=== PATIENT | female | born 1980 ===

== ENCOUNTER → 2020-09-22 12:43 | Outpatient (BNVA) | payer OTHER, SELFPAY | PROVIDERS: PCP Internal Medicine; Referring Provider Internal Medicine; Visit Provider Physician Assistant | DX: K62.5 Hemorrhage of anus and rectum (principal); R10.33 Periumbilical pain; R19.5 Other fecal abnormalities | CPT/HCPCS: 99212 ==

== ENCOUNTER 2020-11-06 10:26 | Day surgery (SDC) | payer OTHER, SELFPAY ==
[2020-10-31 15:41] VITALS: BMI 23.8
--- NOTE | 2020-11-05 13:23 | HO.ANESPROP2 ---
Documented by User: Betzy Dickey 11/05/20 13:24 HPI - Anesthesia Eval Consult details Narrative: 40yo F for Colonoscopy PMFSH Past Medical History Medical History History of depression Hx of gastroenteritis Menopausal disorder Rectal bleeding Family History Family History Maternal Aunt Colon cancer Father No problems noted. 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 Allergies Allergy/AdvReac Type Severity Reaction Status Date / Time strawberry [STRAWBERRY] Allergy Unknown RASH Verified 11/06/20 10:45 Home Medications Medication Instructions Recorded Confirmed Type multivitamin 1 tab PO DAILY 09/22/20 10/31/20 History omeprazole 1 cap PO DAILY 10/31/20 10/31/20 History Exam Exam Date and Time: November 05, 2020 1323 Height,Weight and Vital Signs: Height 5 ft 2 in Weight 58.967 kg Assessment and Plan Assessment Anesthesia Assessment: Chart Reviewed Documented by User: Ezio Cartwright MD 11/06/20 12:25 PMFSH Past Medical History Medical History History of depression Hx of gastroenteritis Menopausal disorder Rectal bleeding Family History Family History Maternal Aunt Colon cancer Father No problems noted. 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 Allergies Allergy/AdvReac Type Severity Reaction Status Date / Time strawberry [STRAWBERRY] Allergy Unknown RASH Verified 11/06/20 10:45 Home Medications Medication Instructions Recorded Confirmed Type multivitamin 1 tab PO DAILY 09/22/20 10/31/20 History omeprazole 1 cap PO DAILY 10/31/20 10/31/20 History Exam Airway Mallampati Class: II TM Dist: >3cm Neck ROM: Full Loose/Missing/Broken Teeth: No Heart: rrr, ttp along sternum and left chest wall Lungs: nl Other: ao Assessment and Plan Assessment Anesthesia Assessment: Anesthesia Plan Discussed and Chart Reviewed Final Anesthetic Review NPO: Yes ASA Class: II Final Preanesthetic Review: No Changes in Pt Med Stat, Meds/Allgs Chart Reviewed, Consent Obtained/Reviewed and Anes Risks/Benef Reviewed Patient Risk: Low Procedure Risk: Low Anesthetic Plan Anesthetic Plan: MAC: Disposition: Standard PACU
[2020-11-06] VITALS (11 sets, daily range): BP systolic 98–123; BP diastolic 42–76; PULSE 75–94; RESP 14–20; TEMP 36.4–37.3; O2SAT 97–99
--- NOTE | 2020-11-06 | XR_ITS ---
EXAMINATION: XR ABDOMEN KUB CLINICAL INDICATION: Lower abdominal pain after colonoscopy COMPARISON: None TECHNIQUE: AP view of the abdomen. FINDINGS: There is air seen throughout the small and large bowel. There are no dilated loops of bowel to suggest obstruction. There is no evidence of free air. There are surgical clips in the right upper quadrant suggestive of previous cholecystectomy. There is a curvilinear metal density projecting over the left mid abdomen. This may represent something on the patient's skin or clothing. Clinical correlation is recommended to exclude possible foreign body. Bony structures are unremarkable.. XR/XR KUB IMPRESSION: No evidence of obstruction or free air. Curvilinear metal density projecting over the left upper quadrant/stomach. This may represent something on the patient's skin or clothing. Clinical correlation to exclude foreign body recommended.
--- NOTE | 2020-11-06 10:40 | PC.NURSE ---
patient states early menopaUSE STARTING WHEN SHE WAS 36. NO PERIODS.
--- NOTE | 2020-11-06 11:00 | PC.NURSE ---
MD COPELAND AWARE OF PATIENTS ONSET OF CP A FEW DAYS AGO. INCREASED PAIN WITH PALPATION OF MD COPELAND.
--- NOTE | 2020-11-06 11:12 | PC.NURSE ---
WILFRID FLEET ENEMA LAYING ON HER LEFT SIDE.
--- NOTE | 2020-11-06 11:13 | PC.NURSE ---
NO NEW ORDERS FROM ANESTHESIA
--- NOTE | 2020-11-06 11:28 | MHC.SHP ---
Pre-Procedural Eval Section B Chief Complaint: rectal bleeding Relevant Family History (Specify if Yes): No Relevant Social History: None Present Medications: see Short Stay Collaborative assessment Medical History: Significant History (History of depression Hx of gastroenteritis Rectal bleeding) History of Previous Operations: Relevant previous surgery/procedure and date(s) (cholecystectomy) Allergies: Allergies Allergy/AdvReac Type Severity Reaction Status Date / Time strawberry [STRAWBERRY] Allergy Unknown RASH Verified 11/06/20 10:45 Review of Systems Sugical H&P ROS: Negative: Constitution, Cardiovascular, Respiratory, Neurological, Psychiatric, Hem-Onc, Allergic/Immunologic, Gastrointestinal, Genitourinary, Musculoskeletal, Integumentary, Endocrine and Eyes/Ears/Nose/Throat Exam Surgical H&P Exam: Normal: HEENT, Normal: Heart, Normal: Lungs, Normal: Extremities, Normal: Abdomen, Normal: Skin and Normal: Neurological Plan Diagnosis/Plan: Unchanged I have reviewed the history and physical and performed a pertinent physical examination on my patient. No changes have occurred unless specified.
[2020-11-06] MEDS: Sodium Phosphate,Mono-Dibasic 133 ML ENEMA 266 ML PR (11:30)
[2020-11-06] MEDS: Lactated Ringers 1,000 ML 100 ML IVCONT (11:45)
--- NOTE | 2020-11-06 12:30 | P.BOP_ITS ---
Brief Operative Note Date of Service: 11/06/20 Pre-op diagnosis: rectal bleeding Post-op diagnosis: same Procedure: Operative Information Procedure Description: Colonoscopy COLONOSCOPY Instrument: Olympus variable stiffness pediatric scope 190L Colonoscopy Monitoring: Vital signs and clinical assessment, continuous EKG monitoring, Pulse oximetry, Carbon Dioxide monitoring and blood pressure monitoring were done throughout the procedure. Colon withdrawal time was 12 minutes. Procedure: The patient was placed in the left lateral decubitis position and pre-procedure medications were administered. After a digital rectal examination of the ano-rectum, the video colonoscope was inserted into the rectum and advanced through the colon to the cecum/TI. The colonoscope was slowly withdrawn in a retrograde panoramic fashion and the colon mucosa was carefully examined including a retroflexed view of the rectum. Findings and interventions are described below. Procedure Difficulty:mildly difficult Findings: Terminal Ileum-normal Cecum:normal Ascending Colon: normal Transverse Colon -normal Descending Colon:normal Sigmoid Colon: normal Rectum: Retroflexion with small to moderate sized internal hemorrhoids, grade I, there was erythema and granularity to the distal rectum consistent with mild proctitis, bx taken Anorectum - normal Colon preparation: [place] Bowel Preparation Scale Right colon; 0 Transverse colon: 1 Left colon; 2 (0 = Unprepared colon segment with mucosa not seen due to solid stool that cannot be cleared. 1 = Portion of mucosa of the colon segment seen, but other areas of the colon segment not well seen due to staining, residual stool and/or opaque liquid. 2 = Minor amount of residual staining, small fragments of stool and/or opaque liquid, but mucosa of colon segment seen well. 3 = Entire mucosa of colon segment seen well with no residual staining, small fragments of stool or opaque liquid) Impression and Post Procedure Diagnosis: internal hemorrhoids proctitis Plan: High fiber diet leaflet Avoid straining at stool, epsom salts and sitz bath, trial of steroid suppository and see if helps sx Repeat Colonoscopy in 2-3 years or earlier if clinically indicated Above findings were reviewed with the patient and relevant handouts were provided if indicated. Surgeon: Forrest Ruiz MD Anesthesia: MAC Estimated blood loss (mL): 0 Condition: stable Disposition: PACU
[2020-11-06] MEDS: Ibuprofen 400 MG TABLET PO (13:39)
[2020-11-06] MEDS: Dicyclomine HCl 10 MG CAPSULE PO (13:58)
[2020-11-06] MEDS: Simethicone 80 MG TAB.CHEW PO (14:52)
--- NOTE | 2020-12-04 11:17 | P.OP_ITS ---
Operative Note Operative Note Date of Service: 11/06/20 Narrative: ADDENDUM She was c/o deep lower abdo pain more into the pelvis, abdomen totally soft, no guarding or firmness, KUB with small amounts of gas and stool, no perf. She was given bentyl and ibuprofen, simethicone but sx persisted so sent to Ed, report given, may need UA and pelvic imaging, but no real clinical evidence of perforation--she did say she had exact same pain year ago which resolved itself Addendum Documented By:Forrest Ruiz MD11/06/20 1450 Addendum Signed By:<Electronically signed by Forrest Ruiz MD>11/06/20 2094 Brief Operative Note Date of Service: 11/06/20 Pre-op diagnosis: rectal bleeding Post-op diagnosis: same Procedure: Operative Information Procedure Description: Colonoscopy COLONOSCOPY Instrument: Olympus variable stiffness pediatric scope 190L Colonoscopy Monitoring: Vital signs and clinical assessment, continuous EKG monitoring, Pulse oximetry, Carbon Dioxide monitoring and blood pressure monitoring were done throughout the procedure. Colon withdrawal time was 12 minutes. Procedure: The patient was placed in the left lateral decubitis position and pre-procedure medications were administered. After a digital rectal examination of the ano-rectum, the video colonoscope was inserted into the rectum and advanced through the colon to the cecum/TI. The colonoscope was slowly withdrawn in a retrograde panoramic fashion and the colon mucosa was carefully examined including a retroflexed view of the rectum. Findings and interventions are described below. Procedure Difficulty:mildly difficult Findings: Terminal Ileum-normal Cecum:normal Ascending Colon: normal Transverse Colon -normal Descending Colon:normal Sigmoid Colon: normal Rectum: Retroflexion with small to moderate sized internal hemorrhoids, grade I, there was erythema and granularity to the distal rectum consistent with mild proctitis, bx taken Anorectum - normal Colon preparation: Everson Bowel Preparation Scale Right colon; 0 Transverse colon: 1 Left colon; 2 (0 = Unprepared colon segment with mucosa not seen due to solid stool that cannot be cleared. 1 = Portion of mucosa of the colon segment seen, but other areas of the colon segment not well seen due to staining, residual stool and/or opaque liquid. 2 = Minor amount of residual staining, small fragments of stool and/or opaque liquid, but mucosa of colon segment seen well. 3 = Entire mucosa of colon segment seen well with no residual staining, small fragments of stool or opaque liquid) Impression and Post Procedure Diagnosis: internal hemorrhoids proctitis Plan: High fiber diet leaflet Avoid straining at stool, epsom salts and sitz bath, trial of steroid suppository and see if helps sx Repeat Colonoscopy in 2-3 years or earlier if clinically indicated
== END 2020-11-06 23:59 | disposition home or self-care (01) ==
PROVIDERS: PCP Internal Medicine; Visit Provider Internal Medicine Gastroenterology
PROC: 0DJD8ZZ Inspection of Lower Intestinal Tract, Via Natural or Artificial Opening Endoscopic (ICD-10-PCS; CPT 45378; principal; 2020-11-06 11:50)
DX: K62.5 Hemorrhage of anus and rectum (principal); R10.30 Lower abdominal pain, unspecified; K62.89 Other specified diseases of anus and rectum; K64.0 First degree hemorrhoids
CPT/HCPCS: 45380; 74018; 88305

== ENCOUNTER 2020-11-06 15:29 | Emergency (ER) | payer OTHER, SELFPAY ==
[2020-11-06 15:30] VITALS: BP 114/58; PULSE 81; RESP 16; TEMP 37.1; O2SAT 99; BMI 23.6
--- NOTE | 2020-11-06 15:54 | US_ITS ---
EXAMINATION: PELVIC ULTRASOUND CLINICAL INFORMATION: Pelvic pain/abdominal pain COMPARISON: None TECHNIQUE: Both transabdominal and endovaginal scanning was performed. Color-flow spectral Doppler was also utilized. FINDINGS: An anteverted uterus is present measuring 3.0 x 4.4 x 6.5 cm for a volume of 45 mL. The endometrium appears unremarkable at 0.3 cm thick. No uterine masses are seen. The right ovary measures 1.8 x 0.9 x 1.4 cm for a volume of 1.2 mL. Left ovary measures 2.1 x 0.7 x 0.8 cm for a volume of 0.6 mL. Normal arterial and venous flow is noted in both ovaries. No free fluid is present in the cul-de-sac. US/US pelvic ovarian doppler IMPRESSION: Negative exam
--- NOTE | 2020-11-06 15:54 | US_ITS ---
EXAMINATION: PELVIC ULTRASOUND CLINICAL INFORMATION: Pelvic pain/abdominal pain COMPARISON: None TECHNIQUE: Both transabdominal and endovaginal scanning was performed. Color-flow spectral Doppler was also utilized. FINDINGS: An anteverted uterus is present measuring 3.0 x 4.4 x 6.5 cm for a volume of 45 mL. The endometrium appears unremarkable at 0.3 cm thick. No uterine masses are seen. The right ovary measures 1.8 x 0.9 x 1.4 cm for a volume of 1.2 mL. Left ovary measures 2.1 x 0.7 x 0.8 cm for a volume of 0.6 mL. Normal arterial and venous flow is noted in both ovaries. No free fluid is present in the cul-de-sac. US/US pelvic complete IMPRESSION: Negative exam
--- NOTE | 2020-11-06 15:55 | CT_ITS ---
EXAMINATION: CT ABDOMEN AND PELVIS WITH CONTRAST CLINICAL INFORMATION: Lower abdominal pain status post colonoscopy. COMPARISON: None TECHNIQUE: Multidetector volumetric images were obtained from the superior aspect of the liver through the pubic symphysis following administration 85 mL of Omnipaque 350 intravenous contrast. Sagittal and coronal reformatted images were obtained on the technologist's workstation. Oral Contrast: No. This CT examination was performed using dose optimization techniques as appropriate, variously including the following: *Automated exposure control. *Adjustment of mA and/or kV according to patient size (this includes techniques or standardized protocols for targeted exams where dose is matched to indication/reason for exam; i.e. extremities or head). *Use of iterative reconstruction technique. DLP: 403 mGy-cm FINDINGS: LUNG BASES: The visualized lung bases are unremarkable. LIVER, GALLBLADDER, AND BILIARY TREE: There is mild prominence of intrahepatic biliary ducts status post cholecystectomy. No focal liver mass is seen. PANCREAS: Unremarkable. SPLEEN: Unremarkable. ADRENAL GLANDS: Unremarkable. KIDNEYS AND URETERS: The kidneys are normal in size, shape, and attenuation. No hydronephrosis, hydroureter, or calculi seen. No perinephric stranding. BLADDER: Unremarkable. GASTROINTESTINAL TRACT: The small and large bowel are unremarkable. A large amount of fluid is present in the rectum. The appendix is unremarkable. No free intraperitoneal air is seen to suggest bowel rupture. ABDOMINAL WALL: No significant hernia is appreciated. LYMPH NODES: Normal. VASCULAR: Unremarkable. PELVIC VISCERA: An anteverted uterus is present. An abnormal adnexal mass is not seen. No free intraperitoneal fluid is present. OSSEOUS STRUCTURES: Unremarkable. CT/CT abdomen pelvis w con IMPRESSION: A cause for the patient's post colonoscopy lower abdominal pain has not been found.
[2020-11-06 16:24] VITALS: RESP 16
[2020-11-06] MEDS: ondansetron HCL 4 MG/2 ML VIAL IVPUSH (16:24)
[2020-11-06] MEDS: Morphine Sulfate 4 MG/ML CARTRIDGE IVPUSH (16:24)
[2020-11-06] MEDS: 0.9 % Sodium Chloride 1,000 ML 999 ML IV (16:24)
--- NOTE | 2020-11-06 16:33 | US_ITS ---
EXAMINATION: PELVIC ULTRASOUND CLINICAL INFORMATION: Pelvic pain/abdominal pain COMPARISON: None TECHNIQUE: Both transabdominal and endovaginal scanning was performed. Color-flow spectral Doppler was also utilized. FINDINGS: An anteverted uterus is present measuring 3.0 x 4.4 x 6.5 cm for a volume of 45 mL. The endometrium appears unremarkable at 0.3 cm thick. No uterine masses are seen. The right ovary measures 1.8 x 0.9 x 1.4 cm for a volume of 1.2 mL. Left ovary measures 2.1 x 0.7 x 0.8 cm for a volume of 0.6 mL. Normal arterial and venous flow is noted in both ovaries. No free fluid is present in the cul-de-sac. US/US transvaginal IMPRESSION: Negative exam
[2020-11-06 16:37] LABS: Basophils Percent Auto 0.4 % (0-2); Eosinophils Absolute Auto 0.1 X10*3/uL (0.0-0.4); Eosinophils Percent Auto 0.8 % (0-4); Hematocrit 32.5 % (37-47); Hemoglobin 10.8 g/dl (12.0-16.0); Imm Gran Abs Auto 0.02 X10*3/uL (0.00-0.03); Imm Gran Pct Auto 0.2 % (0.0-0.4); Lymphocytes Absolute Auto 2.6 X10*3/uL (1.2-4.9); Lymphocytes Percent Auto 25.2 % (20-40); MANUAL DIFF FLAG NO; Mean Corpuscular HGB Conc 33.2 g/dl (31.0-35.0); Mean Corpuscular Hemoglobin 30.1 pg (27.0-33.0); Mean Corpuscular Volume 90.5 fL (80-98); Mean Platelet Volume 9.7 fL (9.4-12.3); Monocytes Absolute Auto 0.4 X10*3/uL (0.1-1.2); Monocytes Percent Auto 3.8 % (2-11); Neutrophils Absolute Auto 7.1 X10*3/uL (2.0-8.3); Neutrophils Percent Auto 69.6 % (45-73); Platelet Count 254 X10*3/uL (160-400); Red Blood Count 3.59 X10*6/uL (4.20-5.50); Red Cell Distribution Width 11.5 % (11.0-16.0); White Blood Count 10.2 X10*3/uL (4.8-10.8)
--- NOTE | 2020-11-06 16:44 | ECG_ITS ---
Test Reason : ABDOMINAL PAIN Blood Pressure : / mmHG Vent. Rate : 082 BPM Atrial Rate : 082 BPM P-R Int : 146 ms QRS Dur : 074 ms QT Int : 390 ms P-R-T Axes : 060 058 040 degrees QTc Int : 455 ms Normal sinus rhythm Low voltage QRS Borderline ECG When compared to the previous EKG of No significant changes seen Referred By: [place] Dave Electronically Signed By:Kristian Mathews
--- NOTE | 2020-11-06 16:50 | PC.NURSE ---
Pt off at US
[2020-11-06 16:51] LABS: INTERNATIONAL NORM RATIO 1.1 (0.9-1.1); Prothrombin Time 13.4 SEC (10.8-13.0)
[2020-11-06 16:54] LABS: Partial Thromboplastin Time 29.8 SEC (24.1-38.0)
[2020-11-06 16:56] LABS: Alanine Aminotransferase 13 U/L (0-31); Albumin Level 4.1 g/dL (3.5-5.0); Alkaline Phosphatase 81 U/L (39-117); Anion Gap 11 (12-20); Aspartate Amino Transferase 16 U/L (5-31); Bilirubin Total 1.2 mg/dL (0.0-1.0); Blood Urea Nitrogen 10 mg/dL (9-16); Calcium 8.8 mg/dL (8.4-10.2); Carbon Dioxide 26 mmol/L (22-29); Chloride 107 mmol/L (96-108); Creatinine Clr Calc Pharmacy 87.8; Estimated Glomerular Filt Rate > 60; Glucose Random 81 mg/dL (60-115); Potassium 3.9 mmol/l (3.3-5.1); Sodium 140 mmol/L (135-145); Total Protein 6.6 g/dL (6.5-8.0)
[2020-11-06 17:07] LABS: Troponin-I High Sensitivity < 3.5 ng/L (<3.5-17.0)
--- NOTE | 2020-11-06 17:16 | ED_ITS ---
HPI - Abdominal Pain General Chief Complaint: Abdominal Pain Stated Complaint: Abdominal pain Time Seen by Provider: 11/06/20 15:54 Source: other (Short-stay SIRS) Limitations: no limitations History of Present Illness HPI narrative: This is a pleasant 40-year-old female with past medical history that is significant for early menopause no longer has her menses, cholecystectomy, rectal bleeding which she has been having for several months she in fact had a colonoscopy for this reason today and after colonoscopy he had lower abdominal pain for which she was given Bentyl, ibuprofen and simethicone and subsequently had a KUB that did not show any acute findings given the pain she was transferred to the emergency room for further evaluation. I did discuss the case with in person c Dr. Ruiz GI attending for hand off report. Again at this routine colonoscopy for assessment of abdominal pain/rectal bleeding which has been ongoing issue for several months overall uneventful procedure showed internal hemorrhoids and proctitis. MD elicited complaint: abdominal pain Quality: aching Radiation: none Migration to: no migration Exacerbating factors: nothing Associated symptoms: denies other symptoms Related Data Patient : No Home Medications Medication Instructions Recorded Confirmed multivitamin 1 tab PO DAILY 09/22/20 10/31/20 omeprazole 1 cap PO DAILY 10/31/20 10/31/20 Previous Rx's Medication Instructions Recorded miralax See Rx Instructions PO ONCE #238 g 09/22/20 hydrocortisone acetate [Anusol-HC] 25 mg TX BEDTIME #12 ea 11/06/20 Allergies Allergy/AdvReac Type Severity Reaction Status Date / Time strawberry [STRAWBERRY] Allergy Unknown RASH Verified 11/06/20 10:45 Review of Systems Review of Systems Constitutional: No Weight loss, No Fever, No Chills, No Night Sweats, No Fatigue, No Malaise ENT/Mouth: No Hearing loss, No Ear Pain, No Nasal Congestion, No Sinus Pain, No Hoarseness, No sore throat, No Rhinorrhea, No Swallowing Difficulty Eyes: No Eye Pain, No Swelling, No Redness, No Foreign Body, No Discharge, No Vision Changes Cardiovascular: No Chest Pain, No SOB, No Dyspnea on Exertion, No Orthopnea, No Edema, No Palpitations Respiratory: No Cough, No Sputum, No Wheezing, No Smoke Exposure, No Dyspnea Gastrointestinal:As noted in HPI, No Hematochezia, No Melena Genitourinary: no irregular bleeding, No Dysuria, No Urinary Frequency, No Hematuria, No Urinary Incontinence, No Urgency, No Flank Pain, No Urinary Flow Changes, No Hesitancy Musculoskeletal: No joint pain, No Myalgias, No Joint Swelling Skin: No Skin Lesions, No rash Neuro: No Weakness, No Numbness, No Paresthesias, No Loss of Consciousness, No Dizziness, No Headache Psych: No Social Issues Heme/Lymph: No Bruising, No Bleeding,No Lymphadenopathy Endocrine: No Polyuria, No Polydipsia, No Temperature Intolerance Physical Exam Vital Signs: Vital Signs: Last Vital Signs Temp 98.7 F 11/06/20 15:30 Pulse 85 11/06/20 17:48 Resp 16 11/06/20 17:48 BP 110/68 11/06/20 17:48 Pulse Ox 100 11/06/20 17:48 Body Mass Index 23.6 Reviewed Const: General: cooperative and healthy appearing; No acute distress or intoxicated appearing Nutritional Appearance: average body habitus Orientation/consciousness: patient oriented x3 HENMT: Head: Yes normal to inspection Ears: hearing grossly normal bilaterally Eyes: General: appearance normal, both eyes and all related structures Visual Molina: normal visual molina by confrontation Neck: Neck: Yes normal visual inspection and No tender Thyroid: Thyroid normal Chest: Chest palpation & inspection: normal inspection of the chest Resp: Effort & Inspection: normal respiratory effort Auscultation: clear to auscultation bilaterally Cardio: Jugular venous distension: no JVD Rhythm: regular rhythm Heart sounds: S1 normal heart sound present and S2 normal heart sound present GI: Inspection: Yes normal to inspection Palpation (GI): Soft to palpation and Tenderness to palpation present (GI) suprapubicly (mild ) Percussion: Yes normal to percussion Auscultation: normal bowel sounds : General: Yes no CVA tenderness Back/Spine/Pelvis: Back: no CVA tenderness Skin: General skin exam: no rashes or lesions noted Neuro: General: patient oriented x3 Extrem: General: Yes normal to inspection Course Course Course Narrative: She has been resting comfortably in no acute distress. Able to get out of bed to provide UA with stable gait no abdominal guarding with ambulation. Labs as far stable. I did have a further discussion with her in regards to the chronicity of her pain she does tell me that she has had this pain prior to the procedure and has been going on for a while over a year at least where she will get intermittent suprapubic pains that her shooting like sometimes in the mornings will have to stay still in the position and will resolve. She denies any vaginal bleeding or discharge. States she is not sexually active no concern for STI. This time her abdominal exam is remains stable. Pelvic ultrasound with ovarian Doppler unremarkable. CT is pending. Reevaluation(s) Reevaluation #1: CT of the abdomen pelvis without acute findings. Labs overall stable. Able to drink ginny reanna and crackers. Will be discharged home with outpatient follow-up. She does have follow-up for colonoscopy with Dr. Sara PERKINS and will follow up with her primary care doctor given the chronicity of the pain and the region I did advise her to follow-up gynecology as well. MDM - Abdominal Pain MDM Narrative Medical decision making narrative: Check labs, CT abdomen pelvis given postprocedure rule out perforation though clinically does not appear so, pelvic ultrasound ovarian cyst versus torsion less likely. Will treat with gradual fluids, antiemetics and analgesia p.r.n.. Will remain NPO. Differential Diagnosis Differential diagnosis: Likely abdominal pain, bowel perforation, calculus of kidney, ovarian cyst and renal colic; Unlikely aortic dissection, acute appendicitis, constipation, diverticulitis, endometriosis, gastroenteritis, gastritis, mesenteric ischemia, peptic ulcer disease and small bowel obstruction Medical Records Attestation: I reviewed the patient's medical records. Lab Data Attestation: I reviewed the patient's lab results. Result diagrams: 11/06/20 16:29 11/06/20 16:30 Labs: Lab Results 11/06/20 11/06/20 11/06/20 Range/Units 16:29 16:30 16:30 WBC 10.2 (4.8-10.8) X10*3/uL RBC 3.59 L (4.20-5.50) X10*6/uL Hgb 10.8 L (12.0-16.0) g/dl Hct 32.5 L (37-47) % MCV 90.5 (80-98) fL MCH 30.1 (27.0-33.0) pg MCHC 33.2 (31.0-35.0) g/dl RDW 11.5 (11.0-16.0) % Plt Count 254 (160-400) X10*3/uL MPV 9.7 (9.4-12.3) fL Immature Gran % (Auto) 0.2 (0.0-0.4) % Neut % (Auto) 69.6 (45-73) % Lymph % (Auto) 25.2 (20-40) % [place] % (Auto) 3.8 (2-11) % Eos % (Auto) 0.8 (0-4) % Baso % (Auto) 0.4 (0-2) % Lymph # (Auto) 2.6 (1.2-4.9) X10*3/uL [place] # (Auto) 0.4 (0.1-1.2) X10*3/uL Eos # (Auto) 0.1 (0.0-0.4) X10*3/uL Baso # (Auto) 0.0 (0.0-0.2) X10*3/uL Abs Immat Gran (auto) 0.02 (0.00-0.03) X10*3/uL Absolute Neuts (auto) 7.1 (2.0-8.3) X10*3/uL Absolute Nucleated RBC 0.000 (0.0-0.012) X10*3/uL Nucleated RBC % (auto) 0.0 (0.0-0.2) /100WBC PT 13.4 H (10.8-13.0) SEC INR 1.1 (0.9-1.1) APTT 29.8 (24.1-38.0) SEC Sodium 140 (135-145) mmol/L Potassium 3.9 (3.3-5.1) mmol/l Chloride 107 (96-108) mmol/L Carbon Dioxide 26 (22-29) mmol/L Anion Gap 11 L (12-20) BUN 10 (9-16) mg/dL Creatinine 0.66 (0.5-1.4) mg/dL Estim Creat Clear Calc 87.8 Estimated GFR > 60 Random Glucose 81 (60-115) mg/dL Calcium 8.8 (8.4-10.2) mg/dL Total Bilirubin 1.2 H (0.0-1.0) mg/dL AST 16 (5-31) U/L ALT 13 (0-31) U/L Alkaline Phosphatase 81 (39-117) U/L Troponin I High Sens (<3.5-17.0) ng/L Total Protein 6.6 (6.5-8.0) g/dL Albumin 4.1 (3.5-5.0) g/dL Urine Color Urine Appearance Urine pH (5.0-8.0) Ur Specific [place] (1.005-1.025) Urine Protein (NEG-TRACE) MG/DL Urine Glucose (UA) (NEG) MG/DL Urine Ketones (NEG) MG/DL Urine Blood (NEG) Urine Nitrite (NEG) Ur Leukocyte Esterase (NEG) Urine RBC (0) /HPF Urine WBC (0-4) /HPF Ur Squamous Epith Cells /LPF Urine Bacteria /LPF Urine Test (NEGATIVE) 11/06/20 11/06/20 Range/Units 16:30 17:47 WBC (4.8-10.8) X10*3/uL RBC (4.20-5.50) X10*6/uL Hgb (12.0-16.0) g/dl Hct (37-47) % MCV (80-98) fL MCH (27.0-33.0) pg MCHC (31.0-35.0) g/dl RDW (11.0-16.0) % Plt Count (160-400) X10*3/uL MPV (9.4-12.3) fL Immature Gran % (Auto) (0.0-0.4) % Neut % (Auto) (45-73) % Lymph % (Auto) (20-40) % [place] % (Auto) (2-11) % Eos % (Auto) (0-4) % Baso % (Auto) (0-2) % Lymph # (Auto) (1.2-4.9) X10*3/uL [place] # (Auto) (0.1-1.2) X10*3/uL Eos # (Auto) (0.0-0.4) X10*3/uL Baso # (Auto) (0.0-0.2) X10*3/uL Abs Immat Gran (auto) (0.00-0.03) X10*3/uL Absolute Neuts (auto) (2.0-8.3) X10*3/uL Absolute Nucleated RBC (0.0-0.012) X10*3/uL Nucleated RBC % (auto) (0.0-0.2) /100WBC PT (10.8-13.0) SEC INR (0.9-1.1) APTT (24.1-38.0) SEC Sodium (135-145) mmol/L Potassium (3.3-5.1) mmol/l Chloride (96-108) mmol/L Carbon Dioxide (22-29) mmol/L Anion Gap (12-20) BUN (9-16) mg/dL Creatinine (0.5-1.4) mg/dL Estim Creat Clear Calc Estimated GFR Random Glucose (60-115) mg/dL Calcium (8.4-10.2) mg/dL Total Bilirubin (0.0-1.0) mg/dL AST (5-31) U/L ALT (0-31) U/L Alkaline Phosphatase (39-117) U/L Troponin I High Sens < 3.5 (<3.5-17.0) ng/L Total Protein (6.5-8.0) g/dL Albumin (3.5-5.0) g/dL Urine Color STRAW Urine Appearance CLEAR Urine pH 6.5 (5.0-8.0) Ur Specific [place] 1.010 (1.005-1.025) Urine Protein NEG (NEG-TRACE) MG/DL Urine Glucose (UA) NEG (NEG) MG/DL Urine Ketones 5 (NEG) MG/DL Urine Blood TRACE (NEG) Urine Nitrite NEG (NEG) Ur Leukocyte Esterase NEG (NEG) Urine RBC 1-4 (0) /HPF Urine WBC 0 (0-4) /HPF Ur Squamous Epith Cells 1+ /LPF Urine Bacteria NONE /LPF Urine Test NEGATIVE (NEGATIVE) Imaging Data Pelvic ovarian ultrasound: Radiologist's impression: [address] [address] Ultrasound Report Signed Patient: Alisson Clayton#: [id number] : 1980Acct:[id number] Age/Sex: 40 / FADM Date: 11/06/20 Loc: HO.ED Attending Dr: Ordering Physician: [place] Dave [facility] Date of Service: 11/06/20 Procedure(s): US pelvic complete Accession Number(s): [id number] cc: [place] Dave [facility]~ EXAMINATION: PELVIC ULTRASOUND CLINICAL INFORMATION: Pelvic pain/abdominal pain COMPARISON: None TECHNIQUE: Both transabdominal and endovaginal scanning was performed. Color-flow spectral Doppler was also utilized. FINDINGS: An anteverted uterus is present measuring 3.0 x 4.4 x 6.5 cm for a volume of 45 mL. The endometrium appears unremarkable at 0.3 cm thick. No uterine masses are seen. The right ovary measures 1.8 x 0.9 x 1.4 cm for a volume of 1.2 mL. Left ovary measures 2.1 x 0.7 x 0.8 cm for a volume of 0.6 mL. Normal arterial and venous flow is noted in both ovaries. No free fluid is present in the cul-de-sac. US/US pelvic complete IMPRESSION: Negative exam Dictated By:MOON GARCIA MD Signed By:<Electronically signed by MOON GARCIA MD in OV>11/06/20 1729 DD/ 1554 TD/TT: Manager Plan: SS Discharge Plan Discharge Clinical Impression: Abdominal pain Qualifiers: Abdominal location: lower abdomen, unspecified Qualified Code(s): R10.30 - Lower abdominal pain, unspecified Patient Disposition: Home, Self-Care Instructions: Abdominal Pain (ED) Additional Instructions: Drink plenty fluids High-fiber diet Avoid straining Follow-up with GI as planned Return if any concerns or worsening symptoms Thank you Prescriptions: No Action omeprazole 20 mg capsule,delayed release(DR/EC) 1 cap PO DAILY RF: 0 hydrocortisone acetate [Anusol-HC] 25 mg suppository 25 mg TX BEDTIME Qty: 12 RF: 0 multivitamin Tablet 1 tab PO DAILY RF: 0 miralax See Rx Instructions PO ONCE Qty: 238 RF: 0 Referrals: Cira Rouse MD [Primary Care Provider] - 1 week Interventions: ED Discharge Assessment Last Done: 11/06/20 20:07 Discharge Date/Time: 11/06/20 20:08 [facility] Past Medical History Medical History History of depression Hx of gastroenteritis Menopausal disorder Rectal bleeding Surgical History History of cholecystectomy Family History Family History Maternal Aunt Colon cancer Father No problems noted. 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
[2020-11-06] MEDS: iohexoL 350 MG/ML 100 ML INFUS..BTL IV (17:39)
[2020-11-06 17:48] VITALS: BP 110/68; PULSE 85; RESP 16; O2SAT 100
[2020-11-06 18:02] LABS: Glucose Urine UA NEG (NEG); Leukocyte Esterase Urine NEG (NEG); Nitrite Urine NEG (NEG); PH 6.5 (5.0-8.0); Urine Blood TRACE (NEG); Urine Ketones 5 MG/DL (NEG); Urine Protein NEG (NEG-TRACE)
[2020-11-06 18:04] LABS: Appearance Urine CLEAR; Color Urine STRAW
[2020-11-06 18:05] LABS: UPreg QC Valid YES; Urine Pregnancy NEGATIVE (NEGATIVE)
[2020-11-06 18:15] LABS: Squamous Epithelial Cell Urine 1+ /LPF; WBC Urine 0 /HPF (0-4)
== END 2020-11-06 20:08 | disposition home or self-care (01) ==
PROVIDERS: Nurse Practitioner Primary Care; Emergency Provider Emergency Medicine; PCP Internal Medicine
DX: R10.30 Lower abdominal pain, unspecified (principal); R10.2 Pelvic and perineal pain; Z87.891 Personal history of nicotine dependence; Z79.899 Other long term (current) drug therapy
CPT/HCPCS: 36415; 74177; 76830; 76856; 80053; 81001; 81025; 84484; 85025; 85610; 85730; 93005; 93975; 96361; 96374; 96375; 99284; J2270; J2405; Q9967

== ENCOUNTER → 2020-11-19 11:39 | Outpatient (BNVA) | payer OTHER, SELFPAY | PROVIDERS: PCP Internal Medicine; Referring Provider Internal Medicine; Visit Provider Physician Assistant | DX: Z76.89 Persons encountering health services in other specified circumstances (principal) ==

== ENCOUNTER 2021-01-24 17:33 | Emergency (ER) | payer OTHER, SELFPAY ==
--- NOTE | ~2021-01-24 | XR_ITS ---
EXAMINATION: XR CHEST CLINICAL INFORMATION: Cough, question COVID COMPARISON: None TECHNIQUE: Frontal view of the chest was obtained. FINDINGS: Lungs are clear. No focal consolidation or mass. Normal pulmonary vascularity. No pleural effusion or pneumothorax. Normal heart size. No acute osseous abnormality. XR/XR chest 1V IMPRESSION: No acute pulmonary disease.
--- NOTE | 2021-01-24 17:43 | ED_ITS ---
HPI - General Adult General Chief complaint: General Medical Stated complaint: Chills bodyaches vomiting Time Seen by Provider: 01/24/21 17:43 Source: patient Mode of arrival: ambulatory Limitations: no limitations History of Present Illness HPI narrative: Patient been vomiting since yesterday avoided multiple times no significant abdominal pain complaining of some slight low back pain slight discomfort when urinating no fever no chills feel tired no recent exposure to COVID-19 occasional dry cough+ Onset (ago): day(s) Related Data Home Medications Medication Instructions Recorded Confirmed multivitamin 1 tab PO DAILY 09/22/20 10/31/20 omeprazole 1 cap PO DAILY 10/31/20 10/31/20 Previous Rx's Medication Instructions Recorded hydrocortisone acetate [Anusol-HC] [address] BEDTIME #12 ea 11/06/20 hydrocortisone acetate [address] BEDTIME PRN #12 ea 11/20/20 rectal suppository hydrocortisone 2.5 % topical cream [address] DAILY PRN #30 g 11/26/20 with perineal applicator ondansetron 4 mg PO Q6-8H PRN #15 tab 01/24/21 Allergies Allergy/AdvReac Type Severity Reaction Status Date / Time strawberry [STRAWBERRY] Allergy Unknown RASH Verified 11/06/20 10:45 Review of Systems Review of Systems: Constitutional : No Weight loss, No Fever, No Chills ENT/Mouth : No sore throat, No Rhinorrhea Eyes: No Eye Pain, No Swelling Cardiovascular : No Chest Pain, no palpitations Respiratory : + Cough, No Sputum, no shortness of breath Gastrointestinal : ++ Nausea, ++ Vomiting, No Diarrhea, No abdominal Pain, no black stools Genitourinary : No Dysuria, No Urinary Frequency Musculoskeletal : No joint pain, No Myalgias, No Joint Swelling Skin : No Skin Lesions, No rash Neuro : No Weakness, No Numbness, No Dizziness, No Headache Psych : No Anxiety/Panic, No Depression Heme/Lymph: No Bruising, No Lymphadenopathy Endocrine : No Polyuria, No Polydipsia All other systems reviewed and are negative [facility] Past Medical History Medical History Hemorrhoids History of depression Hx of gastroenteritis Menopausal disorder Rectal bleeding Surgical History History of cholecystectomy Family History Family History Maternal Aunt Colon cancer Father No problems noted. 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 Oriented X3. Looks sick Eyes: Pupils equal, round and reactive to light. ENT: Pharynx normal. Neck: Normal inspection. Neck supple. CVS: Normal heart rate and rhythm. Pulses normal. Respiratory: No respiratory distress. Breath sounds normal. Abdomen: Soft and nontender. Bowel sounds are present, no mass palpable, no CVA tenderness Skin: Skin warm and dry. Normal skin color. Normal skin turgor. Extremities: No lower extremity edema. Neuro: Oriented X 3. No motor deficit. No sensory deficit. Medical Decision Making MDM Narrative Medical decision making narrative: Patient has acute gastritis with vomiting without any significant abdominal pain workup is negative for any acute pathology chest x-ray and UA also negative COVID-19 also negative patient feeling much better after IV fluids able to take p.o. fluids Lab Data Lab results reviewed: Yes I reviewed the patient's lab results. Result diagrams: 01/24/21 19:25 01/24/21 19:25 Labs: Lab Results 01/24/21 01/24/21 01/24/21 Range/Units 19:25 19:25 19:25 WBC 9.8 (4.8-10.8) X10*3/uL RBC 4.06 L (4.20-5.50) X10*6/uL Hgb 12.1 (12.0-16.0) g/dl Hct 36.6 L (37-47) % MCV 90.1 (80-98) fL MCH 29.8 (27.0-33.0) pg MCHC 33.1 (31.0-35.0) g/dl RDW 11.8 (11.0-16.0) % Plt Count 278 (160-400) X10*3/uL MPV 9.6 (9.4-12.3) fL Immature Gran % (Auto) 0.3 (0.0-0.4) % Neut % (Auto) 86.4 H (45-73) % Lymph % (Auto) 11.2 L (20-40) % [place] % (Auto) 1.8 L (2-11) % Eos % (Auto) 0.0 (0-4) % Baso % (Auto) 0.3 (0-2) % Lymph # (Auto) 1.1 L (1.2-4.9) X10*3/uL [place] # (Auto) 0.2 (0.1-1.2) X10*3/uL Eos # (Auto) 0.0 (0.0-0.4) X10*3/uL Baso # (Auto) 0.0 (0.0-0.2) X10*3/uL Abs Immat Gran (auto) 0.03 (0.00-0.03) X10*3/uL Absolute Neuts (auto) 8.5 H (2.0-8.3) X10*3/uL Absolute Nucleated RBC 0.000 (0.0-0.012) X10*3/uL Nucleated RBC % (auto) 0.0 (0.0-0.2) /100WBC Sodium 139 (135-145) mmol/L Potassium 4.0 (3.3-5.1) mmol/L Chloride 104 (96-108) mmol/L Carbon Dioxide 25 (22-29) mmol/L Anion Gap 14 (12-20) BUN 12 (9-16) mg/dL Creatinine 0.68 (0.5-1.4) mg/dL Estim Creat Clear Calc 96.1 Estimated GFR > 60 Random Glucose 89 (60-115) mg/dL Calcium 9.3 (8.4-10.2) mg/dL Total Bilirubin 1.1 H (0.0-1.0) mg/dL Direct Bilirubin 0.4 (0.0-0.5) mg/dL AST 14 (5-31) U/L ALT 18 (0-31) U/L Alkaline Phosphatase 90 (39-117) U/L Total Protein 7.5 (6.5-8.0) g/dL Albumin 4.5 (3.5-5.0) g/dL Lipase (8-78) U/L Urine Color Urine Appearance Urine pH (5.0-8.0) Ur Specific [place] (1.005-1.025) Urine Protein (NEG-TRACE) MG/DL Urine Glucose (UA) (NEG) MG/DL Urine Ketones (NEG) MG/DL Urine Blood (NEG) Urine Nitrite (NEG) Ur Leukocyte Esterase (NEG) COVID-19 (KORINA) Negative (Negative) COVID-19 Clin Com See Note 01/24/21 01/24/21 Range/Units 19:25 21:38 WBC (4.8-10.8) X10*3/uL RBC (4.20-5.50) X10*6/uL Hgb (12.0-16.0) g/dl Hct (37-47) % MCV (80-98) fL MCH (27.0-33.0) pg MCHC (31.0-35.0) g/dl RDW (11.0-16.0) % Plt Count (160-400) X10*3/uL MPV (9.4-12.3) fL Immature Gran % (Auto) (0.0-0.4) % Neut % (Auto) (45-73) % Lymph % (Auto) (20-40) % [place] % (Auto) (2-11) % Eos % (Auto) (0-4) % Baso % (Auto) (0-2) % Lymph # (Auto) (1.2-4.9) X10*3/uL [place] # (Auto) (0.1-1.2) X10*3/uL Eos # (Auto) (0.0-0.4) X10*3/uL Baso # (Auto) (0.0-0.2) X10*3/uL Abs Immat Gran (auto) (0.00-0.03) X10*3/uL Absolute Neuts (auto) (2.0-8.3) X10*3/uL Absolute Nucleated RBC (0.0-0.012) X10*3/uL Nucleated RBC % (auto) (0.0-0.2) /100WBC Sodium (135-145) mmol/L Potassium (3.3-5.1) mmol/L Chloride (96-108) mmol/L Carbon Dioxide (22-29) mmol/L Anion Gap (12-20) BUN (9-16) mg/dL Creatinine (0.5-1.4) mg/dL Estim Creat Clear Calc Estimated GFR Random Glucose (60-115) mg/dL Calcium (8.4-10.2) mg/dL Total Bilirubin (0.0-1.0) mg/dL Direct Bilirubin (0.0-0.5) mg/dL AST (5-31) U/L ALT (0-31) U/L Alkaline Phosphatase (39-117) U/L Total Protein (6.5-8.0) g/dL Albumin (3.5-5.0) g/dL Lipase 22 (8-78) U/L Urine Color YELLOW Urine Appearance CLEAR Urine pH 7.0 (5.0-8.0) Ur Specific [place] 1.020 (1.005-1.025) Urine Protein NEG (NEG-TRACE) MG/DL Urine Glucose (UA) NEG (NEG) MG/DL Urine Ketones 15 (NEG) MG/DL Urine Blood NEG (NEG) Urine Nitrite NEG (NEG) Ur Leukocyte Esterase NEG (NEG) COVID-19 (KORINA) (Negative) COVID-19 Clin Com Discharge Plan Discharge Clinical Impression: Acute gastroenteritis Patient Disposition: Home, Self-Care Instructions: Acute Nausea and Vomiting (ED) Additional Instructions: Drink plenty of fluids take medication for nausea as advised Report to the ER/PCP if not better Prescriptions: New ondansetron 4 mg tablet,disintegrating 4 mg PO Q6-8H PRN (Reason: Nausea And Vomiting) Qty: 15 RF: 0 No Action hydrocortisone [Anusol-HC] 2.5 % cream with perineal applicator [address] DAILY PRN (Reason: hemorrhoids) Qty: 30 RF: 3 omeprazole 20 mg capsule,delayed release(DR/EC) 1 cap PO DAILY RF: 0 hydrocortisone acetate [Anusol-HC] 25 mg suppository [address] BEDTIME Qty: 12 RF: 0 multivitamin Tablet 1 tab PO DAILY RF: 0 hydrocortisone acetate [Anusol-HC] 25 mg suppository [address] BEDTIME PRN (Reason: hemorrhoids) Qty: 12 RF: 2 Interventions: ED Discharge Assessment Last Done: 01/24/21 22:02 Discharge Date/Time: 01/24/21 22:45
[2021-01-24 18:16] VITALS: BP 119/70; PULSE 92; RESP 16; TEMP 36.7; O2SAT 98; BMI 26.6
[2021-01-24 19:31] LABS: MANUAL DIFF FLAG NO
[2021-01-24 19:33] LABS: Basophils Percent Auto 0.3 % (0-2); Hematocrit 36.6 % (37-47); Hemoglobin 12.1 g/dl (12.0-16.0); Imm Gran Abs Auto 0.03 X10*3/uL (0.00-0.03); Imm Gran Pct Auto 0.3 % (0.0-0.4); Lymphocytes Absolute Auto 1.1 X10*3/uL (1.2-4.9); Lymphocytes Percent Auto 11.2 % (20-40); Mean Corpuscular HGB Conc 33.1 g/dl (31.0-35.0); Mean Corpuscular Hemoglobin 29.8 pg (27.0-33.0); Mean Corpuscular Volume 90.1 fL (80-98); Mean Platelet Volume 9.6 fL (9.4-12.3); Monocytes Absolute Auto 0.2 X10*3/uL (0.1-1.2); Monocytes Percent Auto 1.8 % (2-11); Neutrophils Absolute Auto 8.5 X10*3/uL (2.0-8.3); Neutrophils Percent Auto 86.4 % (45-73); Platelet Count 278 X10*3/uL (160-400); Red Blood Count 4.06 X10*6/uL (4.20-5.50); Red Cell Distribution Width 11.8 % (11.0-16.0); White Blood Count 9.8 X10*3/uL (4.8-10.8)
[2021-01-24] MEDS: ondansetron HCL 4 MG/2 ML VIAL IVPUSH (19:37)
[2021-01-24] MEDS: 0.9 % Sodium Chloride 1,000 ML 999 ML IVCONT (19:37)
[2021-01-24 20:00] VITALS: BP 117/68; PULSE 103; RESP 17; O2SAT 100
[2021-01-24 20:14] LABS: Alanine Aminotransferase 18 U/L (0-31); Albumin Level 4.5 g/dL (3.5-5.0); Alkaline Phosphatase 90 U/L (39-117); Anion Gap 14 (12-20); Aspartate Amino Transferase 14 U/L (5-31); Bilirubin Direct 0.4 mg/dL (0.0-0.5); Bilirubin Total 1.1 mg/dL (0.0-1.0); Blood Urea Nitrogen 12 mg/dL (9-16); Calcium 9.3 mg/dL (8.4-10.2); Carbon Dioxide 25 mmol/L (22-29); Chloride 104 mmol/L (96-108); Creatinine Clr Calc Pharmacy 96.1; Estimated Glomerular Filt Rate > 60; Glucose Random 89 mg/dL (60-115); Lipase 22 U/L (8-78); Sodium 139 mmol/L (135-145); Total Protein 7.5 g/dL (6.5-8.0)
[2021-01-24 20:38] LABS: COVID-19 Test Negative (Negative); IDNOW Serial# 9DD0AD1C
[2021-01-24 21:46] LABS: Glucose Urine UA NEG (NEG); Leukocyte Esterase Urine NEG (NEG); Nitrite Urine NEG (NEG); Urine Blood NEG (NEG); Urine Ketones 15 MG/DL (NEG); Urine Protein NEG (NEG-TRACE)
[2021-01-24 21:47] LABS: Appearance Urine CLEAR; Color Urine YELLOW
== END 2021-01-24 22:45 | disposition home or self-care (01) ==
PROVIDERS: Emergency Provider Internal Medicine; PCP Internal Medicine
DX: K52.9 Noninfective gastroenteritis and colitis, unspecified (principal); Z20.822 Contact with and (suspected) exposure to COVID-19
CPT/HCPCS: 36415; 71045; 80048; 80076; 81003; 83690; 85025; 87635; 96361; 96374; 99284; J2405

== ENCOUNTER 2021-07-29 02:42 | Emergency (ER) | payer SELFPAY ==
--- NOTE | ~2021-07-29 | US_ITS ---
EXAMINATION: Pelvic ultrasound CLINICAL INDICATION: Lower abdominal pain COMPARISON: Ultrasound pelvis 11/06/[address] abdomen pelvis 11/06/2020 TECHNIQUE: Transabdominal and endovaginal scanning was performed. FINDINGS: An anteverted uterus is present measuring 6.0 x 3.3 x 4.2 cm. Normal-appearing endometrium present measuring 0.3 cm. No gestational sac is seen. No fluid is present in the endometrial canal. The right ovary measures 3.0 x 1.1 x 1.4 cm and has a echogenic focus within it but otherwise appears normal. The left ovary measures 1.7 x 1.2 x 0.9 cm and appears unremarkable. There is trace fluid present in the cul-de-sac. Color flow Doppler imaging demonstrates both ovaries with normal arterial and venous flow. US/US OB pelvic and transvaginal IMPRESSION: No is seen. Recommend correlation with hCG and repeat ultrasound. Punctate echogenic focus present in the right ovary.
[2021-07-29 02:44] VITALS: BP 117/67; PULSE 81; RESP 20; TEMP 37; O2SAT 98; BMI 22.4
--- NOTE | 2021-07-29 02:56 | ED_ITS ---
HPI - Nausea/Vomiting/Diarrhea General Chief complaint: Nausea/Vomiting/Diarrhea Stated complaint: vomiting, fever Time Seen by Provider: 07/29/21 02:45 Source: patient Mode of arrival: ambulatory Limitations: no limitations History of Present Illness MD elicited complaint: nausea, vomiting and abdominal pain Onset (ago): day(s) (2) Description of vomiting: food contents and watery Associated nausea: Yes Associated abdominal pain: Yes Location of pain: diffuse Radiation: diffuse Pain consistency: constant Severity: moderate Quality: cramping Exacerbating factors: none Context: foreign travel (came back from [place] 7 days ago) Associated symptoms: loss of appetite, malaise and nausea/vomiting Related Data Home Medications Medication Instructions Recorded Confirmed multivitamin 1 tab PO DAILY 09/22/20 10/31/20 omeprazole 20 mg capsule,delayed 1 cap PO DAILY 10/31/20 10/31/20 release Previous Rx's Medication Instructions Recorded hydrocortisone acetate 25 mg 25 mg MD BEDTIME #12 ea 11/06/20 rectal suppository (Anusol-HC) hydrocortisone acetate 25 mg 25 mg MD BEDTIME PRN #12 ea 11/20/20 rectal suppository (Anusol-HC) hydrocortisone 2.5 % topical cream 1 appl MD DAILY PRN #30 g 11/26/20 with perineal applicator (Anusol-HC) ondansetron 4 mg disintegrating 4 mg PO Q6-8H PRN #15 tab 01/24/21 tablet metoclopramide HCl 10 mg tablet 10 mg PO Q6H PRN #20 tab 07/29/21 (Reglan) promethazine 25 mg rectal 25 mg MD Q6H PRN #12 ea 07/29/21 suppository Allergies Allergy/AdvReac Type Severity Reaction Status Date / Time strawberry [STRAWBERRY] Allergy Unknown RASH Verified 07/29/21 02:44 Review of Systems Review of Systems: Constitutional : No Weight loss, pos Fever, pos Chills ENT/Mouth : No sore throat, No Rhinorrhea Eyes: No Swelling, No Redness Cardiovascular : No Chest Pain, No SOB, NoEdema Respiratory : No Cough, No Sputum, No Wheezing Gastrointestinal : Positive Nausea, Positive Vomiting, no Diarrhea, positive abdominal Pain, No Hematochezia, No Melena, no constipation Genitourinary : No Dysuria, No Urinary Frequency, No Hematuria, No Urgency Musculoskeletal : No joint pain, No Myalgias, No Joint Swelling Skin : No Skin Lesions, No rash Neuro : No Weakness, No Numbness, No Dizziness, No Headache Psych : No Anxiety/Panic, No Depression Heme/Lymph: No Bruising, No Lymphadenopathy Endocrine : No Polyuria, No Polydipsia All other systems reviewed and are negative. Gastrointestinal: Gastrointestinal: Reports nausea PMFSH Past Medical History Attestation statement: The following information was validated with the patient. Medical History Hemorrhoids History of depression Hx of gastroenteritis Menopausal disorder Rectal bleeding Surgical History History of cholecystectomy Family History Family History Maternal Aunt Colon cancer Father No problems noted. 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 Oriented X3. No acute distress. Anxious Eyes: Pupils equal, round and reactive to light. ENT: Pharynx normal. Neck: Normal inspection. Neck supple. CVS: Normal heart rate and rhythm. Pulses normal. Respiratory: No respiratory distress. Breath sounds normal. Abdomen: Soft and mild diffuse ttp no rebound or guarding Skin: Skin warm and dry. Normal skin color. Normal skin turgor. Extremities: No lower extremity edema. No calf ttp Neuro: Oriented X 3. No motor deficit. No sensory deficit. Course Course Course Narrative: + UPT will add on quant and US - the patient is shocked states she thought she was in menopause US negative will refer to PCP to recheck levels of hcg in 3 days UA is contamined nausea has improved patient feels much better MDM - Nausea/Vomiting/Diarrhea MDM Narrative Medical decision making narrative: 40 yo female here with 2 days of diffuse abdominal pain n/v - no diarrhea did travel from [place] recently. She is vaccinated. At this time will need labs, IVF, IV pepcid/toradol/zofran. No localized ttp dispo per results and findings. Will reassss after labs possible CT scan to r/o appendicitis. Lab Data Result diagrams: 07/29/21 03:02 07/29/21 03:02 Labs: Lab Results 07/29/21 07/29/21 07/29/21 Range/Units 03:02 03:02 03:02 WBC 8.2 (4.8-10.8) X10*3/uL RBC 4.22 (4.20-5.50) X10*6/uL Hgb 12.6 (12.0-16.0) g/dl Hct 37.9 (37-47) % MCV 89.8 (80-98) fL MCH 29.9 (27.0-33.0) pg MCHC 33.2 (31.0-35.0) g/dl RDW 12.1 (11.0-16.0) % Plt Count 288 (160-400) X10*3/uL MPV 9.7 (9.4-12.3) fL Immature Gran % (Auto) 0.2 (0.0-0.4) % Neut % (Auto) 54.3 (45-73) % Lymph % (Auto) 37.3 (20-40) % [place] % (Auto) 5.5 (2-11) % Eos % (Auto) 2.2 (0-4) % Baso % (Auto) 0.5 (0-2) % Lymph # (Auto) 3.1 (1.2-4.9) X10*3/uL [place] # (Auto) 0.5 (0.1-1.2) X10*3/uL Eos # (Auto) 0.2 (0.0-0.4) X10*3/uL Baso # (Auto) 0.0 (0.0-0.2) X10*3/uL Abs Immat Gran (auto) 0.02 (0.00-0.03) X10*3/uL Absolute Neuts (auto) 4.5 (2.0-8.3) X10*3/uL Absolute Nucleated RBC 0.000 (0.0-0.012) X10*3/uL Nucleated RBC % (auto) 0.0 (0.0-0.2) /100WBC Sodium 137 (135-145) mmol/L Potassium 3.9 (3.3-5.1) mmol/L Chloride 104 (96-108) mmol/L Carbon Dioxide 23 (22-29) mmol/L Anion Gap 14 (12-20) BUN 11 (9-16) mg/dL Creatinine 0.75 (0.5-1.4) mg/dL Estim Creat Clear Calc 77.3 Estimated GFR > 60 Random Glucose 109 (60-115) mg/dL Calcium 9.8 (8.4-10.2) mg/dL Magnesium 2.1 (1.6-2.6) mg/dL Total Bilirubin 1.0 (0.0-1.0) mg/dL Direct Bilirubin 0.4 (0.0-0.5) mg/dL AST 15 (5-31) U/L ALT 13 (0-31) U/L Alkaline Phosphatase 74 (39-117) U/L Total Protein 7.3 (6.5-8.0) g/dL Albumin 4.5 (3.5-5.0) g/dL Lipase 26 (8-78) U/L Beta HCG, Quant 3 mIU/mL Urine Color Urine Appearance Urine pH (5.0-8.0) Ur Specific [place] (1.005-1.025) Urine Protein (NEG-TRACE) MG/DL Urine Glucose (UA) (NEG) MG/DL Urine Ketones (NEG) MG/DL Urine Blood (NEG) Urine Nitrite (NEG) Ur Leukocyte Esterase (NEG) Urine RBC (0) /HPF Urine WBC (0-4) /HPF Ur Squamous Epith Cells /LPF Calcium Oxalate Crystal /LPF Urine Bacteria /LPF Urine Mucus /LPF Urine Test (NEGATIVE) COVID-19 ([facility]) Negative (Negative) COVID-19 Clin Com See Note 07/29/21 07/29/21 Range/Units 04:01 04:01 WBC (4.8-10.8) X10*3/uL RBC (4.20-5.50) X10*6/uL Hgb (12.0-16.0) g/dl Hct (37-47) % MCV (80-98) fL MCH (27.0-33.0) pg MCHC (31.0-35.0) g/dl RDW (11.0-16.0) % Plt Count (160-400) X10*3/uL MPV (9.4-12.3) fL Immature Gran % (Auto) (0.0-0.4) % Neut % (Auto) (45-73) % Lymph % (Auto) (20-40) % [place] % (Auto) (2-11) % Eos % (Auto) (0-4) % Baso % (Auto) (0-2) % Lymph # (Auto) (1.2-4.9) X10*3/uL [place] # (Auto) (0.1-1.2) X10*3/uL Eos # (Auto) (0.0-0.4) X10*3/uL Baso # (Auto) (0.0-0.2) X10*3/uL Abs Immat Gran (auto) (0.00-0.03) X10*3/uL Absolute Neuts (auto) (2.0-8.3) X10*3/uL Absolute Nucleated RBC (0.0-0.012) X10*3/uL Nucleated RBC % (auto) (0.0-0.2) /100WBC Sodium (135-145) mmol/L Potassium (3.3-5.1) mmol/L Chloride (96-108) mmol/L Carbon Dioxide (22-29) mmol/L Anion Gap (12-20) BUN (9-16) mg/dL Creatinine (0.5-1.4) mg/dL Estim Creat Clear Calc Estimated GFR Random Glucose (60-115) mg/dL Calcium (8.4-10.2) mg/dL Magnesium (1.6-2.6) mg/dL Total Bilirubin (0.0-1.0) mg/dL Direct Bilirubin (0.0-0.5) mg/dL AST (5-31) U/L ALT (0-31) U/L Alkaline Phosphatase (39-117) U/L Total Protein (6.5-8.0) g/dL Albumin (3.5-5.0) g/dL Lipase (8-78) U/L Beta HCG, Quant mIU/mL Urine Color DARK YELLOW Urine Appearance CLEAR Urine pH 5.5 (5.0-8.0) Ur Specific [place] >= 1.030 H (1.005-1.025) Urine Protein TRACE (NEG-TRACE) MG/DL Urine Glucose (UA) NEG (NEG) MG/DL Urine Ketones 15 (NEG) MG/DL Urine Blood TRACE (NEG) Urine Nitrite NEG (NEG) Ur Leukocyte Esterase TRACE H (NEG) Urine RBC 1-4 (0) /HPF Urine WBC 5-9 H (0-4) /HPF Ur Squamous Epith Cells 1+ /LPF Calcium Oxalate Crystal 1+ /LPF Urine Bacteria 2+ /LPF Urine Mucus 2+ /LPF Urine Test POSITIVE H (NEGATIVE) COVID-19 ([facility]) (Negative) COVID-19 Clin Com Discharge Plan Discharge Clinical Impression: Vomiting, Abdominal pain, Elevated serum hCG Patient Disposition: Home, Self-Care Instructions: Acute Nausea and Vomiting (ED), Abdominal Pain (ED) Additional Instructions: return to ED for any worsening symptoms or concerns your ultrasound is negative it is unusual that your test and serum test were positive your doctor needs to repeat a blood hcg test in 2 days - the result today was 3 YOU CAN COME BACK TO THE ED WELL. use a suppository only if the oral is not working to treat your nausea IMPRESSION: No is seen. Recommend correlation with hCG and repeat ultrasound. Punctate echogenic focus present in the right ovary. Prescriptions: New promethazine 25 mg suppository 25 mg MD Q6H PRN (Reason: nausea and vomiting) Qty: 12 RF: 0 metoclopramide HCl [Reglan] 10 mg tablet 10 mg PO Q6H PRN (Reason: nausea and vomiting) Qty: 20 RF: 0 No Action hydrocortisone [Anusol-HC] 2.5 % cream with perineal applicator 1 appl MD DAILY PRN (Reason: hemorrhoids) Qty: 30 RF: 3 omeprazole 20 mg capsule,delayed release(DR/EC) 1 cap PO DAILY RF: 0 hydrocortisone acetate [Anusol-HC] 25 mg suppository 25 mg MD BEDTIME Qty: 12 RF: 0 ondansetron 4 mg tablet,disintegrating 4 mg PO Q6-8H PRN (Reason: Nausea And Vomiting) Qty: 15 RF: 0 multivitamin Tablet 1 tab PO DAILY RF: 0 hydrocortisone acetate [Anusol-HC] 25 mg suppository 25 mg MD BEDTIME PRN (Reason: hemorrhoids) Qty: 12 RF: 2 Referrals: Physician,Unknown [Primary Care Provider] - 3 days Stand Alone Forms: Work/School Release
[2021-07-29 03:06] LABS: MANUAL DIFF FLAG NO
[2021-07-29] MEDS: Ketorolac Tromethamine 15 MG/ML VIAL IVPUSH (03:06)
[2021-07-29] MEDS: 0.9 % Sodium Chloride 1,000 ML 999 ML IVCONT (03:06)
[2021-07-29] MEDS: Famotidine/PF 20 MG/2 ML VIAL IVPUSH (03:06)
[2021-07-29] MEDS: ondansetron HCL 4 MG/2 ML VIAL IVPUSH (03:06)
[2021-07-29 03:11] LABS: Basophils Percent Auto 0.5 % (0-2); Eosinophils Absolute Auto 0.2 X10*3/uL (0.0-0.4); Eosinophils Percent Auto 2.2 % (0-4); Hematocrit 37.9 % (37-47); Hemoglobin 12.6 g/dl (12.0-16.0); Imm Gran Abs Auto 0.02 X10*3/uL (0.00-0.03); Imm Gran Pct Auto 0.2 % (0.0-0.4); Lymphocytes Absolute Auto 3.1 X10*3/uL (1.2-4.9); Lymphocytes Percent Auto 37.3 % (20-40); Mean Corpuscular HGB Conc 33.2 g/dl (31.0-35.0); Mean Corpuscular Hemoglobin 29.9 pg (27.0-33.0); Mean Corpuscular Volume 89.8 fL (80-98); Mean Platelet Volume 9.7 fL (9.4-12.3); Monocytes Absolute Auto 0.5 X10*3/uL (0.1-1.2); Monocytes Percent Auto 5.5 % (2-11); Neutrophils Absolute Auto 4.5 X10*3/uL (2.0-8.3); Neutrophils Percent Auto 54.3 % (45-73); Platelet Count 288 X10*3/uL (160-400); Red Blood Count 4.22 X10*6/uL (4.20-5.50); Red Cell Distribution Width 12.1 % (11.0-16.0); White Blood Count 8.2 X10*3/uL (4.8-10.8)
[2021-07-29 03:38] LABS: Alanine Aminotransferase 13 U/L (0-31); Albumin Level 4.5 g/dL (3.5-5.0); Alkaline Phosphatase 74 U/L (39-117); Anion Gap 14 (12-20); Aspartate Amino Transferase 15 U/L (5-31); Bilirubin Direct 0.4 mg/dL (0.0-0.5); Blood Urea Nitrogen 11 mg/dL (9-16); Calcium 9.8 mg/dL (8.4-10.2); Carbon Dioxide 23 mmol/L (22-29); Chloride 104 mmol/L (96-108); Creatinine Clr Calc Pharmacy 77.3; Estimated Glomerular Filt Rate > 60; Glucose Random 109 mg/dL (60-115); Lipase 26 U/L (8-78); Magnesium 2.1 mg/dL (1.6-2.6); Potassium 3.9 mmol/L (3.3-5.1); Sodium 137 mmol/L (135-145); Total Protein 7.3 g/dL (6.5-8.0)
[2021-07-29 03:39] LABS: COVID-19 Test Negative (Negative); IDNOW Serial# 55D5AD1C
[2021-07-29 04:09] LABS: Glucose Urine UA NEG (NEG); Leukocyte Esterase Urine TRACE (NEG); Nitrite Urine NEG (NEG); PH 5.5 (5.0-8.0); Specific Gravity - Urine >= 1.030 (1.005-1.025); UACC Culture Trigger YES; Urine Blood TRACE (NEG); Urine Ketones 15 MG/DL (NEG); Urine Protein TRACE MG/DL (NEG-TRACE)
[2021-07-29 04:11] LABS: Appearance Urine CLEAR; Color Urine DARK YELLOW
[2021-07-29 04:14] LABS: UPreg QC Valid YES; Urine Pregnancy POSITIVE (NEGATIVE)
[2021-07-29 04:20] LABS: Bacteria Urine 2+ /LPF; Calcium Oxalate Crystals Urine 1+ /LPF; Mucus Urine 2+ /LPF; Squamous Epithelial Cell Urine 1+ /LPF
[2021-07-29] MEDS: diphenhydrAMINE HCL 50 MG/ML VIAL 25 MG IVPUSH (04:28)
[2021-07-29] MEDS: Metoclopramide HCl 10 MG/2 ML VIAL IVPUSH (04:29)
[2021-07-29 05:02] LABS: HCG Quantitative 3 mIU/mL
[2021-07-29 07:11] VITALS: BP 101/55; PULSE 67; RESP 16; TEMP 36.7; O2SAT 100
== END 2021-07-29 07:22 | disposition home or self-care (01) ==
PROVIDERS: Emergency Provider Emergency Medicine
DX: R11.2 Nausea with vomiting, unspecified (principal); R10.9 Unspecified abdominal pain; Z20.822 Contact with and (suspected) exposure to COVID-19; Z79.899 Other long term (current) drug therapy
CPT/HCPCS: 36415; 76801; 76817; 80048; 80076; 81001; 81025; 83690; 83735; 84702; 85025; 87086; 87635; 96361; 96374; 96375; 99285; J1200; J1885; J2405; J2765

== ENCOUNTER 2021-07-31 16:07 | Emergency (ER) | payer SELFPAY ==
[2021-07-31 16:26] VITALS: BP 117/77; PULSE 76; RESP 16; TEMP 36.8; O2SAT 98; BMI 22.3
[2021-07-31 18:31] LABS: HCG Quantitative 4 mIU/mL
--- NOTE | 2021-07-31 20:07 | ED_ITS ---
HPI - Recheck/Abnormal Lab/Rx General Chief Complaint: Recheck/Abnormal Lab/Rx Stated Complaint: blood test Time Seen by Provider: 07/31/21 20:07 Source: patient Mode of arrival: ambulatory Limitations: no limitations History of Present Illness HPI narrative: 40-year-old female with positive HCG without being presents for repeat hCG value. Symptoms since prior visit: no new symptoms Context: planned re-check Associated symptoms: none Related Data Home Medications Medication Instructions Recorded Confirmed multivitamin 1 tab PO DAILY 09/22/20 10/31/20 omeprazole 20 mg capsule,delayed 1 cap PO DAILY 10/31/20 10/31/20 release Previous Rx's Medication Instructions Recorded hydrocortisone acetate 25 mg 25 mg IA BEDTIME #12 ea 11/06/20 rectal suppository (Anusol-HC) hydrocortisone acetate 25 mg 25 mg IA BEDTIME PRN #12 ea 11/20/20 rectal suppository (Anusol-HC) hydrocortisone 2.5 % topical cream 1 appl IA DAILY PRN #30 g 11/26/20 with perineal applicator (Anusol-HC) ondansetron 4 mg disintegrating 4 mg PO Q6-8H PRN #15 tab 01/24/21 tablet metoclopramide HCl 10 mg tablet 10 mg PO Q6H PRN #20 tab 07/29/21 (Reglan) promethazine 25 mg rectal 25 mg IA Q6H PRN #12 ea 07/29/21 suppository Allergies Allergy/AdvReac Type Severity Reaction Status Date / Time strawberry [STRAWBERRY] Allergy Unknown RASH Verified 07/29/21 02:44 Review of Systems Review of Systems: Constitutional: No Fever, No Chills ENT/Mouth: No Ear Pain, No Hoarseness, No sore throat Eyes: No Eye Pain, No Swelling, No Redness, No Foreign Body Cardiovascular: No Chest Pain, No SOB Respiratory: No Cough, No Dyspnea Gastrointestinal: No Nausea, No Vomiting, No Diarrhea, No abdominal Pain Genitourinary: No Dysuria, No Hematuria Musculoskeletal: No joint pain, No Myalgias, No Joint Swelling Skin: No Skin lacerations, No rash Neuro: No Weakness, No Numbness, No Paresthesias, No Loss of Consciousness, No Dizziness, No Headache Psych: No Anxiety/Panic, No Depression Heme/Lymph: no easy bruising, no Lymphadenopathy Endocrine: No Polyuria, No Polydipsia Yes all other systems are reviewed and are negative [facility] Past Medical History Attestation statement: The following information was validated with the patient. Source: old records reviewed Medical History Hemorrhoids History of depression Hx of gastroenteritis Menopausal disorder Rectal bleeding Surgical History History of cholecystectomy Family History Family History Maternal Aunt Colon cancer Father No problems noted. 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 Oriented X3. No acute distress. Eyes: Pupils equal, round and reactive to light. ENT: Pharynx normal. Neck: Normal inspection. Neck supple. CVS: Normal heart rate and rhythm. Pulses normal. Respiratory: No respiratory distress. Breath sounds normal. Abdomen: Soft and nontender. Skin: Skin warm and dry. Normal skin color. Normal skin turgor. Extremities: No lower extremity edema. Neuro: No motor deficit. No sensory deficit. Course Course Course Narrative: 40-year-old female presents for repeat hCG testing. Repeat hCG level 4, patient with advised to follow up with Gynecology, as she does not have [address]. Patient verbalized understanding of and agrees to plan of care. MDM - Recheck/Abnormal Lab/Rx MDM Narrative Medical decision making narrative: Elevated hCG level Medical Records Attestation: I reviewed the patient's medical records. Lab Data Attestation: I reviewed the patient's lab results. Labs: Lab Results 07/31/21 Range/Units 17:41 Beta HCG, Quant 4 mIU/mL Discharge Plan Discharge Clinical Impression: Elevated serum human chorionic gonadotropin (hCG) level in female, not Patient Disposition: Home, Self-Care Additional Instructions: You were evaluated for a repeat hCG level. Your level is 4, which is 1 point higher than 3 days ago. You must follow-up with gynecology for further care. Please call Dr Hale for an evaluation. Thank you for choosing this emergency department for evaluation. Please follow-up with primary care physician as needed. Return to the emergency department for any new, concerning, or worsening symptoms. Prescriptions: No Action hydrocortisone [Anusol-HC] 2.5 % cream with perineal applicator 1 appl IA DAILY PRN (Reason: hemorrhoids) Qty: 30 RF: 3 promethazine 25 mg suppository 25 mg IA Q6H PRN (Reason: nausea and vomiting) Qty: 12 RF: 0 metoclopramide HCl [Reglan] 10 mg tablet 10 mg PO Q6H PRN (Reason: nausea and vomiting) Qty: 20 RF: 0 omeprazole 20 mg capsule,delayed release(DR/EC) 1 cap PO DAILY RF: 0 hydrocortisone acetate [Anusol-HC] 25 mg suppository 25 mg IA BEDTIME Qty: 12 RF: 0 ondansetron 4 mg tablet,disintegrating 4 mg PO Q6-8H PRN (Reason: Nausea And Vomiting) Qty: 15 RF: 0 multivitamin Tablet 1 tab PO DAILY RF: 0 hydrocortisone acetate [Anusol-HC] 25 mg suppository 25 mg IA BEDTIME PRN (Reason: hemorrhoids) Qty: 12 RF: 2 Referrals: Robert Hale MD [Physician] - 2 days (Elevated hCG level, not ) Interventions: ED Discharge Assessment Last Done: 07/31/21 20:23 Discharge Date/Time: 07/31/21 20:24
== END 2021-07-31 20:24 | disposition home or self-care (01) ==
PROVIDERS: Physician Assistant; Emergency Provider Emergency Medicine Emergency Medical Services; PCP Internal Medicine
DX: R79.89 Other specified abnormal findings of blood chemistry (principal); Z79.899 Other long term (current) drug therapy
CPT/HCPCS: 36415; 84702; 99283

== ENCOUNTER 2021-08-02 14:11 | Emergency (ER) | payer SELFPAY ==
[2021-08-02 14:16] VITALS: BP 152/70; PULSE 100; RESP 17; TEMP 36.8; O2SAT 100; BMI 22.3
--- NOTE | 2021-08-02 15:50 | PC.NURSE ---
Pt recently seen here last week, found to have the positive urine test. However, U/S r/o . Per pt, she has started menopause.
--- NOTE | 2021-08-02 16:33 | ECG_ITS ---
Test Reason : DIZZINESS Blood Pressure : / mmHG Vent. Rate : 067 BPM Atrial Rate : 067 BPM P-R Int : 142 ms QRS Dur : 070 ms QT Int : 392 ms P-R-T Axes : 019 059 040 degrees QTc Int : 414 ms Poor data quality, interpretation may be adversely affected Normal sinus rhythm Normal ECG When compared with ECG of 06-NOV-2020 17:53, No significant change was found Referred By: Clair Wiley Electronically Signed By:ARIEL CARDONA
--- NOTE | 2021-08-02 16:40 | ED_ITS ---
HPI - Dizziness General Chief Complaint: Dizziness Stated Complaint: dizziness, nausea Time Seen by Provider: 08/02/21 16:07 Source: patient Mode of arrival: ambulatory History of Present Illness HPI Narrative: 40-year-old female with a past medical history of hemorrhoids, depression, s/p cholecystectomy, positive test in our ED on 07/29/21, presenting to the ED complaining of lightheadedness, generalized fatigue since last night & persistent nausea/pelvic cramping since prior evaluation. Reports associated chest tightness with increased anxiety. Denies fever, chills, cough, SOB, headache, diarrhea, vaginal bleeding, vaginal discharge, dysuria/hematuria MD elicited complaint: lightheadedness Related Data Home Medications Medication Instructions Recorded Confirmed multivitamin 1 tab PO DAILY 09/22/20 10/31/20 omeprazole 20 mg capsule,delayed 1 cap PO DAILY 10/31/20 10/31/20 release Previous Rx's Medication Instructions Recorded hydrocortisone acetate 25 mg 25 mg AR BEDTIME #12 ea 11/06/20 rectal suppository (Anusol-HC) hydrocortisone acetate 25 mg 25 mg AR BEDTIME PRN #12 ea 11/20/20 rectal suppository (Anusol-HC) hydrocortisone 2.5 % topical cream 1 appl AR DAILY PRN #30 g 11/26/20 with perineal applicator (Anusol-HC) ondansetron 4 mg disintegrating 4 mg PO Q6-8H PRN #15 tab 01/24/21 tablet metoclopramide HCl 10 mg tablet 10 mg PO Q6H PRN #20 tab 07/29/21 (Reglan) promethazine 25 mg rectal 25 mg AR Q6H PRN #12 ea 07/29/21 suppository Allergies Allergy/AdvReac Type Severity Reaction Status Date / Time strawberry [STRAWBERRY] Allergy Unknown RASH Verified 08/02/21 14:16 Review of Systems Review of Systems: Constitutional: No Fever, No Chills, No Fatigue, No Malaise ENT/Mouth: No Ear Pain, No Nasal Congestion, No sore throat, No Rhinorrhea, No Swallowing Difficulty Eyes: No Eye Pain, No Swelling, No Vision Changes Cardiovascular: No Chest Pain, No SOB, No Dyspnea on Exertion, No Orthopnea, No Edema, No Palpitations Respiratory: No Cough, No Dyspnea Gastrointestinal: + Nausea, No Vomiting, No Diarrhea, No Constipation, + Abdominal pain, No Hematochezia, No Melena Genitourinary: No irregular bleeding, No Dysuria, No Urinary Frequency, No Hematuria, No Urinary Incontinence, No Urgency, No Flank Pain Musculoskeletal: No joint pain, No Myalgias, No Joint Swelling Skin: No Skin Lesions, No rash Neuro: No Weakness, No Numbness, No Loss of Consciousness, + lightheaded, No Headache Yes all other systems are reviewed and are negative Neurologic: Denies Abnormal speech present [facility] Past Medical History Attestation statement: The following information was validated with the patient. Medical History Hemorrhoids History of depression Hx of gastroenteritis Menopausal disorder Rectal bleeding Surgical History History of cholecystectomy Family History Family History Maternal Aunt Colon cancer Father No problems noted. 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 Physical Exam Vital Signs: Vital Signs: Last Vital Signs Temp 98.8 F 08/02/21 19:19 Pulse 77 08/02/21 19:37 Resp 18 08/02/21 19:19 BP 123/72 08/02/21 19:37 Pulse Ox 99 08/02/21 19:19 Body Mass Index 22.3 Const: General: cooperative, healthy appearing and no acute distress Orientation/consciousness: patient oriented x3 Limitations: no limitations HENMT: Head: Yes normal to inspection Ears: hearing grossly normal bilaterally General nose exam: Normal external nose present Face and sinus: Yes normal facial exam Eyes: General: appearance normal, both eyes and all related structures EOM: EOMs intact bilaterally Neck: Neck: Yes normal visual inspection and Yes no meningeal signs Resp: Effort & Inspection: normal respiratory effort Auscultation: clear to auscultation bilaterally, no rales, no rhonchi and no wheezes Cardio: Rate: regular rate Heart sounds: S1 normal heart sound present and S2 normal heart sound present GI: Inspection: Yes normal to inspection Palpation (GI): Soft to palpation, nontender, no guarding and not rigid Skin: Rashes: no rashes Wounds: no wounds Neuro: General: patient oriented x3, tone normal, moves all extremities, no meningeal signs, no focal motor deficits and CN's II-XI intact bilaterally Cranial nerves: Yes CN's II-XII intact bilaterally Cognition (Neuro): normal cognition Speech: No Abnormal speech present Gait exam (Neuro): Normal gait present Motor exam (neuro): 5/5 motor strength present throughout and Pronator motor function not present Coordination: [id number] test normal Romberg Test: Negative Extrem: General: Yes normal to inspection Course Course Course Narrative: -1817--no leukocytosis. H&H stable. Labs otherwise unremarkable. HCG today 3 which is not consistent with -1957--orthostatic vital signs negative -UA negative MDM - Dizziness MDM Narrative Medical decision making narrative: 40-year-old female with a past medical history of hemorrhoids, depression, s/p cholecystectomy, positive test in our ED on 07/29/21, presenting to the ED complaining of lightheadedness, generalized fatigue since last night & persistent nausea/pelvic cramping since prior evaluation. On exam VSS, NAD, nontoxic appearing, no focal neuro deficits, abdomen soft/nontender. Concern for dehydration, rule out anemia. Lower concern for ectopic/viable . Low concern for CVA/CVT. Low concern for appendicitis/diverticulitis without tenderness on exam From 07/29 which were unremarkable other than hCG 3, repeat on 07/31 was 4, this is not consistent with a viable . UA on 07/29 contaminated/infected, Cx grew lactobacillus species 10,000-50,000 >> will repeat UA today. Pelvic ultrasound on 07/29 did not see Plan: EKG, labs, UA, orthostatics, IVF, symptomatic treatment, reassess Medical Records Attestation: I reviewed the patient's medical records. Lab Data Attestation: I reviewed the patient's lab results. Result diagrams: 08/02/21 17:14 08/02/21 17:14 Labs: Lab Results 08/02/21 08/02/21 08/02/21 Range/Units 17:14 17:14 17:14 WBC 7.1 (4.8-10.8) X10*3/uL RBC 4.03 L (4.20-5.50) X10*6/uL Hgb 12.0 (12.0-16.0) g/dl Hct 36.0 L (37-47) % MCV 89.3 (80-98) fL MCH 29.8 (27.0-33.0) pg MCHC 33.3 (31.0-35.0) g/dl RDW 12.1 (11.0-16.0) % Plt Count 278 (160-400) X10*3/uL MPV 9.7 (9.4-12.3) fL Immature Gran % (Auto) 0.1 (0.0-0.4) % Neut % (Auto) 48.5 (45-73) % Lymph % (Auto) 41.3 H (20-40) % [place] % (Auto) 6.8 (2-11) % Eos % (Auto) 2.6 (0-4) % Baso % (Auto) 0.7 (0-2) % Lymph # (Auto) 2.9 (1.2-4.9) X10*3/uL [place] # (Auto) 0.5 (0.1-1.2) X10*3/uL Eos # (Auto) 0.2 (0.0-0.4) X10*3/uL Baso # (Auto) 0.1 (0.0-0.2) X10*3/uL Abs Immat Gran (auto) 0.01 (0.00-0.03) X10*3/uL Absolute Neuts (auto) 3.4 (2.0-8.3) X10*3/uL Absolute Nucleated RBC 0.000 (0.0-0.012) X10*3/uL Nucleated RBC % (auto) 0.0 (0.0-0.2) /100WBC Sodium 140 (135-145) mmol/L Potassium 4.0 (3.3-5.1) mmol/L Chloride 107 (96-108) mmol/L Carbon Dioxide 25 (22-29) mmol/L Anion Gap 12 (12-20) BUN 11 (9-16) mg/dL Creatinine 0.70 (0.5-1.4) mg/dL Estim Creat Clear Calc 82.8 Estimated GFR > 60 Random Glucose 92 (60-115) mg/dL Calcium 10.3 H (8.4-10.2) mg/dL Magnesium 2.0 (1.6-2.6) mg/dL Total Bilirubin 0.8 (0.0-1.0) mg/dL Direct Bilirubin 0.3 (0.0-0.5) mg/dL AST 12 (5-31) U/L ALT 16 (0-31) U/L Alkaline Phosphatase 71 (39-117) U/L Troponin I High Sens < 3.5 (<3.5-17.0) ng/L Total Protein 7.3 (6.5-8.0) g/dL Albumin 4.5 (3.5-5.0) g/dL Lipase 26 (8-78) U/L Beta HCG, Quant 3 mIU/mL Urine Color Urine Appearance Urine pH (5.0-8.0) Ur Specific [place] (1.005-1.025) Urine Protein (NEG-TRACE) MG/DL Urine Glucose (UA) (NEG) MG/DL Urine Ketones (NEG) MG/DL Urine Blood (NEG) Urine Nitrite (NEG) Ur Leukocyte Esterase (NEG) Urine RBC (0) /HPF Urine WBC (0-4) /HPF Ur Squamous Epith Cells /LPF Urine Bacteria /LPF 08/02/21 Range/Units 19:33 WBC (4.8-10.8) X10*3/uL RBC (4.20-5.50) X10*6/uL Hgb (12.0-16.0) g/dl Hct (37-47) % MCV (80-98) fL MCH (27.0-33.0) pg MCHC (31.0-35.0) g/dl RDW (11.0-16.0) % Plt Count (160-400) X10*3/uL MPV (9.4-12.3) fL Immature Gran % (Auto) (0.0-0.4) % Neut % (Auto) (45-73) % Lymph % (Auto) (20-40) % [place] % (Auto) (2-11) % Eos % (Auto) (0-4) % Baso % (Auto) (0-2) % Lymph # (Auto) (1.2-4.9) X10*3/uL [place] # (Auto) (0.1-1.2) X10*3/uL Eos # (Auto) (0.0-0.4) X10*3/uL Baso # (Auto) (0.0-0.2) X10*3/uL Abs Immat Gran (auto) (0.00-0.03) X10*3/uL Absolute Neuts (auto) (2.0-8.3) X10*3/uL Absolute Nucleated RBC (0.0-0.012) X10*3/uL Nucleated RBC % (auto) (0.0-0.2) /100WBC Sodium (135-145) mmol/L Potassium (3.3-5.1) mmol/L Chloride (96-108) mmol/L Carbon Dioxide (22-29) mmol/L Anion Gap (12-20) BUN (9-16) mg/dL Creatinine (0.5-1.4) mg/dL Estim Creat Clear Calc Estimated GFR Random Glucose (60-115) mg/dL Calcium (8.4-10.2) mg/dL Magnesium (1.6-2.6) mg/dL Total Bilirubin (0.0-1.0) mg/dL Direct Bilirubin (0.0-0.5) mg/dL AST (5-31) U/L ALT (0-31) U/L Alkaline Phosphatase (39-117) U/L Troponin I High Sens (<3.5-17.0) ng/L Total Protein (6.5-8.0) g/dL Albumin (3.5-5.0) g/dL Lipase (8-78) U/L Beta HCG, Quant mIU/mL Urine Color STRAW Urine Appearance CLEAR Urine pH 6.5 (5.0-8.0) Ur Specific [place] 1.015 (1.005-1.025) Urine Protein NEG (NEG-TRACE) MG/DL Urine Glucose (UA) NEG (NEG) MG/DL Urine Ketones NEG (NEG) MG/DL Urine Blood NEG (NEG) Urine Nitrite NEG (NEG) Ur Leukocyte Esterase 1+ H (NEG) Urine RBC 0 (0) /HPF Urine WBC 1-4 (0-4) /HPF Ur Squamous Epith Cells 1+ /LPF Urine Bacteria TRACE /LPF Discharge Plan Discharge Clinical Impression: Lightheadedness Patient Disposition: Home, Self-Care Instructions: Lightheadedness (ED) Additional Instructions: Your blood work is reassuring today in the ED You are hCG is again 3, this is not consistent with viable , however this should be monitored until the level becomes undetectable, you need to follow-up with OBGYN in 2-3 days for repeat labs/evaluation If her symptoms persist or worsen, constant worsening abdominal pain, developed vaginal bleeding/discharge, please return to the ED immediately Prescriptions: No Action hydrocortisone [Anusol-HC] 2.5 % cream with perineal applicator 1 appl AR DAILY PRN (Reason: hemorrhoids) Qty: 30 RF: 3 promethazine 25 mg suppository 25 mg AR Q6H PRN (Reason: nausea and vomiting) Qty: 12 RF: 0 metoclopramide HCl [Reglan] 10 mg tablet 10 mg PO Q6H PRN (Reason: nausea and vomiting) Qty: 20 RF: 0 omeprazole 20 mg capsule,delayed release(DR/EC) 1 cap PO DAILY RF: 0 hydrocortisone acetate [Anusol-HC] 25 mg suppository 25 mg AR BEDTIME Qty: 12 RF: 0 ondansetron 4 mg tablet,disintegrating 4 mg PO Q6-8H PRN (Reason: Nausea And Vomiting) Qty: 15 RF: 0 multivitamin Tablet 1 tab PO DAILY RF: 0 hydrocortisone acetate [Anusol-HC] 25 mg suppository 25 mg AR BEDTIME PRN (Reason: hemorrhoids) Qty: 12 RF: 2 Referrals: Robert Hale MD [Physician] - 2 days
[2021-08-02] MEDS: Meclizine HCl 25 MG TABLET PO (17:12)
[2021-08-02] MEDS: Metoclopramide HCl 10 MG/2 ML VIAL IVPUSH (17:12)
[2021-08-02] MEDS: diphenhydrAMINE HCL 50 MG/ML VIAL 25 MG IVPUSH (17:12)
[2021-08-02 17:17] LABS: MANUAL DIFF FLAG NO
[2021-08-02] MEDS: 0.9 % Sodium Chloride 1,000 ML 999 ML IVCONT (17:19)
[2021-08-02 17:23] LABS: Basophils Absolute Auto 0.1 X10*3/uL (0.0-0.2); Basophils Percent Auto 0.7 % (0-2); Eosinophils Absolute Auto 0.2 X10*3/uL (0.0-0.4); Eosinophils Percent Auto 2.6 % (0-4); Imm Gran Abs Auto 0.01 X10*3/uL (0.00-0.03); Imm Gran Pct Auto 0.1 % (0.0-0.4); Lymphocytes Absolute Auto 2.9 X10*3/uL (1.2-4.9); Lymphocytes Percent Auto 41.3 % (20-40); Mean Corpuscular HGB Conc 33.3 g/dl (31.0-35.0); Mean Corpuscular Hemoglobin 29.8 pg (27.0-33.0); Mean Corpuscular Volume 89.3 fL (80-98); Mean Platelet Volume 9.7 fL (9.4-12.3); Monocytes Absolute Auto 0.5 X10*3/uL (0.1-1.2); Monocytes Percent Auto 6.8 % (2-11); Neutrophils Absolute Auto 3.4 X10*3/uL (2.0-8.3); Neutrophils Percent Auto 48.5 % (45-73); Platelet Count 278 X10*3/uL (160-400); Red Blood Count 4.03 X10*6/uL (4.20-5.50); Red Cell Distribution Width 12.1 % (11.0-16.0); White Blood Count 7.1 X10*3/uL (4.8-10.8)
[2021-08-02 17:38] LABS: Troponin-I High Sensitivity < 3.5 ng/L (<3.5-17.0)
[2021-08-02 17:39] LABS: Alanine Aminotransferase 16 U/L (0-31); Albumin Level 4.5 g/dL (3.5-5.0); Alkaline Phosphatase 71 U/L (39-117); Anion Gap 12 (12-20); Aspartate Amino Transferase 12 U/L (5-31); Bilirubin Direct 0.3 mg/dL (0.0-0.5); Bilirubin Total 0.8 mg/dL (0.0-1.0); Blood Urea Nitrogen 11 mg/dL (9-16); Calcium 10.3 mg/dL (8.4-10.2); Chloride 107 mmol/L (96-108); Creatinine Clr Calc Pharmacy 82.8; Estimated Glomerular Filt Rate > 60; Glucose Random 92 mg/dL (60-115); Lipase 26 U/L (8-78); Sodium 140 mmol/L (135-145); Total Protein 7.3 g/dL (6.5-8.0)
[2021-08-02 17:40] LABS: Carbon Dioxide 25 mmol/L (22-29)
[2021-08-02 17:49] LABS: HCG Quantitative 3 mIU/mL
[2021-08-02 19:19] VITALS: BP 111/71; PULSE 81; RESP 18; TEMP 37.1; O2SAT 99
[2021-08-02 19:33] VITALS: BP 110/70; PULSE 81
[2021-08-02 19:36] VITALS: BP 113/63; PULSE 70
[2021-08-02 19:37] VITALS: BP 123/72; PULSE 77
[2021-08-02 19:48] LABS: Appearance Urine CLEAR; Color Urine STRAW; Glucose Urine UA NEG (NEG); Leukocyte Esterase Urine 1+ (NEG); Nitrite Urine NEG (NEG); PH 6.5 (5.0-8.0); Specific Gravity - Urine 1.015 (1.005-1.025); UACC Culture Trigger YES; Urine Blood NEG (NEG); Urine Ketones NEG (NEG); Urine Protein NEG (NEG-TRACE)
[2021-08-02 19:58] LABS: Bacteria Urine TRACE /LPF; RBC Urine 0 /HPF (0); Squamous Epithelial Cell Urine 1+ /LPF
== END 2021-08-02 21:00 | disposition home or self-care (01) ==
PROVIDERS: Physician Assistant; Emergency Provider Emergency Medicine; PCP Internal Medicine
DX: R42 Dizziness and giddiness (principal); F33.1 Major depressive disorder, recurrent, moderate; Z79.899 Other long term (current) drug therapy
CPT/HCPCS: 36415; 80048; 80076; 81001; 83690; 83735; 84484; 84702; 85025; 87086; 93005; 96365; 96374; 99284; J1200; J2765

== ENCOUNTER 2022-02-21 19:58 | Emergency (ER) | payer BC, SELFPAY ==
--- NOTE | ~2022-02-21 | CT_ITS ---
CT/CT lumbar spine wo con IMPRESSION: Unremarkable examination. EXAMINATION: CT LUMBAR SPINE WITHOUT CONTRAST CLINICAL INFORMATION: Pain and point tenderness, L4-L5. COMPARISON: None TECHNIQUE: CT imaging of the lumbar spine performed without intravenous contrast. Coronal and sagittal reformats are reviewed. This CT examination was performed using dose optimization techniques as appropriate, variously including the following: *Automated exposure control *Adjustment of mA and/or kV according to patient size (this includes techniques or standardized protocols for targeted exams where dose is matched to indication/reason for exam; i.e. extremities or head) *Use of iterative reconstruction technique DLP; 369 mGy-cm FINDINGS: No acute fracture or traumatic malalignment. Vertebral body heights maintained. Disc space heights preserved. No significant degenerative changes. No obvious foraminal narrowing or central canal stenosis. Paraspinal soft tissues unremarkable. Imaged viscera demonstrates previous cholecystectomy, but is otherwise unremarkable.
[2022-02-21 20:49] VITALS: BP 107/62; PULSE 79; RESP 14; TEMP 36.9; O2SAT 98; BMI 23.6
[2022-02-21 21:25] LABS: MANUAL DIFF FLAG NO
[2022-02-21 21:31] LABS: Basophils Absolute Auto 0.1 X10*3/uL (0.0-0.2); Basophils Percent Auto 0.8 % (0-2); Eosinophils Absolute Auto 0.3 X10*3/uL (0.0-0.4); Hematocrit 37.4 % (37.0-47.0); Imm Gran Abs Auto 0.02 X10*3/uL (0.00-0.03); Imm Gran Pct Auto 0.3 % (0.0-0.4); Lymphocytes Absolute Auto 3.2 X10*3/uL (1.2-4.9); Lymphocytes Percent Auto 40.1 % (20-40); Mean Corpuscular HGB Conc 32.1 g/dl (31.0-35.0); Mean Corpuscular Hemoglobin 29.5 pg (27.0-33.0); Mean Corpuscular Volume 91.9 fL (80.0-98.0); Mean Platelet Volume 9.7 fL (9.4-12.3); Monocytes Absolute Auto 0.5 X10*3/uL (0.1-1.2); Monocytes Percent Auto 5.6 % (2-11); Neutrophils Absolute Auto 3.9 x10*3/uL (2.0-8.3); Neutrophils Percent Auto 49.2 % (45-73); Platelet Count 293 X10*3/uL (160-400); Red Blood Count 4.07 X10*6/uL (4.20-5.50); Red Cell Distribution Width 12.2 % (11.0-16.0)
[2022-02-21 21:40] LABS: Anion Gap 10 (12-20); Blood Urea Nitrogen 16 mg/dL (9-16); Carbon Dioxide 30 mmol/L (22-29); Chloride 105 mmol/L (96-108); Creatinine Clr Calc Pharmacy 72.6; Estimated Glomerular Filt Rate > 60; Glucose Random 82 mg/dL (60-115); Potassium 4.5 mmol/L (3.3-5.1); Sodium 140 mmol/L (135-145)
[2022-02-21 22:07] LABS: Appearance Urine CLEAR; Color Urine YELLOW; Glucose Urine UA NEG (NEG); Leukocyte Esterase Urine 1+ (NEG); Nitrite Urine NEG (NEG); PH 6.5 (5.0-8.0); UACC Culture Trigger YES; Urine Blood NEG (NEG); Urine Ketones NEG (NEG); Urine Protein NEG (NEG-TRACE)
[2022-02-21 22:22] LABS: Urine Pregnancy NEGATIVE (NEGATIVE)
[2022-02-21 22:23] LABS: UPreg QC Valid YES
[2022-02-21 22:53] LABS: Bacteria Urine 1+ /LPF; Squamous Epithelial Cell Urine TRACE /LPF
[2022-02-22] MEDS: Acetaminophen 325 MG TABLET 975 MG PO (00:34)
[2022-02-22] MEDS: Ketorolac Tromethamine 15 MG/ML VIAL IM (00:34)
[2022-02-22 00:45] LABS: Alanine Aminotransferase 14 U/L (0-31); Albumin Level 4.6 g/dL (3.5-5.0); Alkaline Phosphatase 78 U/L (39-117); Aspartate Amino Transferase 14 U/L (5-31); Bilirubin Direct 0.2 mg/dL (0.0-0.5); Bilirubin Total 0.6 mg/dL (0.0-1.0); Lipase 48 U/L (8-78); Total Protein 7.7 g/dL (6.5-8.0)
--- NOTE | 2022-02-22 01:03 | ED.FEMALEGU ---
HPI - Female Genitourinary General Chief complaint: Urogenital-Female Stated complaint: lower back pain Time Seen by Provider: 02/22/22 00:24 Source: patient Mode of arrival: ambulatory History of Present Illness HPI Narrative: 41-year-old female without significant past medical history presents with reported mid vertebral tenderness that has worsened over the past week and has not been associated with fever, chills, nausea, vomiting and she denies any history of IV drug use or recent procedures. Patient also reports full body pain and denies that any of the back pain radiates into either lower extremity, there is no numbness in the groin area, and patient denies any bowel or bladder incontinence. On review of the triage note patient reports blood on bowel movement with known hemorrhoids. Patient denies any vehicular accidents, falls, physical assault,. Related Data Home Medications Medication Instructions Recorded Confirmed multivitamin 1 tab PO DAILY 09/22/20 10/31/20 omeprazole 20 mg capsule,delayed 1 cap PO DAILY 10/31/20 10/31/20 release Previous Rx's Medication Instructions Recorded hydrocortisone acetate 25 mg 25 mg VA BEDTIME #12 ea 11/06/20 rectal suppository (Anusol-HC) hydrocortisone acetate 25 mg 25 mg VA BEDTIME PRN #12 ea 11/20/20 rectal suppository (Anusol-HC) hydrocortisone 2.5 % topical cream 1 appl VA DAILY PRN #30 g 11/26/20 with perineal applicator (Anusol-HC) ondansetron 4 mg disintegrating 4 mg PO Q6-8H PRN #15 tab 01/24/21 tablet metoclopramide HCl 10 mg tablet 10 mg PO Q6H PRN #20 tab 07/29/21 (Reglan) promethazine 25 mg rectal 25 mg VA Q6H PRN #12 ea 07/29/21 suppository cyclobenzaprine 5 mg tablet 5 mg PO BEDTIME PRN #4 tab 02/22/22 ketorolac 10 mg tablet 10 mg PO Q6H PRN 5 Days #20 tab 02/22/22 Allergies Allergy/AdvReac Type Severity Reaction Status Date / Time strawberry [STRAWBERRY] Allergy Unknown RASH Verified 08/02/21 14:16 Review of Systems Review of Systems: Pertinent positives and negatives as stated in HPI 10 point review of systems is otherwise negative. PMFSH Past Medical History Source: nursing notes reviewed Medical History Hemorrhoids History of depression Hx of gastroenteritis Menopausal disorder Rectal bleeding Surgical History History of cholecystectomy Family History Family History Maternal Aunt Colon cancer Father No problems noted. 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 GENERAL: Well developed, well nourished, in no acute distress. HEAD: Normocephalic/atraumatic, EYES: PERRLA, EOMI intact without pain, no nystagmus/pallor/icterus noted EARS: Ext canals without abnormality, TMs non-bulging and non-erythematous NOSE: Nares patent bilateral OROPHARYNX: no oral lesions noted, posterior pharynx clear and non-erythematous without noted tonsillar enlargement/erythema/exudates NECK: Supple, no adenopathy LUNGS: Normal breath sounds. No adventitious sounds or accessory muscle use. SpO2<98> CARDIOVASCULAR: Regular rate and rhythm without noted murmurs, no JVD or lower extremity edema. ABDOMEN: Soft, non-tender, non-distended with bowel sounds, no CVA tenderness. BACK: Mid vertebral tenderness without step-off at approximate L3/L4 without erythema/induration MUSCULOSKELETAL: No tenderness, deformities, or effusions noted on gross inspection. EXTREMITIES: No cyanosis, clubbing or edema. SKIN: Inspection of the skin reveals no rashes NEUROLOGIC: Alert and oriented x 4. Strength and sensation to light touch were grossly intact x 4. Course Course Course Narrative: 41-year-old female with history and presentation of mid L vertebral tenderness, atraumatic in nature no history to suggest infection will evaluate for inflammatory markers but on review of all investigations there are no acute findings to better explain patient's presentation. No clinical suspicion for cauda equina and low clinical suspicion for spinal abscess, but given patient is menopausal at the age of 41 there is a less likely possibility of compression fracture. Patient given combination analgesics to include lidocaine patch and will pursue inflammatory markers-ESR/CRP. Review of all investigations negative for acute findings and on re-evaluation after patient received combination analgesics as well as lidocaine patch and muscle relaxant she reports that she has had improvement of her symptoms. She is otherwise stable for discharge home. MDM - Female Genitourinary Lab Data Result diagrams: 02/21/22 21:16 02/21/22 21:16 Labs: Lab Results 02/21/22 02/21/22 02/21/22 Range/Units 21:16 21:16 21:16 WBC 8.0 (4.8-10.8) X10*3/uL RBC 4.07 L (4.20-5.50) X10*6/uL Hgb 12.0 (12.0-16.0) g/dl Hct 37.4 (37.0-47.0) % MCV 91.9 (80.0-98.0) fL MCH 29.5 (27.0-33.0) pg MCHC 32.1 (31.0-35.0) g/dl RDW 12.2 (11.0-16.0) % Plt Count 293 (160-400) X10*3/uL MPV 9.7 (9.4-12.3) fL Immature Gran % (Auto) 0.3 (0.0-0.4) % Neut % (Auto) 49.2 (45-73) % Lymph % (Auto) 40.1 H (20-40) % [place] % (Auto) 5.6 (2-11) % Eos % (Auto) 4.0 (0-4) % Baso % (Auto) 0.8 (0-2) % Lymph # (Auto) 3.2 (1.2-4.9) X10*3/uL [place] # (Auto) 0.5 (0.1-1.2) X10*3/uL Eos # (Auto) 0.3 (0.0-0.4) X10*3/uL Baso # (Auto) 0.1 (0.0-0.2) X10*3/uL Abs Immat Gran (auto) 0.02 (0.00-0.03) X10*3/uL Absolute Neuts (auto) 3.9 (2.0-8.3) x10*3/uL Absolute Nucleated RBC 0.000 (0.0-0.012) X10*3/uL Nucleated RBC % (auto) 0.0 (0.0-0.2) /100WBC ESR (0-20) MM/HR Sodium 140 (135-145) mmol/L Potassium 4.5 (3.3-5.1) mmol/L Chloride 105 (96-108) mmol/L Carbon Dioxide 30 H (22-29) mmol/L Anion Gap 10 L (12-20) BUN 16 (9-16) mg/dL Creatinine 0.79 (0.5-1.4) mg/dL Estim Creat Clear Calc 72.6 Estimated GFR > 60 Random Glucose 82 (60-115) mg/dL Calcium 10.0 (8.4-10.2) mg/dL Total Bilirubin 0.6 (0.0-1.0) mg/dL Direct Bilirubin 0.2 (0.0-0.5) mg/dL AST 14 (5-31) U/L ALT 14 (0-31) U/L Alkaline Phosphatase 78 (39-117) U/L C-Reactive Protein 0.03 (< or = 0.50) mg/dL Total Protein 7.7 (6.5-8.0) g/dL Albumin 4.6 (3.5-5.0) g/dL Lipase 48 (8-78) U/L Urine Color YELLOW Urine Appearance CLEAR Urine pH 6.5 (5.0-8.0) Ur Specific [place] 1.010 (1.005-1.025) Urine Protein NEG (NEG-TRACE) MG/DL Urine Glucose (UA) NEG (NEG) MG/DL Urine Ketones NEG (NEG) MG/DL Urine Blood NEG (NEG) Urine Nitrite NEG (NEG) Ur Leukocyte Esterase 1+ H (NEG) Urine RBC 1-4 (0) /HPF Urine WBC 1-4 (0-4) /HPF Ur Squamous Epith Cells TRACE /LPF Urine Bacteria 1+ /LPF Urine Test (NEGATIVE) 02/21/22 02/21/22 Range/Units 21:16 21:16 WBC (4.8-10.8) X10*3/uL RBC (4.20-5.50) X10*6/uL Hgb (12.0-16.0) g/dl Hct (37.0-47.0) % MCV (80.0-98.0) fL MCH (27.0-33.0) pg MCHC (31.0-35.0) g/dl RDW (11.0-16.0) % Plt Count (160-400) X10*3/uL MPV (9.4-12.3) fL Immature Gran % (Auto) (0.0-0.4) % Neut % (Auto) (45-73) % Lymph % (Auto) (20-40) % [place] % (Auto) (2-11) % Eos % (Auto) (0-4) % Baso % (Auto) (0-2) % Lymph # (Auto) (1.2-4.9) X10*3/uL [place] # (Auto) (0.1-1.2) X10*3/uL Eos # (Auto) (0.0-0.4) X10*3/uL Baso # (Auto) (0.0-0.2) X10*3/uL Abs Immat Gran (auto) (0.00-0.03) X10*3/uL Absolute Neuts (auto) (2.0-8.3) x10*3/uL Absolute Nucleated RBC (0.0-0.012) X10*3/uL Nucleated RBC % (auto) (0.0-0.2) /100WBC ESR 13 (0-20) MM/HR Sodium (135-145) mmol/L Potassium (3.3-5.1) mmol/L Chloride (96-108) mmol/L Carbon Dioxide (22-29) mmol/L Anion Gap (12-20) BUN (9-16) mg/dL Creatinine (0.5-1.4) mg/dL Estim Creat Clear Calc Estimated GFR Random Glucose (60-115) mg/dL Calcium (8.4-10.2) mg/dL Total Bilirubin (0.0-1.0) mg/dL Direct Bilirubin (0.0-0.5) mg/dL AST (5-31) U/L ALT (0-31) U/L Alkaline Phosphatase (39-117) U/L C-Reactive Protein (< or = 0.50) mg/dL Total Protein (6.5-8.0) g/dL Albumin (3.5-5.0) g/dL Lipase (8-78) U/L Urine Color Urine Appearance Urine pH (5.0-8.0) Ur Specific [place] (1.005-1.025) Urine Protein (NEG-TRACE) MG/DL Urine Glucose (UA) (NEG) MG/DL Urine Ketones (NEG) MG/DL Urine Blood (NEG) Urine Nitrite (NEG) Ur Leukocyte Esterase (NEG) Urine RBC (0) /HPF Urine WBC (0-4) /HPF Ur Squamous Epith Cells /LPF Urine Bacteria /LPF Urine Test NEGATIVE (NEGATIVE) Discharge Plan Discharge Clinical Impression: Acute exacerbation of chronic low back pain, Rectal bleeding, Hemorrhoids Patient Disposition: Home, Self-Care Instructions: Hemorrhoids (ED), Rectal Bleeding (ED), Back Pain (ED), Lower Back Exercises (ED) Additional Instructions: 1. Tylenol 1000 mg, orally, every 6 hours as needed for pain control. Do not exceed 4000 mg within 24 hours. 2. Lidocaine patch, apply to area of maximal tenderness as directed on the outside packaging. 3. Apply ice to unexposed skin, 10-15 minutes, 2 to 3 times a day. 4. Follow-up with Gastroenterology for your hemorrhoids and rectal bleeding that you are experiencing. 5. Follow-up with your primary care provider for re-evaluation and further outpatient management. Return to the ER for worsening symptoms. Prescriptions: New ketorolac 10 mg tablet 10 mg PO Q6H PRN (Reason: pain) 5 Days Qty: 20 0RF Rx Instructions: Patient received Toradol in the emergency room. cyclobenzaprine 5 mg tablet 5 mg PO BEDTIME PRN (Reason: muscle spasm) Qty: 4 0RF No Action hydrocortisone [Anusol-HC] 2.5 % cream with perineal applicator 1 appl VA DAILY PRN (Reason: hemorrhoids) Qty: 30 3RF promethazine 25 mg suppository 25 mg VA Q6H PRN (Reason: nausea and vomiting) Qty: 12 0RF metoclopramide HCl [Reglan] 10 mg tablet 10 mg PO Q6H PRN (Reason: nausea and vomiting) Qty: 20 0RF omeprazole 20 mg capsule,delayed release(DR/EC) 1 cap PO DAILY 0RF hydrocortisone acetate [Anusol-HC] 25 mg suppository 25 mg VA BEDTIME Qty: 12 0RF ondansetron 4 mg tablet,disintegrating 4 mg PO Q6-8H PRN (Reason: Nausea And Vomiting) Qty: 15 0RF multivitamin Tablet 1 tab PO DAILY 0RF hydrocortisone acetate [Anusol-HC] 25 mg suppository 25 mg VA BEDTIME PRN (Reason: hemorrhoids) Qty: 12 2RF Referrals: Cira Rouse MD [Primary Care Provider] - 2 days
[2022-02-22 01:30] LABS: C Reactive Protein 0.03 mg/dL (< or = 0.50)
[2022-02-22] MEDS: Lidocaine 4 % Patch ADH..PATCH 1 PATCH TRANSDERMA (01:35)
[2022-02-22 01:56] LABS: Erythrocyte Sedimentation Rate 13 MM/HR (0-20)
[2022-02-22] MEDS: Cyclobenzaprine HCl 5 MG TABLET PO (03:44)
== END 2022-02-22 03:51 | disposition home or self-care (01) ==
PROVIDERS: Emergency Provider Student in an Organized Health Care Education/Training Program; PCP Internal Medicine
DX: G89.29 Other chronic pain (principal); M54.50 Low back pain, unspecified; K62.5 Hemorrhage of anus and rectum; K64.9 Unspecified hemorrhoids
CPT/HCPCS: 36415; 72131; 80048; 80076; 81001; 81003; 81025; 83690; 85025; 85652; 86140; 87086; 96372; 99284; J1885

== ENCOUNTER 2022-06-08 08:01 | Outpatient (REF) | payer BC, SELFPAY ==
[2022-06-08 08:15] LABS: MANUAL DIFF FLAG NO
[2022-06-08 08:18] LABS: Basophils Absolute Auto 0.1 X10*3/uL (0.0-0.2); Basophils Percent Auto 0.8 % (0-2); Eosinophils Absolute Auto 0.3 X10*3/uL (0.0-0.4); Eosinophils Percent Auto 4.9 % (0-4); Hematocrit 34.2 % (37.0-47.0); Hemoglobin 10.8 g/dl (12.0-16.0); Imm Gran Abs Auto 0.01 X10*3/uL (0.00-0.03); Imm Gran Pct Auto 0.2 % (0.0-0.4); Lymphocytes Absolute Auto 2.6 X10*3/uL (1.2-4.9); Lymphocytes Percent Auto 41.8 % (20-40); Mean Corpuscular HGB Conc 31.6 g/dl (31.0-35.0); Mean Corpuscular Hemoglobin 28.8 pg (27.0-33.0); Mean Corpuscular Volume 91.2 fL (80.0-98.0); Mean Platelet Volume 8.9 fL (9.4-12.3); Monocytes Absolute Auto 0.6 X10*3/uL (0.1-1.2); Monocytes Percent Auto 9.5 % (2-11); Neutrophils Absolute Auto 2.7 x10*3/uL (2.0-8.3); Neutrophils Percent Auto 42.8 % (45-73); Platelet Count 243 X10*3/uL (160-400); Red Blood Count 3.75 X10*6/uL (4.20-5.50); Red Cell Distribution Width 12.1 % (11.0-16.0); White Blood Count 6.3 X10*3/uL (4.8-10.8)
[2022-06-08 08:45] LABS: Alanine Aminotransferase 37 U/L (0-31); Albumin Level 4.2 g/dL (3.5-5.0); Alkaline Phosphatase 72 U/L (39-117); Anion Gap 9 (12-20); Aspartate Amino Transferase 29 U/L (5-31); Bilirubin Total 0.3 mg/dL (0.0-1.0); Blood Urea Nitrogen 14 mg/dL (9-16); Calcium 8.9 mg/dL (8.4-10.2); Carbon Dioxide 27 mmol/L (22-29); Chloride 107 mmol/L (96-108); Cholesterol 164 mg/dL; Estimated Glomerular Filt Rate > 60; Glucose Random 85 mg/dL (60-115); HDL Cholesterol 57 mg/dL; LDL Cholesterol Calculated 96 mg/dl; Potassium 4.2 mmol/L (3.3-5.1); Sodium 139 mmol/L (135-145); Total Protein 6.9 g/dL (6.5-8.0); Triglycerides 56 mg/dL
[2022-06-08 09:06] LABS: Thyroid Stimulating Hormone 1.48 uIU/mL (0.32-4.0)
[2022-06-08 11:23] LABS: CT PCR NOT DETECTED (Not Detect.); NG PCR NOT DETECTED (Not Detect.)
[2022-06-10 12:18] LABS: Follicle Stimulating Hormone 131.3 mIU/mL
== END 2022-06-08 08:02 | disposition home or self-care (01) ==
LOC: HO.LAB 08:01
PROVIDERS: PCP Internal Medicine; Visit Provider Internal Medicine
DX: Z00.01 Encounter for general adult medical examination with abnormal findings (principal); F32.9 Major depressive disorder, single episode, unspecified; K64.8 Other hemorrhoids; N95.1 Menopausal and female climacteric states; Z12.4 Encounter for screening for malignant neoplasm of cervix
CPT/HCPCS: 80053; 80061; 83001; 84443; 85025; 87491; 87591

== ENCOUNTER 2022-07-16 15:00 | Outpatient (RCR) | payer BC, SELFPAY | END 2022-08-02 11:01 | disposition home or self-care (01) | LOC: HO.PTCHIC 15:00 | PROVIDERS: PCP Internal Medicine; Visit Provider Internal Medicine | DX: M54.9 Dorsalgia, unspecified (principal); M25.561 Pain in right knee; M25.562 Pain in left knee | CPT/HCPCS: 97110; 97162 ==

== ENCOUNTER 2023-03-01 06:40 | Outpatient (REF) | payer BC, SELFPAY ==
[2023-03-01 06:52] LABS: MANUAL DIFF FLAG NO
[2023-03-01 07:37] LABS: Basophils Absolute Auto 0.1 X10*3/uL (0.0-0.2); Basophils Percent Auto 0.9 % (0-2); Eosinophils Absolute Auto 0.2 X10*3/uL (0.0-0.4); Eosinophils Percent Auto 2.1 % (0-4); Hematocrit 36.7 % (37.0-47.0); Hemoglobin 11.8 g/dl (12.0-16.0); Imm Gran Abs Auto 0.02 X10*3/uL (0.00-0.03); Imm Gran Pct Auto 0.2 % (0.0-0.4); Lymphocytes Absolute Auto 4.7 X10*3/uL (1.2-4.9); Mean Corpuscular HGB Conc 32.2 g/dl (31.0-35.0); Mean Corpuscular Hemoglobin 29.8 pg (27.0-33.0); Mean Corpuscular Volume 92.7 fL (80.0-98.0); Mean Platelet Volume 10.2 fL (9.4-12.3); Monocytes Absolute Auto 0.6 X10*3/uL (0.1-1.2); Monocytes Percent Auto 5.7 % (2-11); Neutrophils Absolute Auto 4.8 x10*3/uL (2.0-8.3); Neutrophils Percent Auto 46.1 % (45-73); Platelet Count 303 X10*3/uL (160-400); Red Blood Count 3.96 X10*6/uL (4.20-5.50); Red Cell Distribution Width 11.9 % (11.0-16.0); White Blood Count 10.5 X10*3/uL (4.8-10.8)
[2023-03-01 08:12] LABS: Alanine Aminotransferase 16 U/L (0-31); Albumin Level 4.3 g/dL (3.5-5.0); Alkaline Phosphatase 91 U/L (39-117); Anion Gap 12 (12-20); Aspartate Amino Transferase 17 U/L (5-31); Bilirubin Total 0.6 mg/dL (0.0-1.0); Blood Urea Nitrogen 26 mg/dL (9-16); Calcium 9.5 mg/dL (8.4-10.2); Carbon Dioxide 27 mmol/L (22-29); Chloride 106 mmol/L (96-108); Estimated Glomerular Filt Rate > 60; Glucose Random 84 mg/dL (60-115); Sodium 141 mmol/L (135-145)
[2023-03-01 08:36] LABS: Ferritin 35 ng/mL (10-250); Vitamin B12 475 pg/mL (200-900)
== END 2023-03-01 06:41 | disposition home or self-care (01) ==
LOC: HO.LAB 06:40
PROVIDERS: PCP Internal Medicine; Visit Provider Internal Medicine
DX: D50.8 Other iron deficiency anemias (principal); G43.109 Migraine with aura, not intractable, without status migrainosus; G44.209 Tension-type headache, unspecified, not intractable
CPT/HCPCS: 36415; 80053; 82607; 82728; 85025

== ENCOUNTER 2024-11-13 23:06 | Emergency (ER) | payer BC, SELFPAY ==
--- NOTE | ~2024-11-13 | CT_ITS ---
EXAMINATION: CT ABDOMEN AND PELVIS WITH CONTRAST CLINICAL INFORMATION: Abdominal pain and GI bleeding. COMPARISON: November 06, 2020 TECHNIQUE: Multidetector volumetric images were obtained from the superior aspect of the liver through the pubic symphysis following administration 85 mL of Omnipaque 350 intravenous contrast. Sagittal and coronal reformatted images were obtained on the technologist's workstation. Oral contrast: No This CT examination was performed using dose optimization techniques as appropriate, variously including the following: *Automated exposure control *Adjustment of mA and/or kV according to patient size (this includes techniques or standardized protocols for targeted exams where dose is matched to indication/reason for exam; i.e. extremities or head) *Use of iterative reconstruction technique DLP: 438 mGy-cm FINDINGS: LUNG BASES: The visualized lung bases are unremarkable. LIVER, GALLBLADDER, AND BILIARY TREE: The liver is normal in size, shape, and attenuation. No focal hepatic lesion or biliary ductal dilatation is present. There has been a prior cholecystectomy. PANCREAS: Unremarkable. SPLEEN: Unremarkable. ADRENAL GLANDS: Unremarkable. KIDNEYS AND URETERS: The kidneys are normal in size, shape, and attenuation. No hydronephrosis, hydroureter, or calculi seen. No perinephric stranding. BLADDER: Unremarkable. GASTROINTESTINAL TRACT: There is retained stool. There is rectosigmoid thickening. Appendix is not visualized. ABDOMINAL WALL: There is a small umbilical hernia containing fat. LYMPH NODES: Normal. VASCULAR: Unremarkable. PELVIC VISCERA: Unremarkable. OSSEOUS STRUCTURES: Unremarkable. CT/CT abdomen pelvis w IV con IMPRESSION: 1. Rectosigmoid wall thickening consistent with proctocolitis. 2. Retained stool. 3. Small umbilical hernia containing fat. Fleischner guidelines were followed. Electronically signed by: Forest Keita MD 11/14/2024 02:37 AM EST
[2024-11-13 23:18] VITALS: BP 117/70; PULSE 78; RESP 14; TEMP 37.2; O2SAT 98; BMI 25.6
[2024-11-13 23:53] LABS: Basophils Absolute Auto 0.1 X10*3/uL (0.0-0.2); Basophils Percent Auto 0.8 % (0-2); Eosinophils Absolute Auto 0.3 X10*3/uL (0.0-0.4); Eosinophils Percent Auto 4.3 % (0-4); Hematocrit 32.5 % (37.0-47.0); Hemoglobin 10.8 g/dl (12.0-16.0); Imm Gran Abs Auto 0.01 X10*3/uL (0.00-0.03); Imm Gran Pct Auto 0.1 % (0.0-0.4); Lymphocytes Absolute Auto 2.8 X10*3/uL (1.2-4.9); Lymphocytes Percent Auto 38.3 % (20-40); MANUAL DIFF FLAG NO; Mean Corpuscular HGB Conc 33.2 g/dl (31.0-35.0); Mean Corpuscular Hemoglobin 29.8 pg (27.0-33.0); Mean Corpuscular Volume 89.5 fL (80.0-98.0); Monocytes Absolute Auto 0.6 X10*3/uL (0.1-1.2); Monocytes Percent Auto 7.9 % (2-11); Neutrophils Absolute Auto 3.5 x10*3/uL (2.0-8.3); Neutrophils Percent Auto 48.6 % (45-73); Platelet Count 295 X10*3/uL (160-400); Red Blood Count 3.63 X10*6/uL (4.20-5.50); Red Cell Distribution Width 12.3 % (11.0-16.0); White Blood Count 7.2 X10*3/uL (4.8-10.8)
[2024-11-14 00:10] LABS: Alanine Aminotransferase 19 U/L (0-31); Albumin Level 4.2 g/dL (3.5-5.0); Alkaline Phosphatase 69 U/L (39-117); Anion Gap 14 (12-20); Aspartate Amino Transferase 20 U/L (5-31); Bilirubin Total 0.3 mg/dL (0.0-1.0); Blood Urea Nitrogen 13 mg/dL (9-16); Calcium 9.6 mg/dL (8.4-10.2); Carbon Dioxide 23 mmol/L (22-29); Chloride 108 mmol/L (96-108); Creatinine Clr Calc Pharmacy 91.8; Estimated Glomerular Filt Rate > 60; Glucose Random 109 mg/dL (60-115); Potassium 3.9 mmol/L (3.3-5.1); Sodium 141 mmol/L (135-145); Total Protein 7.7 g/dL (6.5-8.0)
--- NOTE | 2024-11-14 00:37 | ED_ITS ---
HPI - GI Bleed General Chief complaint: GI Bleed Stated complaint: left side pain Time Seen by Provider: 11/14/24 00:20 Source: patient Mode of arrival: ambulatory Limitations: no limitations History of Present Illness ED Provider: DR. Garcia HPI Narrative: 44-year-old female came in for evaluation of bright red blood per rectum for 2 weeks and chronic diarrhea, patient also is been complaining of on and of cramps in the lower abdomen and left buttock cheek. No anticoagulation, patient feels nauseous all day with no vomiting, no fever, no chills, was seen and evaluated by GI 2 years ago with negative workup then reportedly by the patient. history of intra-abdominal surgery is significant for cholecystectomy. Patient with known to have history of hemorrhoid. Related Data Home Medications ?Medication ?Instructions ?Recorded ?Confirmed multivitamin 1 tab PO DAILY 09/22/20 10/31/20 omeprazole 20 mg capsule,delayed 1 cap PO DAILY 10/31/20 10/31/20 release Previous Rx's ?Medication ?Instructions ?Recorded hydrocortisone acetate 25 mg 25 mg IN BEDTIME #12 ea 11/06/20 rectal suppository (Anusol-HC) hydrocortisone acetate 25 mg 25 mg IN BEDTIME PRN hemorrhoids 11/20/20 rectal suppository (Anusol-HC) #12 ea hydrocortisone 2.5 % topical cream 1 appl IN DAILY PRN hemorrhoids 11/26/20 with perineal applicator #30 grams (Anusol-HC) ondansetron 4 mg disintegrating 4 mg PO Q6-8H PRN Nausea And 01/24/21 tablet Vomiting #15 tabs metoclopramide HCl 10 mg tablet 10 mg PO Q6H PRN nausea and 07/29/21 (Reglan) vomiting #20 tabs promethazine 25 mg rectal 25 mg IN Q6H PRN nausea and 07/29/21 suppository vomiting #12 ea cyclobenzaprine 5 mg tablet 5 mg PO BEDTIME PRN muscle spasm 02/22/22 #4 tabs ketorolac 10 mg tablet 10 mg PO Q6H PRN pain 5 days #20 02/22/22 tabs nitrofurantoin 100 mg PO Q12H 7 days #14 caps 02/25/22 monohydrate/macrocrystals 100 mg capsule (Macrobid) Allergies Allergy/AdvReac Type Severity Reaction Status Date / Time strawberry [STRAWBERRY] Allergy Unknown RASH Verified 11/13/24 23:25 norethindrone [From Janneth] AdvReac Unknown Verified 11/13/24 23:25 Review of Systems 2 Review of Systems: All other systems are reviewed and are negative Constitutional: Reports as per HPI and Reports no additional constitutional complaints Eyes: Reports as per HPI and Reports no additional eye complaints Reports system reviewed and no additional complaints, except as documented Cardiovascular: Reports as per HPI and Reports no additional cardiovascular complaints Respiratory: Reports as per HPI and Reports no additional respiratory complaints Gastrointestinal: Reports as per HPI and Reports no additional gastrointestinal complaints Genitourinary: Reports no additional female genitourinary complaints Musculoskeletal: Reports no additional musculoskeletal complaints Skin/Breast: Reports system reviewed and no additional complaints, except as docu Psychiatric: Reports no additional psychiatric complaints Endocrine: Reports no additional endocrine complaints Hematologic/Lymphatic: Reports no additional hematologic/lymphatic complaints Allergic/Immunologic: Reports no additional allergic/immunologic complaints Reports system reviewed and no additional complaints, except as documented and Reports Abnormal speech present [facility] Past Medical History Medical History Hemorrhoids Menopausal disorder Hx of gastroenteritis History of depression Rectal bleeding Surgical History History of cholecystectomy Family History Family History Maternal Aunt Colon cancer Father CAD (coronary artery disease) HTN (hypertension) Malignant melanoma Depression Mother Dementia Hypothyroid Depression Brother No problems noted. 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 Blood pressure elevated. Heart rate normal. Respiratory rate normal. Temperature normal. Oxygen saturation normal. Appearance: Alert. Oriented X3. No acute distress. Head: Normal external exam. Normocephalic. Atraumatic. No Narayanan signs noted. No raccoon eyes noted Eyes: PERRLA. EOMI. Conjunctiva and sclera normal. Eyelids normal. ENT: TM's Normal. Pharynx normal. Uvula midline. Moist mucous membranes. No trismus noted. No drooling noted. No muffled voice noted. Neck: Normal inspection. Neck supple. FROM. No adenopathy. Thyroid Normal. No meningeal signs. No neck mass noted. CVS: Normal heart rate and rhythm. Heart sound normal. No murmurs noted. Pulses normal throughout. Respiratory: No respiratory distress. Painless inspiration. Breath sounds normal. No wheezes/rales/rhonchi noted. Chest nontender. No accessory muscle usage noted or decreased air movement noted. Abdomen: Soft and nontender. Bowel sounds normal in all 4 quadrants. No distention noted. No organomegaly noted. No visible injury noted. Rectal exam: No external hemorrhoids, no palpable internal hemorrhoid, positive mucus mixed with blood in the vault with guaiac positive. Back: No CVA tenderness. Full range of motion noted. Skin: Skin warm and dry. Normal skin color. Normal skin turgor. No rashes/lesions/lacerations noted. Extremities: No lower extremity edema. Extremities exhibit normal range of motion. Extremities nontender. Neuro: Oriented X 3. Cranial nerve exam: II-XII are grossly intact No motor deficit. No sensory deficit. Reflexes normal. Course Reevaluation(s) Reevaluation #1: Bright red blood per rectum for 2 weeks and worsening since last night, patient is not on anticoagulation, waiting for CT abdomen and pelvis rule out intra- abdominal pathology, patient otherwise hemodynamically stable, case signed out to Dr. Raygoza. Time: 01:30 Medical Decision Making Differential Diagnosis Differential Diagnoses: The differential diagnosis associated with the presentation includes (Diverticular disease, colitis, severe anemia, electrolyte derangement.) Admission/Observation Consideration of admission/observation: Escalation of care including admission/observation considered Lab Data MDM Lab Attestation statement: I reviewed the patient's lab results. 11/13/24 23:45 11/13/24 23:45 Labs: Lab Results 12/24/24 Range/Units 23:45 WBC 7.2 (4.8-10.8) X10*3/uL RBC 3.63 L (4.20-5.50) X10*6/uL Hgb 10.8 L (12.0-16.0) g/dl Hct 32.5 L (37.0-47.0) % MCV 89.5 (80.0-98.0) fL MCH 29.8 (27.0-33.0) pg MCHC 33.2 (31.0-35.0) g/dl RDW 12.3 (11.0-16.0) % Plt Count 295 (160-400) X10*3/uL MPV 9.0 L (9.4-12.3) fL Immature Gran % (Auto) 0.1 (0.0-0.4) % Neut % (Auto) 48.6 (45-73) % Lymph % (Auto) 38.3 (20-40) % [place] % (Auto) 7.9 (2-11) % Eos % (Auto) 4.3 H (0-4) % Baso % (Auto) 0.8 (0-2) % Lymph # (Auto) 2.8 (1.2-4.9) X10*3/uL [place] # (Auto) 0.6 (0.1-1.2) X10*3/uL Eos # (Auto) 0.3 (0.0-0.4) X10*3/uL Baso # (Auto) 0.1 (0.0-0.2) X10*3/uL Abs Immat Gran (auto) 0.01 (0.00-0.03) X10*3/uL Absolute Neuts (auto) 3.5 (2.0-8.3) x10*3/uL Absolute Nucleated RBC 0.000 (0.0-0.012) X10*3/uL Nucleated RBC % (auto) 0.0 (0.0-0.2) /100WBC Sodium 141 (135-145) mmol/L Potassium 3.9 (3.3-5.1) mmol/L Chloride 108 (96-108) mmol/L Carbon Dioxide 23 (22-29) mmol/L Anion Gap 14 (12-20) BUN 13 (9-16) mg/dL Creatinine 0.67 (0.5-1.4) mg/dL Estim Creat Clear Calc 91.8 Estimated GFR > 60 Random Glucose 109 (60-115) mg/dL Calcium 9.6 (8.4-10.2) mg/dL Total Bilirubin 0.3 (0.0-1.0) mg/dL AST 20 (5-31) U/L ALT 19 (0-31) U/L Alkaline Phosphatase 69 (39-117) U/L Total Protein 7.7 (6.5-8.0) g/dL Albumin 4.2 (3.5-5.0) g/dL Independent Interpretation I performed an independent interpretation of an: CT Scan Discharge Plan Discharge Clinical Impression: Rectal bleeding, BRBPR (bright red blood per rectum) Patient Disposition: Still a Patient Prescriptions: No Action hydrocortisone [Anusol-HC] 2.5 % cream with perineal applicator 1 appl IN DAILY PRN (Reason: hemorrhoids) Qty: 30 3RF promethazine 25 mg suppository 25 mg IN Q6H PRN (Reason: nausea and vomiting) Qty: 12 0RF metoclopramide HCl [Reglan] 10 mg tablet 10 mg PO Q6H PRN (Reason: nausea and vomiting) Qty: 20 0RF omeprazole 20 mg capsule,delayed release(DR/EC) 1 cap PO DAILY hydrocortisone acetate [Anusol-HC] 25 mg suppository 25 mg IN BEDTIME Qty: 12 0RF ondansetron 4 mg tablet,disintegrating 4 mg PO Q6-8H PRN (Reason: Nausea And Vomiting) Qty: 15 0RF ketorolac 10 mg tablet 10 mg PO Q6H PRN (Reason: pain) 5 Days Qty: 20 0RF Rx Instructions: Patient received Toradol in the emergency room. cyclobenzaprine 5 mg tablet 5 mg PO BEDTIME PRN (Reason: muscle spasm) Qty: 4 0RF nitrofurantoin monohyd/m-cryst [Macrobid] 100 mg capsule 100 mg PO Q12H 7 Days Qty: 14 0RF Rx Instructions: must administer with a meal/food multivitamin Tablet 1 tab PO DAILY hydrocortisone acetate [Anusol-HC] 25 mg suppository 25 mg IN BEDTIME PRN (Reason: hemorrhoids) Qty: 12 2RF Print Language: Comoran
[2024-11-14 00:40] LABS: OBS Int Ctl Valid YES; OBS1 POSITIVE (NEGATIVE)
[2024-11-14 00:59] LABS: HCG Quantitative 5 mIU/mL
[2024-11-14 01:29] VITALS: BP 116/57; PULSE 77; RESP 18; O2SAT 100
[2024-11-14] MEDS: iohexoL 350 MG/ML 100 ML INFUS..BTL 85 ML IV (01:49)
[2024-11-14 01:53] LABS: Appearance Urine Clear; Color Urine Yellow; Glucose Urine UA Negative (Negative); Leukocyte Esterase Urine Large (3+) (Negative); Nitrite Urine Negative (Negative); PH 5.5 (5.0-9.0); Specific Gravity - Urine 1.025 (1.005-1.025); UMIC TRIGGER UACC YES; Urine Blood Small (1+) (Negative); Urine Ketones Negative (Negative); Urine Protein Trace mg/dL (Neg-Trace)
[2024-11-14 02:01] LABS: Bacteria Urine None Seen (None Seen); RBC Urine 0-2 /HPF (0-2); UACC Culture Trigger YES; WBC Clumps Urine Present; WBC Urine >50 /HPF (0-5)
[2024-11-14 03:06] VITALS: BP 111/57; PULSE 83; RESP 18; TEMP 36.8; O2SAT 97
[2024-11-14] MEDS: metroNIDAZOLE 500 MG TABLET PO (03:12)
[2024-11-14] MEDS: levoFLOXacin 500 MG TABLET PO (03:12)
[2024-11-14 03:26] VITALS: BP 111/57; PULSE 83; RESP 18; TEMP 36.8; O2SAT 97
== END 2024-11-14 03:27 | disposition home or self-care (01) ==
PROVIDERS: Emergency Provider Emergency Medicine; PCP Internal Medicine
DX: K62.5 Hemorrhage of anus and rectum (principal); R10.2 Pelvic and perineal pain; Z79.899 Other long term (current) drug therapy
CPT/HCPCS: 36415; 74177; 80053; 81001; 82272; 84702; 85025; 87086; 99283; 99284; Q9967

== ENCOUNTER 2024-11-23 12:38 | Outpatient (AMB) | payer BC, SELFPAY ==
--- NOTE | 2024-11-23 12:41 | A.OFFVIS_ITS ---
Vital Signs 11/23/24 12:42 Height 5 ft 2 in Weight 141 lb 1.533 oz BMI 25.8 BP 124/64 Blood Pressure Location Lt brachial Position Sitting Pulse 74 Intake Visit Reasons: Bloody stools/ED (11/14) rectal bleeding Intake Note: Angelic presents in the office as a new patient for bloody stools. CC: She states that she went to the ED because of bleeding in her stools but yesterday she did not have any bleeding. She showed me a picture - she had a blood clot and bright red when she wiped her BM. She had a ST scan in the ED and for a month she was having chronic diarrhea but after antibiotics she is feeling okay. She was told she was backed up and had a lot of stool in her colon. She states that she has nausea every day and it can happen throughout the day - this is a more recent symptom and she states that she gets cramping all over her abdomen. Allergies strawberry [STRAWBERRY] Allergy (Unknown, Verified 11/23/24 12:43) RASH norethindrone [From Janneth] Adverse Reaction (Verified 11/23/24 12:43) Unknown HPI Comments Details: 44 y.o F with PMH of who is here for abnormal CT scan and rectal bleeding. Pt prev seen in 2020 for similar sx but was lost to follow up. Reports onset 2 months ago initially assoc with lower abd pain and watery diarrhea 4-5 times a day. Over time bleeding progressed. She then also developed acute on chronic abd pain, N,V and diarrhea around marifer time. CT scan showed focal rectosigmoid thickening. Was given Abx for infectious colitis. Now does not have any diarrhea but continues with intermittent bleeding and lower abd pain. Appetite is ok. No untentional weight loss. No fam hx of CRC in first degree relatives. Last colo 11/24/20: proctitis. Poor prep on R side. Path: Chronic, mildly active, proctitis; no dysplasia or granulomata seen It appears pt was prescribed anusol supp but unable to find documentation if that helped and pt unable to recall. Was lost to follow up after that colo. [facility] Medical History Hemorrhoids Menopausal disorder Hx of gastroenteritis History of depression Rectal bleeding Surgical History Hx of colonoscopy History of cholecystectomy Family History Maternal Aunt Colon cancer Father CAD (coronary artery disease) HTN (hypertension) Malignant melanoma Depression Mother Dementia Hypothyroid Depression Brother No problems noted. 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 hx of proctitis noted on colo 2020 with lost to follow up. Now returning for abd pain and rectal bleeding. Diarrhea resolved per pt's report. CT last month shows thickening of rectosigmoid. High suspicion for underlying UC vs crohns given prev background hx. R/o malignancy, though less likely given appearance on colo 2020. Plan: - Urgent colo to be booked - PEG prep reviewed and instructions given - Fecal calpro ordered - Will also get updated CBC and ferritin Follow up after colonoscopy. Orders: Orders Calprotectin, Fecal Today K62.5 - Hemorrhage of anus and rectum Complete Blood Count no Diff Today K62.5 - Hemorrhage of anus and rectum Ferritin Today K62.5 - Hemorrhage of anus and rectum Medications: New peg 3350-electrolytes 236-22.74-6.74 -5.86 gram (Golytely) as per split prep instructions, until fecal effluent is clear 240 mL PO Q10M 4,000 mL 0RF colonoscopy Coding Level of Care Code New Pt Level 4 (58712) Diagnoses Rectal bleeding K62.5 Proctitis K62.89 Proctocolitis K52.9
[2024-11-23 12:42] VITALS: BP 124/64; PULSE 74; BMI 25.8
== END 2024-11-23 13:28 | disposition home or self-care (01) ==
PROVIDERS: PCP Internal Medicine; Visit Provider Internal Medicine
DX: K62.5 Hemorrhage of anus and rectum (principal); K62.89 Other specified diseases of anus and rectum; K52.9 Noninfective gastroenteritis and colitis, unspecified
CPT/HCPCS: 99204

== ENCOUNTER → 2024-11-23 12:38 | Outpatient (BNVA) | payer BC, SELFPAY | PROVIDERS: PCP Internal Medicine; Visit Provider Internal Medicine ==

== ENCOUNTER 2025-07-21 13:18 | Emergency (ER) | payer BC, SELFPAY ==
[2025-07-21] VITALS (7 sets, daily range): BP systolic 105–134; BP diastolic 58–81; PULSE 67–87; RESP 18; TEMP 36.2–36.9; O2SAT 98; BMI 27.4
--- NOTE | ~2025-07-21 | CT_ITS ---
CLINICAL HISTORY: neck mass right side CT soft tissue neck without contrast Comparison: None provided Findings: Tonsils, adenoids and epiglottis are within normal limits. There is no prevertebral soft tissue swelling or fluid. Bilateral parotid and submandibular glands unremarkable. Bilateral shotty adenopathy in the neck. Airway midline without deviation or displacement. No foreign bodies are demonstrated. Visualized upper lungs and sinuses are clear. No acute bony abnormalities demonstrated. Impression: No significant abnormalities. This document has been electronically signed by: Trace Lin MD on 07/21/2025 23:11:23
--- NOTE | ~2025-07-21 | CT_ITS ---
CLINICAL HISTORY: cavernous thrombosis rule out CT head with contrast Comparison: None Findings: No intracranial mass, midline shift, hydrocephalus, or acute hemorrhage. Cavernous sinuses well opacified without significant abnormality. Dural venous sinuses are also unremarkable. No acute process in sinuses or mastoids. No acute bony abnormality. Impression: No acute intracranial process This document has been electronically signed by: Trace Lin MD on 07/21/2025 20:34:31
--- NOTE | 2025-07-21 13:36 | ED_ITS ---
HPI - Eye Problem General Chief complaint: Eye Problems Stated complaint: E eye pain, fever Time Seen by Provider: 07/21/25 17:34 Source: patient Mode of arrival: ambulatory Limitations: no limitations History of Present Illness ED Provider: Dr. Luong [facility] Narrative: This is a 44-year-old female presented hospital today for a couple of days of right eye pain. She knows swelling discharge and redness of the right eye and photophobia. Patient is also complaining of headache. She states she feels pressure behind her right eye. She noted that she had fever 104 at home overnight. Her pain is worsening therefore she presents to the ER for further evaluation denies any other infectious symptoms. She states she does have blurry vision in the right eye. Her baseline migraine does occur behind her right eye. Related Data Home Medications ?Medication ?Instructions ?Recorded ?Confirmed galcanezumab-gnlm 120 mg/mL mg subcut 11/23/24 subcutaneous pen injector (Emgality Pen) ketotifen fumarate 0.025 % (0.035 2 drp ophthalmic (ey e) BID 11/23/24 %) eye drops lidocaine 5 % topical patch 1 patch topical DAILY 02/12 multivitamin with folic acid 400 1 tab PO DAILY mcg tablet (Daily-Cristina (with folic acid)) Previous Rx's ?Medication ?Instructions ?Recorded hydrocortisone 2.5 % topical cream 1 appl OK DAILY PRN hemorrhoids 11/26/20 with perineal applicator #30 grams (Anusol-HC) cyclobenzaprine 5 mg tablet 5 mg PO BEDTIME PRN muscle spasm 02/22/22 #4 tabs peg 3350-electrolytes 236 240 ml PO Q10M colonoscopy # 4,000 11/23/24 gram-22.74 gram-6.74 gram-5.86 mL gram solution (Golytely) Allergies Allergy/AdvReac Type Severity Reaction Status Date / Time strawberry (STRAWBERRY) Allergy Unknown RASH Verified 07/21/25 13:37 norethindrone (From Janneth) AdvReac Unknown Verified 07/21/25 13:37 Review of Systems 2 Review of Systems: Pertinent review of systems as mentioned in HPI. All other system otherwise negative. [facility] Past Medical History [facility] Narrative: Medical history as mentioned in [facility] Medical History Hemorrhoids Menopausal disorder Hx of gastroenteritis History of depression Rectal bleeding Surgical History Hx of colonoscopy History of cholecystectomy Family History Family History Maternal Aunt Colon cancer Father CAD (coronary artery disease) HTN (hypertension) Malignant melanoma Depression Mother Dementia Hypothyroid Depression Brother No problems noted. 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 Vision acuity 20/100 in the right eye, 20/30 on the left, cervical lymph adenopathy appreciated on the right side Gastrointestinal: Soft, non distended, non tender, non guarding Neurological: Awake and alert, no facial droop noted Skin: Warm and dry Psychiatric: Appropriate mood and thoughts Vital Signs: Vital Signs: Last Vital Signs Temp 97.1 F 07/21/25 22:43 Pulse 71 07/21/25 22:43 Resp 18 07/21/25 22:43 BP 113/62 07/21/25 22:43 Pulse Ox 98 07/21/25 22:43 O2 Del Method Room Air 07/21/25 22:43 BMI result Body Mass Index 27.4 Course Course Course Narrative: This is a Rapid Medical Examination (RME) performed by Mehdi Fernandez PA-C in triage. Full HPI, ROS, assessment and treatment plan per primary provider in the Main ED. Hx: 44 yo F here for eval of right eye pain, discharge, photophobia, fever (TMAX 104F last night) x few days. reports hx of similar, has been taking a previous abx prescription (cipro) at home, no improvement. PE/vitals: presents wearing eye patch. noted periorbital swelling, tearing, conjunctival injection, not really tolerating exam. afebrile in triage - took tylenol around 0700 this morning. Plan: labs Medications Administered Discontinued Medications Generic Name Dose Route Start Last Admin Trade Name Gloria PRN Reason Stop Dose Admin Acetaminophen 975 mg 07/21/25 17:46 07/21/25 19:56 Acetaminophen 325 Mg Tablet PO 07/21/25 17:47 975 mg ONCE ONE Administration Ceftriaxone Sodium 2 gm 07/21/25 17:53 07/21/25 18:07 Ceftriaxone Sodium 2 Gm Vial IVPUSH 07/21/25 17:54 2 gm ONCE ONE Administration Fluorescein Sodium 1 strip 07/21/25 13:37 07/21/25 18:06 Fluorescein Sodium Strip EYE-RIGHT 07/21/25 13:38 Not Given ONCE ONE Sodium Chloride 1,000 mls @ 999 mls/hr 07/21/25 18:00 07/21/25 19:54 Ns IV 07/21/25 19:00 Infused .Q1H1M NALINI Infusion Magnesium Sulfate 2 gm in 50 mls @ 50 mls/hr 07/21/25 21:24 07/21/25 21:52 Magnesium Sulfate/H2o IV 07/21/25 22:23 50 mls/hr ONCE ONE Administration Iohexol 100 ml 07/21/25 19:49 07/21/25 19:49 Iohexol 350 Mg/Ml 100 Ml Infus..Btl IV 07/21/25 19:50 85 ml ONCE ONE Administration Metoclopramide HCl 5 mg 07/21/25 21:24 07/21/25 21:52 Metoclopramide Hcl 10 Mg/2 Ml Vial IVPUSH 07/21/25 21:25 5 mg ONCE ONE Administration Morphine Sulfate 4 mg 07/21/25 17:53 07/21/25 18:07 Morphine Sulfate 4 Mg/Ml Cartridge IVPUSH 07/21/25 17:54 4 mg ONCE ONE Administration Protocol Ondansetron HCl 4 mg 07/21/25 17:54 07/21/25 18:07 Ondansetron Hcl 4 Mg/2 Ml Vial IVPUSH 07/21/25 17:55 4 mg ONCE ONE Administration Tetracaine HCl 1 drop 07/21/25 13:37 07/21/25 18:06 Tetracaine Hcl/Pf 0.5% Oph Brigida 4 Ml Drops EYE-RIGHT 07/21/25 13:38 Not Given ONCE ONE Medical Decision Making Medical Decision Making [facility] Narrative: This is a 44-year-old female presenting to ER today for evaluation of right eye pain. Patient was complaining of a fever of 104. No sign of tachycardic here. We will obtain sepsis lab work including a CBC chemistry, lactic acid and blood culture. Patient does have some signs of proptosis via sugar eye movements on right eye. We will obtain CT imaging to assess for orbital cellulitis versus abscess or possible cavernous sinus thrombosis that may be occurring. IV morphine IV fluid and IV ceftriaxone will be given to patient for empiric coverage. IV Zofran be given the patient as well. I do not think this is glaucoma in nature. Pupil constrict with light. Does not appear to be admitted dilated or hazy on exam. I did perform a Wood's lamp exam. There was no signs of Rigo sign. There is no signs of corneal abrasion on exam. CT head was negative for any signs of abnormal orbits. I did discuss this with the radiologist as well. They do not see any stain that might cause him some proptosis or issue with her eyes structurally. I did assess her eye pressure. 11.3 mmhg on right eye. Patient's CT neck is unremarkable as well. Did show some adenopathy. No sign of obstruction in her airway. I did give patient some IV magnesium and IV Reglan for her symptoms. Patient stated her headache has improved and she does feel better at this time. Patient will be discharged home. No sign of concern infectious pathologies behind the patient's right eye. No sign of cavernous sinus thrombosis, retrobulbar hematoma or abscess. Differential Diagnosis Differential Diagnoses: The differential diagnosis associated with the presentation includes Orbital cellulitis, orbital abscess, glaucoma, cavernous sinus thrombosis Lab Data [facility] Lab Attestation statement: I reviewed the patient's lab results. 07/21/25 13:52 07/21/25 13:52 Labs: Lab Results 07/21/25 07/21/25 Range/Units 13:52 18:02 WBC 7.9 (4.8-10.8) X10*3/uL RBC 4.20 (4.20-5.50) X10*6/uL Hgb 12.7 (12.0-16.0) g/dl Hct 37.1 (37.0-47.0) % MCV 88.3 (80.0-98.0) fL MCH 30.2 (27.0-33.0) pg MCHC 34.2 (31.0-35.0) g/dl RDW 11.9 (11.0-16.0) % Plt Count 290 (160-400) X10*3/uL MPV 9.4 (9.4-12.3) fL Immature Gran % (Auto) 0.1 (0.0-0.4) % Neut % (Auto) 56.7 (45-73) % Lymph % (Auto) 35.4 (20-40) % Davidson % (Auto) 5.4 (2-11) % Eos % (Auto) 1.8 (0-4) % Baso % (Auto) 0.6 (0-2) % Lymph # (Auto) 2.8 (1.2-4.9) X10*3/uL Davidson # (Auto) 0.4 (0.1-1.2) X10*3/uL Eos # (Auto) 0.1 (0.0-0.4) X10*3/uL Baso # (Auto) 0.1 (0.0-0.2) X10*3/uL Abs Immat Gran (auto) 0.01 (0.00-0.03) X10*3/uL Absolute Neuts (auto) 4.5 (2.0-8.3) x10*3/uL Absolute Nucleated RBC 0.000 (0.0-0.012) X10*3/uL Nucleated RBC % (auto) 0.0 (0.0-0.2) /100WBC ESR 33 H (0-20) MM/HR Sodium 142 (135-145) mmol/L Potassium 3.9 (3.3-5.1) mmol/L Chloride 108 (96-108) mmol/L Carbon Dioxide 23 (22-29) mmol/L Anion Gap 15 (12-20) BUN 16 (9-16) mg/dL Creatinine 0.77 (0.5-1.4) mg/dL Estim Creat Clear Calc 82.5 Estimated GFR > 60 Random Glucose 117 H (60-115) mg/dL Lactic Acid 1.1 (0.5-2.0) mmol/L Calcium 9.5 (8.4-10.2) mg/dL Magnesium 2.0 (1.6-2.6) mg/dL Total Bilirubin 0.8 (0.0-1.0) mg/dL AST 22 (5-31) U/L ALT 22 (0-31) U/L Alkaline Phosphatase 89 (39-117) U/L C-Reactive Protein 0.27 (< or = 0.50) mg/dL Total Protein 7.5 (6.5-8.0) g/dL Albumin 4.6 (3.5-5.0) g/dL Beta HCG, Quant 6 mIU/mL Independent Interpretation I performed an independent interpretation of an: CT Scan Radiology Impression Discussion of test interpretation with radiology: I have reviewed the radiologist's reading. Discharge Plan Discharge Clinical Impression: Acute right eye pain Headache Qualifiers: Headache type: unspecified Headache chronicity pattern: unspecified pattern I ntractability: not intractable Qualified Code(s): R51.9 - Headache, unspecified Patient Disposition: Home, Self-Care Prescriptions: No Action hydrocortisone [Anusol-HC] 2.5 % cream with perineal applicator 1 appl OK DAILY PRN (Reason: hemorrhoids) Qty: 30 3RF cyclobenzaprine 5 mg tablet 5 mg PO BEDTIME PRN (Reason: muscle spasm) Qty: 4 0RF lidocaine 5 % adhesive patch,medicated 1 patch topical DAILY ketotifen fumarate 0.025 % (0.035 %) drops 2 drp ophthalmic (eye) BID Emgality Pen 120 mg/mL pen injector subcut multivitamin with folic acid [Daily-Cristina (with folic acid)] 400 mcg tablet 1 tab PO DAILY peg 3350-electrolytes [Golytely] 236-22.74-6.74 -5.86 gram recon soln 240 ml PO Q10M Qty: 4000 0RF Rx Instructions: as per split prep instructions, until fecal effluent is clear Print Language: Qatari
[2025-07-21 13:56] LABS: MANUAL DIFF FLAG NO
[2025-07-21 14:00] LABS: Hematocrit 37.1 % (37.0-47.0); Hemoglobin 12.7 g/dl (12.0-16.0); Imm Gran Abs Auto 0.01 X10*3/uL (0.00-0.03); Imm Gran Pct Auto 0.1 % (0.0-0.4); Lymphocytes Absolute Auto 2.8 X10*3/uL (1.2-4.9); Mean Corpuscular HGB Conc 34.2 g/dl (31.0-35.0); Mean Corpuscular Hemoglobin 30.2 pg (27.0-33.0); Mean Corpuscular Volume 88.3 fL (80.0-98.0); NRBC Abs Auto 0.000 X10*3/uL (0.0-0.012); NRBC Pct Auto 0.0 /100WBC (0.0-0.2); Platelet Count 290 X10*3/uL (160-400); Red Blood Count 4.20 X10*6/uL (4.20-5.50); White Blood Count 7.9 X10*3/uL (4.8-10.8)
[2025-07-21 14:10] LABS: Alanine Aminotransferase 22 U/L (0-31); Albumin Level 4.6 g/dL (3.5-5.0); Alkaline Phosphatase 89 U/L (39-117); Anion Gap 15 (12-20); Aspartate Amino Transferase 22 U/L (5-31); Blood Urea Nitrogen 16 mg/dL (9-16); Calcium 9.5 mg/dL (8.4-10.2); Carbon Dioxide 23 mmol/L (22-29); Chloride 108 mmol/L (96-108); Creatinine Clr Calc Pharmacy 82.5; Estimated Glomerular Filt Rate > 60; Magnesium 2.0 mg/dL (1.6-2.6); Potassium 3.9 mmol/L (3.3-5.1); Sodium 142 mmol/L (135-145); Total Protein 7.5 g/dL (6.5-8.0)
--- OUTSIDE RECORDS SUMMARY | 2025-07-21 17:21 | XMS_ITS ---
Author Name [facility] Organization Unknown Care Team Organization Name Specialty Phone Email Start Date End Da te [employer] 09/05/2022 0 07/09/2024
--- NOTE | 2025-07-21 17:28 | PC.NURSE ---
Pt reports very blurry vision R eye along with sharp, burning pain;pt having trouble keeping eyelid open to perform visual acuity; R eye 20/100, L eye 20/30; pt doesnt wear corrective lenses; no drainage noted from R eye; sclera slightly red
[2025-07-21] MEDS: iohexoL 350 MG/ML 100 ML INFUS..BTL IV (19:49)
[2025-07-21] MEDS: Magnesium Sulfate/H2O 2 GM/50 ML PIGGYBACK IV (21:52)
--- NOTE | 2025-07-21 23:33 | PC.NURSE ---
iv magnesium continuing to infuse discharge pending
== END 2025-07-21 23:50 | disposition home or self-care (01) ==
PROVIDERS: Physician Assistant Medical; Emergency Provider Student in an Organized Health Care Education/Training Program; PCP Internal Medicine
DX: H57.11 Ocular pain, right eye (principal); R51.9 Headache, unspecified; H53.141 Visual discomfort, right eye; R50.9 Fever, unspecified; M54.2 Cervicalgia; R11.0 Nausea; R10.2 Pelvic and perineal pain; Z79.899 Other long term (current) drug therapy
CPT/HCPCS: 36415; 70460; 70490; 80053; 83605; 83735; 84702; 85025; 85652; 86140; 87040; 96361; 96365; 96366; 96375; 99285; J0696; J2270; J2405; J2765; J3475; Q9967

== ENCOUNTER → 2025-07-21 17:46 | Outpatient (BNV) | payer BC, SELFPAY | PROVIDERS: Emergency Provider Student in an Organized Health Care Education/Training Program; PCP Internal Medicine; Visit Provider Radiology Diagnostic Radiology | DX: H53.8 Other visual disturbances (principal) | CPT/HCPCS: 70460; 70490 ==

== ENCOUNTER 2025-07-23 20:06 | Emergency (ER) | payer BC, SELFPAY ==
--- NOTE | ~2025-07-23 | MR_ITS ---
EXAMINATION: MRI ORBIT/FACE/NECK WITHOUT AND WITH CONTRAST CLINICAL INFORMATION: Severe right eye pain. COMPARISON: Correlated to CT orbits dated July 24, 2025 reporting periorbital edema, preseptal without abscess. TECHNIQUE: MRI of the orbits/face/neck was obtained using routine sequences without and with contrast. Intravenous contrast: (Gadavist) 6.5 mL.. No reported immediate complications. FINDINGS: There is asymmetric homogeneously enhanced enlarged right lacrimal gland. There is mild hypointense T1 slightly hyperintense T2 homogeneous enhancement in the preseptal compartment of the right and to a lesser extent left orbit. No peripheral enhancing fluid collections in the preseptal compartment. The eyeballs are intact. The extraocular muscles demonstrate normal morphology and enhancement pattern. No abnormal enhancement in the intraconal or extraconal compartments of the orbits. The intraconal, intracanalicular and, prechiasmatic segments of the optic nerves demonstrate no signal abnormality or abnormal enhancement. Mucosal thickening, ethmoid air cells. The flow-void signal within the petrous cavernous supracavernous segments and terminalis of the ICA is normal. No abnormal enhancement in the cavernous sinuses. Skull base, nasopharynx demonstrated no enhancing lesion. The included tooling supervisor compartment demonstrated no abnormal enhancement. No restricted diffusion. No abnormal enhancement in the intra-axial or extra-axial compartments of the cranium based upon the axial T1 postcontrast sequence. Sagittal T2 sequence demonstrated normal position of the cerebellar tonsils.. MR/MR orbits face neck wo/w con IMPRESSION: No abscess or phlegmon. Asymmetric enlarged right lacrimal gland. Consider lymphoproliferative disorder versus sarcoidosis among other etiologies. Electronically signed by: Toño Alberts MD 07/24/2025 12:32 PM EDT
--- NOTE | ~2025-07-23 | CT_ITS ---
CLINICAL HISTORY: pain, infection, periorbital cellulitis? CT orbits with contrast Comparison: Head CT from 07/21/2025 Findings: Imaged periorbital soft tissue swelling imaged edema can be seen with reported cellulitis and appears preseptal. No acute intraconal stranding. No retrobulbar mass. No defined or definite drainable abscess. Mild asymmetry of the lacrimal glands appears within physiologic limits. Small air-fluid level noted in the right maxillary sinus of the additional fluid and mucosal thickening of the imaged paranasal sinuses. Nasal septum deviation with S shaped morphology. No CT findings of the osteomyelitis of the orbital mullen. Asymmetric pneumatization of the imaged petrous apices without definite petrous apicitis by CT at this time. IMPRESSION: 1. Periorbital edema and/or cellulitis appears preseptal. No drainable abscess at this time. 2. Fluid of the paranasal sinuses is nonspecific including air-fluid level in the maxillary sinus. As can be associated with sinusitis. This document has been electronically signed by: Bijan Nicholson MD on 07/24/2025 02:30:31
[2025-07-23 20:21] VITALS: BP 138/63; PULSE 98; RESP 22; TEMP 37.2; O2SAT 95; BMI 27.1
[2025-07-23 22:11] VITALS: BP 131/47; PULSE 94; RESP 16; TEMP 36.7; O2SAT 98
--- NOTE | 2025-07-23 23:16 | ED_ITS ---
HPI - General Adult General Chief complaint: Eye Problems Stated complaint: R eye pain, was seen here on Fri Time Seen by Provider: 07/23/25 23:15 Source: patient Limitations: no limitations History of Present Illness ED Provider: Yuni Yates PA-C HPI narrative: 44-year-old female with a history of migraine presents with right eye pain times 4-5 days. Patient presented to the emergency department 2 days ago for right eye pain. She had extensive workup that was essentially negative. She was discharged home. Patient states her symptoms have increased in severity. Pain remains focal to the right eye, with a retro-orbital headache. Her pain is severe. Associated discomfort with extraocular eye movements, photo phobia and nausea at times. Patient states she can barely open either eye, right is worse than the left. Denies fever. Patient has not had follow up since her 1st emergency room visit. Related Data Home Medications ?Medication ?Instructions ?Recorded ?Confirmed galcanezumab-gnlm 120 mg/mL mg subcut 11/23/24 subcutaneous pen injector (Emgality Pen) ketotifen fumarate 0.025 % (0.035 2 drp ophthalmic (ey e) BID 11/23/24 %) eye drops lidocaine 5 % topical patch 1 patch topical DAILY 02/12 multivitamin with folic acid 400 1 tab PO DAILY mcg tablet (Daily-Cristina (with folic acid)) Previous Rx's ?Medication ?Instructions ?Recorded hydrocortisone 2.5 % topical cream 1 appl GA DAILY PRN hemorrhoids 11/26/20 with perineal applicator #30 grams (Anusol-HC) cyclobenzaprine 5 mg tablet 5 mg PO BEDTIME PRN muscle spasm 02/22/22 #4 tabs peg 3350-electrolytes 236 240 ml PO Q10M colonoscopy # 4,000 11/23/24 gram-22.74 gram-6.74 gram-5.86 mL gram solution (Golytely) doxycycline hyclate 100 mg capsule 100 mg PO BID 7 day s #14 caps 07/21/25 hydromorphone 4 mg tablet 4 mg PO Q6H PRN pain #10 tab s 07/24/25 (Dilaudid) ondansetron 4 mg disintegrating 4 mg PO Q6H #20 tabs 0 07/24/25 tablet Allergies Allergy/AdvReac Type Severity Reaction Status Date / Time strawberry (STRAWBERRY) Allergy Unknown RASH Verified 07/23/25 20:24 norethindrone (From Janneth) AdvReac Unknown Verified 07/23/25 20:24 Review of Systems 2 Review of Systems: Yes all other systems are reviewed and are negative Constitutional: Constitutional: Denies fatigue, Denies fever(s) and Reports headache(s) Eyes: Eyes: Denies exophthalmos, Reports eye pain and Reports photophobia ENT: Reports headache(s) Gastrointestinal: Gastrointestinal: Reports nausea Neurologic: Reports headache(s) Endocrine: Endocrine: Denies fatigue [facility] Past Medical History Attestation statement: The following information was validated with the patient. Medical History Hemorrhoids Menopausal disorder Hx of gastroenteritis History of depression Rectal bleeding Surgical History Hx of colonoscopy History of cholecystectomy Family History Family History Maternal Aunt Colon cancer Father CAD (coronary artery disease) HTN (hypertension) Malignant melanoma Depression Mother Dementia Hypothyroid Depression Brother No problems noted. 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 Physical Exam ED Vital Signs: Vital Signs - 24 hr 07/23/25 22:11 07/24/25 04:00 07/24/25 06:00 Temperature 98.1 F 98.5 F Pulse Rate 94 69 74 Respiratory Rate 16 12 16 Blood Pressure 131/47 L 112/65 98/63 Pulse Oximetry 98 98 95 Oxygen Delivery Method Room Air Room Air Room Air Oxygen Flow Rate 07/24/25 08:00 07/24/25 08:02 07/24/25 10:50 Temperature 97.2 F Pulse Rate 66 81 71 Respiratory Rate 12 16 16 Blood Pressure 129/73 129/73 111/67 Pulse Oximetry 99 100 98 Oxygen Delivery Method Nasal Cannula Room Air Nasal Cannula Oxygen Flow Rate 2 2 07/24/25 14:00 07/24/25 16:31 07/24/25 16:31 Temperature 98.6 F 98.2 F 98.2 F Pulse Rate 84 64 64 Respiratory Rate 16 16 16 Blood Pressure 103/53 L 105/64 105/64 Pulse Oximetry 95 97 97 Oxygen Delivery Method Room Air Room Air Room Air Oxygen Flow Rate BMI result Body Mass Index 27.1 Const Other: Crying, in a great deal of pain Orientation/consciousness: patient oriented x3 Eyes Other: Unable to participate in visual acuity, she is very photosensitive, she can barely open either eye. With a forceful opening of the eye, I was able to view the sclera which is injected. Direct Ophthalmoscopy: photophobia Resp Effort & Inspection: normal respiratory effort Cardio Other: Normal peripheral perfusion Skin Other: Warm dry no rash Neuro General: patient oriented x3, gait normal, no focal motor deficits and CN's II- XI intact bilaterally Psych Other: Anxious, tearful but cooperative Course Reevaluation(s) Reevaluation #1: Attempted to admit the patient to the hospitalist service, Dr. Lindsey is not comfortable accepting the patient, given lack of Ophthalmology coverage. We actually do, she was not aware, she is assessing the patient now, she will contact Dr. Ramirez in a few hours, later in AM Time: 04:17 Reevaluation #2: Time: 07:19 Date: 07/24/25 Provider: Gerardo Navarro MD attending note Received sign-out on this patient from my colleague, physician legal assistant Yuni Yates at 06:00 hours. The patient is a 44-year-old female with a history of chronic migraine headaches, depression, menopause who presents emergency department for evaluation of for days of right-sided eye pain and right-sided headache. Patient was seen in the emergency department 2 days prior on (07/21/2025). I did review this ED note. At that time, she presented with discharged from the right eye, photophobia and a T-max of a 104 degrees F time 2 days documented at home. Patient had a left over prescription for ciprofloxacin and took 3 doses of this medication prior to coming to the emergency department with no improvement of her symptoms. Two days prior, the patient's vital signs were normal. Exam revealed proptosis of the right eye with conjunctivitis and pain with movement of her eye. Visual acuity in the right eye was 20/100 and left eye was 20/30, patient was also sent her to have right cervical adenopathy. Patient received ceftriaxone 1 g IV , Reglan 10 mg IV and morphine [address] scan of the head and soft tissue of the neck with without contrast were unremarkable. Intra-ocular pressure of the right eye was 11.3. Patient was diagnosed with a right eye pain and discharged home with doxycycline 100 mg twice a day for 7 days. Patient returned to the emergency department this morning for evaluation of increased pain in her right eye which was greater than 10/10, headache which was greater than 10/10 with a associated nausea. She states that her right eye was swollen shut and she continued to have blurred vision and photophobia. She did not have documented fevers at home. Patient had CT of the orbits which revealed periorbital edema and/or preseptal cellulitis and fluid of the paranasal sinuses including air-fluid levels in the maxillary sinuses. WBC was normal 9900. ESR was slightly elevated at 34 (normal is 0-20). Lactic acid was normal. AST and ALT were elevated 40 and 116. TSH was normal. Beta HCG was 6. CRP was normal at 0.18. Patient was treated with ceftriaxone, ampicillin/sulbactam 3 g IV and vancomycin 1250 mg IV. Patient required significant amount of medications for pain, including Toradol 15 mg and 30 mg IV, morphine 4 mg IV x2, Dilaudid 0.5 mg IV. At the time my evaluation she is still having 5/10 pain and she was ordered to get Dilaudid 1 mg IV. The patient was initially presented to our hospitalist, Dr. Lindsey who did evaluate the patient. Dr. Lindsey was concerned that the patient's pain seems to be out of proportion to the physical findings and felt that the patient does need an ophthalmology evaluation. Dr. Ramirez did evaluate the patient here in the emergency department. The patient's intra-ocular pressure in both eyes were 21. He is concerned that the patient may have iritis and recommended that the patient gets Pred Forte 1% drops every 2 hours while awake for the 1st 24 hours then q.i.d.. He also recommended atropine 1 drop b.i.d. He requested MRI of the orbit to rule out inflammation of the extra ocular muscle tendons which would then require IV steroids. Patient did have blood cultures from 07/21/[address] Ramirez felt that the patient should still be admitted for IV antibiotics until the next set of cultures are negative as well. I did order an MRI of the orbits and neck with and without contrast. MRI states that they should be able to do this study at around noon time. Patient will be kept here in the emergency department until MRI is available and I Re discuss the patient with our senior facilities manager, Dr. Ramirez. 10:19 Nurse reports the patient is still having 6/10 pain with recurrence of her nausea. Patient did receive her atropine eyedrops with no relief of her pain and she also received her Pred Forte drops. Patient was ordered to get Dilaudid 0.5 mg, Reglan 10 mg and Benadryl 25 mg IV. 15:53 MRI of the orbits and face revealed asymmetric enlargement of the right lacrimal gland compared to the left. There was no cellulitis noted on the MRI which is reassuring. I did discuss the MRI with Dr. Ramirez. At this time he does not think that the patient has an infection and thinks that the patient may have iritis or other etiologies for the cause of her pain. Patient was given another dose of Dilaudid 1 mg IV with Benadryl 25 mg IV. Patient will be discharged home. She was advised to take Pred Forte 1% drops 1 drop 4 times a day for 2 hours while awake today and then 4 times a day tomorrow. She was also advised to take atropine 1 drop twice a day. Patient was advised to take Tylenol for pain and for pain not relieved by Tylenol she was given a prescription for Dilaudid 4 mg pills every 6 hours as needed. She was also advised to take ondansetron 4 mg ODT every 6-8 hours as needed. Patient will follow-up tomorrow with Dr. Ramirez for re-evaluation. Medications Administered Discontinued Medications Generic Name Dose Route Start Last Admin Trade Name Freq PRN Reason Stop Dose Admin Atropine Sulfate 1 drop 07/24/25 09:00 07/24/25 09:24 Atropine Sulfate 1 % Ophth Brigida 2 Ml Bottle EYE-RIGHT 1 drop BID NALINI Administration Ceftriaxone Sodium 2 gm 07/24/25 02:58 07/24/25 03:33 Ceftriaxone Sodium 2 Gm Vial IVPUSH 07/24/25 02:59 2 gm ONCE ONE Administration Diphenhydramine HCl 25 mg 07/24/25 10:18 07/24/25 10:41 Diphenhydramine Hcl 50 Mg/Ml Vial IVPUSH 07/24/25 10:19 25 mg ONCE ONE Administration Diphenhydramine HCl 25 mg 07/24/25 15:51 07/24/25 16:02 Diphenhydramine Hcl 50 Mg/Ml Vial IVPUSH 07/24/25 15:52 25 mg ONCE ONE Administration Fluorescein Sodium 1 strip 07/23/25 23:31 07/24/25 00:03 Fluorescein Sodium Strip EYE-RIGHT 07/23/25 23:32 1 strip ONCE ONE Administration Gadobutrol 7.5 ml 07/24/25 11:57 07/24/25 11:58 Gadobutrol 7.5 Ml Vial IVPUSH 07/24/25 11:58 6.5 ml ONCE ONE Administration Hydromorphone HCl 0.5 mg 07/24/25 04:59 07/24/25 06:11 Hydromorphone Hcl 0.5 Mg/0.5 Ml Syringe IVPUSH 07/24/25 05:00 0.5 mg ONCE STA Administration Protocol Hydromorphone HCl 0.5 mg 07/24/25 08:00 07/24/25 14:25 Hydromorphone Hcl 1 Mg/Ml Syringe IVPUSH 0.5 mg Q4H PRN Administration Pain, Severe (Pain Scale 7-10) Protocol Hydromorphone HCl 1 mg 07/24/25 07:25 07/24/25 07:54 Hydromorphone Hcl 1 Mg/Ml Syringe IVPUSH 07/24/25 07:26 1 mg ONCE STA Administration Protocol Hydromorphone HCl 0.5 mg 07/24/25 10:18 07/24/25 10:49 Hydromorphone Hcl 0.5 Mg/0.5 Ml Syringe IVPUSH 07/24/25 10:19 0.5 mg ONCE ONE Administration Protocol Hydromorphone HCl 1 mg 07/24/25 15:51 07/24/25 16:01 Hydromorphone Hcl 1 Mg/Ml Syringe IVPUSH 07/24/25 15:52 1 mg ONCE STA Administration Protocol Sodium Chloride 500 mls @ 500 mls/hr 07/23/25 23:23 07/24/25 03:34 Ns IV 07/24/25 00:22 Infused .Q1H ONE Infusion Vancomycin HCl 1,250 mg/ 250 mls @ 166.667 mls/hr 07/24/25 06:00 07/24/25 08:50 Sodium Chloride IV 07/24/25 07:29 Infused ONCE ONE Infusion Ampicillin Sodium/Sulbactam 100 mls @ 200 mls/hr 07/24/25 09:00 07/24/25 16:02 Sodium 3 gm/ Sodium Chloride IV Infused Q6H NALINI Infusion Vancomycin HCl 750 mg/ Sodium 265 mls @ 265 mls/hr 07/24/25 14:00 07/24/25 15:27 Chloride IV Infused Q8H NALINI Infusion Iohexol 85 ml 07/24/25 01:08 07/24/25 01:13 Iohexol 350 Mg/Ml 100 Ml Infus..Btl IV 07/24/25 01:09 85 ml ONCE ONE Administration Ketorolac Tromethamine 15 mg 07/24/25 03:02 07/24/25 03:33 Ketorolac Tromethamine 15 Mg/Ml Vial IVPUSH 07/24/25 03:03 15 mg ONCE ONE Administration Ketorolac Tromethamine 30 mg 07/24/25 04:59 07/24/25 06:11 Ketorolac Tromethamine 30 Mg/Ml Vial IVPUSH 07/24/25 05:00 30 mg ONCE STA Administration Metoclopramide HCl 10 mg 07/24/25 10:18 07/24/25 10:42 Metoclopramide Hcl 10 Mg/2 Ml Vial IVPUSH 07/24/25 10:19 10 mg ONCE STA Administration Midazolam HCl 2 mg 07/23/25 23:23 07/23/25 23:54 Midazolam Hcl 2 Mg/2 Ml Vial IVPUSH 07/23/25 23:24 2 mg ONCE ONE Administration Morphine Sulfate 4 mg 07/23/25 23:23 07/23/25 23:54 Morphine Sulfate 4 Mg/Ml Cartridge IVPUSH 07/23/25 23:24 4 mg ONCE ONE Administration Protocol Morphine Sulfate 4 mg 07/24/25 01:59 07/24/25 02:21 Morphine Sulfate 4 Mg/Ml Cartridge IVPUSH 07/24/25 02:00 4 mg ONCE ONE Administration Protocol Ondansetron HCl 4 mg 07/23/25 23:23 07/23/25 23:54 Ondansetron Hcl 4 Mg/2 Ml Vial IVPUSH 07/23/25 23:24 4 mg ONCE ONE Administration Ondansetron HCl 4 mg 07/24/25 05:02 07/24/25 08:56 Ondansetron Hcl 4 Mg/2 Ml Vial IVPUSH 4 mg Q8H PRN Administration Nausea and Vomiting Prednisolone Acetate 1 drop 07/24/25 08:15 07/24/25 16:06 Prednisolone Acetate 1 % Oph Susp 5 Ml Drpbtl EYE-RIGHT Not Given Q2H NALINI Sodium Chloride 3 ml 07/24/25 08:00 07/24/25 15:29 0.9 % Sodium Chloride Flush 3 Ml Syringe IVFLUSH Not Given QSHIFT NALINI Tetracaine HCl 3 drop 07/23/25 23:31 07/24/25 00:04 Tetracaine Hcl 0.5% Oph Brigida 5 Ml Drops EYE-RIGHT 07/23/25 23:32 Not Given ONCE ONE Tetracaine HCl 3 drop 07/24/25 07:45 07/24/25 07:55 Tetracaine Hcl/Pf 0.5% Oph Brigida 4 Ml Drops EYE-RIGHT 07/24/25 07:46 3 drop ONCE ONE Administration Medical Decision Making Medical Decision Making MDM Narrative: 44-year-old female with a history of migraine presents with right eye pain times 4-5 days. Patient presented to the emergency department 2 days ago for right eye pain. She had extensive workup that was essentially negative. She was discharged home. Patient states her symptoms have increased in severity. Pain remains focal to the right eye, with a retro-orbital headache. Her pain is severe. Associated discomfort with extraocular eye movements, photo phobia and nausea at times. Patient states she can barely open either eye, right is worse than the left. Denies fever. Patient has not had follow up since her 1st emergency room visit. Problem: Migraine History: Per patient I have considered the following differential diagnoses: Corneal abrasion, glaucoma, periorbital cellulitis, uveitis, keratitis, conjunctivitis Plan: During the patient's 1st visit she had extensive workup. Intra-ocular eye pressures were checked the IOP was 11.3 in the affected eye. Slit-lamp exam was performed, the eye was stained with fluorescein, there was no corneal abrasion. CT scans of the brain and neck with IV contrast were obtained, there was no central venous thrombosis, there was no retro-orbital abscess, essentially the scans were normal. Furthermore, the patient had normal labs, no leukocytosis, her inflammatory markers were not elevated. She was discharged home. Tonight, the patient's pain is severe, I premedicated her just to view the eye, with morphine and Versed, she is barely able to tolerate minimal exam to inspect the cornea and sclera. I am obtaining CT scan of the orbits to rule out preseptal cellulitis. I may need to reach out to ophthalmology. I am holding on repeating all exam elements until the CT scan returns. I have independently reviewed the following tests: Labs: No leukocytosis, not anemic, ESR minimally elevated, no electrolyte abnormality, CRP not elevated, lactic 0.7 CT orbits: Findings: Imaged periorbital soft tissue swelling imaged edema can be seen with reported cellulitis and appears preseptal. No acute intraconal stranding. No retrobulbar mass. No defined or definite drainable abscess. Mild asymmetry of the lacrimal glands appears within physiologic limits. Small air-fluid level noted in the right maxillary sinus of the additional fluid and mucosal thickening of the imaged paranasal sinuses. Nasal septum deviation with S shaped morphology. No CT findings of the osteomyelitis of the orbital mullen. Asymmetric pneumatization of the imaged petrous apices without definite petrous apicitis by CT at this time. IMPRESSION: 1. Periorbital edema and/or cellulitis appears preseptal. No drainable abscess at this time. 2. Fluid of the paranasal sinuses is nonspecific including air-fluid level in the maxillary sinus. As can be associated with sinusitis. Differential Diagnosis Differential Diagnoses: The differential diagnosis associated with the presentation includes See medical decision-making Admission/Observation Consideration of admission/observation: Escalation of care including admission/observation considered Hospital admit Consult Healthcare Provider Management of the patient was discussed with: Hospitalist and Map Compiler Likely ophthalmology during her admission Lab Data MDM Lab Attestation statement: I reviewed the patient's lab results. 07/23/25 23:44 07/24/25 08:39 Labs: Lab Results 07/23/25 07/24/25 07/24/25 Range/Units 23:44 03:18 06:42 WBC 9.9 (4.8-10.8) X10*3/uL RBC 4.24 (4.20-5.50) X10*6/uL Hgb 12.6 (12.0-16.0) g/dl Hct 37.9 (37.0-47.0) % MCV 89.4 (80.0-98.0) fL MCH 29.7 (27.0-33.0) pg MCHC 33.2 (31.0-35.0) g/dl RDW 12.0 (11.0-16.0) % Plt Count 326 (160-400) X10*3/uL MPV 9.4 (9.4-12.3) fL Immature Gran % (Auto) 0.3 (0.0-0.4) % Neut % (Auto) 59.6 (45-73) % Lymph % (Auto) 34.5 (20-40) % Deuel % (Auto) 4.1 (2-11) % Eos % (Auto) 0.9 (0-4) % Baso % (Auto) 0.6 (0-2) % Lymph # (Auto) 3.4 (1.2-4.9) X10*3/uL Deuel # (Auto) 0.4 (0.1-1.2) X10*3/uL Eos # (Auto) 0.1 (0.0-0.4) X10*3/uL Baso # (Auto) 0.1 (0.0-0.2) X10*3/uL Abs Immat Gran (auto) 0.03 (0.00-0.03) X10*3/uL Absolute Neuts (auto) 5.9 (2.0-8.3) x10*3/uL Absolute Nucleated RBC 0.000 (0.0-0.012) X10*3/uL Nucleated RBC % (auto) 0.0 (0.0-0.2) /100WBC ESR 34 H (0-20) MM/HR Sodium 140 (135-145) mmol/L Potassium 4.0 (3.3-5.1) mmol/L Chloride 107 (96-108) mmol/L Carbon Dioxide 24 (22-29) mmol/L Anion Gap 13 (12-20) BUN 13 (9-16) mg/dL Creatinine 0.65 (0.5-1.4) mg/dL Estim Creat Clear Calc 97.2 Estimated GFR > 60 Random Glucose 90 (60-115) mg/dL Lactic Acid 0.7 (0.5-2.0) mmol/L Calcium 9.7 (8.4-10.2) mg/dL Magnesium 1.9 (1.6-2.6) mg/dL Total Bilirubin 0.7 (0.0-1.0) mg/dL AST 40 H (5-31) U/L ALT 116 H (0-31) U/L Alkaline Phosphatase 91 (39-117) U/L C-Reactive Protein 0.18 (< or = 0.50) mg/dL Total Protein 7.8 (6.5-8.0) g/dL Albumin 4.7 (3.5-5.0) g/dL TSH 0.84 (0.32-4.0) uIU/mL Beta HCG, Quant 6 mIU/mL Hepatitis A IgM Ab Nonreactive (Nonreactive) Hep Bs Antigen Negative (Negative) Hep Bs Antibody NONREACTIVE (Nonreactive) Hep B Core Total Ab Nonreactive (Nonreactive) Hepatitis C Ab (EIA) Nonreactive (Nonreactive) 07/24/25 Range/Units 08:39 WBC (4.8-10.8) X10*3/uL RBC (4.20-5.50) X10*6/uL Hgb (12.0-16.0) g/dl Hct (37.0-47.0) % MCV (80.0-98.0) fL MCH (27.0-33.0) pg MCHC (31.0-35.0) g/dl RDW (11.0-16.0) % Plt Count (160-400) X10*3/uL MPV (9.4-12.3) fL Immature Gran % (Auto) (0.0-0.4) % Neut % (Auto) (45-73) % Lymph % (Auto) (20-40) % Deuel % (Auto) (2-11) % Eos % (Auto) (0-4) % Baso % (Auto) (0-2) % Lymph # (Auto) (1.2-4.9) X10*3/uL Deuel # (Auto) (0.1-1.2) X10*3/uL Eos # (Auto) (0.0-0.4) X10*3/uL Baso # (Auto) (0.0-0.2) X10*3/uL Abs Immat Gran (auto) (0.00-0.03) X10*3/uL Absolute Neuts (auto) (2.0-8.3) x10*3/uL Absolute Nucleated RBC (0.0-0.012) X10*3/uL Nucleated RBC % (auto) (0.0-0.2) /100WBC ESR (0-20) MM/HR Sodium (135-145) mmol/L Potassium (3.3-5.1) mmol/L Chloride (96-108) mmol/L Carbon Dioxide (22-29) mmol/L Anion Gap (12-20) BUN (9-16) mg/dL Creatinine 0.69 (0.5-1.4) mg/dL Estim Creat Clear Calc 91.5 Estimated GFR > 60 Random Glucose (60-115) mg/dL Lactic Acid (0.5-2.0) mmol/L Calcium (8.4-10.2) mg/dL Magnesium (1.6-2.6) mg/dL Total Bilirubin (0.0-1.0) mg/dL AST (5-31) U/L ALT (0-31) U/L Alkaline Phosphatase (39-117) U/L C-Reactive Protein (< or = 0.50) mg/dL Total Protein (6.5-8.0) g/dL Albumin (3.5-5.0) g/dL TSH (0.32-4.0) uIU/mL Beta HCG, Quant mIU/mL Hepatitis A IgM Ab (Nonreactive) Hep Bs Antigen (Negative) Hep Bs Antibody (Nonreactive) Hep B Core Total Ab (Nonreactive) Hepatitis C Ab (EIA) (Nonreactive) Radiology Impression Discussion of test interpretation with radiology: I have reviewed the radiologist's reading. Radiologist Impression: EXAMINATION: MRI ORBIT/FACE/NECK WITHOUT AND WITH CONTRAST CLINICAL INFORMATION: Severe right eye pain. COMPARISON: Correlated to CT orbits dated July 24, 2025 reporting periorbital edema, preseptal without abscess. TECHNIQUE: MRI of the orbits/face/neck was obtained using routine sequences without and with contrast. Intravenous contrast: (Gadavist) 6.5 mL.. No reported immediate complications. FINDINGS: There is asymmetric homogeneously enhanced enlarged right lacrimal gland. There is mild hypointense T1 slightly hyperintense T2 homogeneous enhancement in the preseptal compartment of the right and to a lesser extent left orbit. No peripheral enhancing fluid collections in the preseptal compartment. The eyeballs are intact. The extraocular muscles demonstrate normal morphology and enhancement pattern. No abnormal enhancement in the intraconal or extraconal compartments of the orbits. The intraconal, intracanalicular and, prechiasmatic segments of the optic nerves demonstrate no signal abnormality or abnormal enhancement. Mucosal thickening, ethmoid air cells. The flow-void signal within the petrous cavernous supracavernous segments and terminalis of the ICA is normal. No abnormal enhancement in the cavernous sinuses. Skull base, nasopharynx demonstrated no enhancing lesion. The included top flavor attendant compartment demonstrated no abnormal enhancement. No restricted diffusion. No abnormal enhancement in the intra-axial or extra-axial compartments of the cranium based upon the axial T1 postcontrast sequence. Sagittal T2 sequence demonstrated normal position of the cerebellar tonsils.. IMPRESSION: No abscess or phlegmon. Asymmetric enlarged right lacrimal gland. Consider lymphoproliferative disorder versus sarcoidosis among other etiologies. Electronically signed by: Toño Alberts MD 07/24/2025 12:32 PM Attestation Attending Attestation: I was personally present and available for consultation in the ED. I have reviewed everything in the chart that is available and agree with the documentation provided by the ALBERT including discussion about the assessment, treatment plan and discussion. Based on medical record the care appears appropriate. Sana Denise, Emergency Medicine Critical Care Time Critical Care Time Critical Care Time: Yes Total Critical Care Time: 35 Attestation: I Yuni Yates PA-C personally performed 35 minutes critical care time not including lines and procedures; preseptal cellulitis need for IV antibiotic therapy and hospital admission Discharge Plan Discharge Clinical Impression: Acute pain in right eye, Migraine headache, Nausea Patient Disposition: Home, Self-Care Instructions: Iritis (ED) Additional Instructions: At this time, it is unclear what is causing your pain, you may have iritis. The MRI was relatively unremarkable and did not show any evidence for a skin infection (cellulitis). The MRI should be much more sensitive than the CT scan in detecting infections. You do have some asymmetric swelling of your right tear duct compared to the left tear duct and I did discuss this with our senior facilities manager, Dr. Ramirez. He wants to see you in the office tomorrow. Call his office tomorrow morning to see what time you can go to the office to be evaluated. Use the Pred Forte 1% drops, 1 drop every 2 hours today while awake. Tomorrow use 1 drop 4 times a day. Use the atropine drops, 1 drop twice a day. Take Tylenol (acetaminophen) 2 pills every 6 hours as needed for pain. For pain not relieved by Tylenol take Dilaudid (hydromorphone) 4 mg, 1 pill every 6 hours as needed for pain. This medication will make you sleepy, do not drive or work while taking this medication.Dilaudid is a narcotic medication and can be addicting. If you are concerned about addiction you can ask the pharmacist for less pills or do not get this prescription filled. Take Zofran ODT 4 mg pills, 1 pill dissolved in your mouth every 8 hours as needed for nausea and vomiting. Follow-up with your doctor in 2 days. Please return to the emergency department if your symptoms get worse or if you develop any symptoms that are concerning to you. Please see the work note Prescriptions: New hydromorphone [Dilaudid] 4 mg tablet 4 mg PO Q6H PRN (Reason: pain) Qty: 10 0RF Rx Instructions: Partial Fill upon patient request. ondansetron 4 mg tablet,disintegrating 4 mg PO Q6H Qty: 20 0RF No Action hydrocortisone [Anusol-HC] 2.5 % cream with perineal applicator 1 appl GA DAILY PRN (Reason: hemorrhoids) Qty: 30 3RF cyclobenzaprine 5 mg tablet 5 mg PO BEDTIME PRN (Reason: muscle spasm) Qty: 4 0RF doxycycline hyclate 100 mg capsule 100 mg PO BID 7 Days Qty: 14 0RF lidocaine 5 % adhesive patch,medicated 1 patch topical DAILY ketotifen fumarate 0.025 % (0.035 %) drops 2 drp ophthalmic (eye) BID Emgality Pen 120 mg/mL pen injector subcut multivitamin with folic acid [Daily-Cristina (with folic acid)] 400 mcg tablet 1 tab PO DAILY peg 3350-electrolytes [Golytely] 236-22.74-6.74 -5.86 gram recon soln 240 ml PO Q10M Qty: 4000 0RF Rx Instructions: as per split prep instructions, until fecal effluent is clear Referrals: Fernando Ramirez [Physician, Ophthalmology] Referral Note: Severe right eye pain Stand Alone Forms: Work/School Release Interventions: ED Discharge Assessment Last Done: 07/24/25 16:31 Discharge Date/Time: 07/24/25 17:06 Print Language: Hong Konger
[2025-07-23 23:51] LABS: MANUAL DIFF FLAG NO
[2025-07-23 23:56] LABS: Hematocrit 37.9 % (37.0-47.0); Hemoglobin 12.6 g/dl (12.0-16.0); Imm Gran Abs Auto 0.03 X10*3/uL (0.00-0.03); Imm Gran Pct Auto 0.3 % (0.0-0.4); Lymphocytes Absolute Auto 3.4 X10*3/uL (1.2-4.9); Mean Corpuscular HGB Conc 33.2 g/dl (31.0-35.0); Mean Corpuscular Hemoglobin 29.7 pg (27.0-33.0); Mean Corpuscular Volume 89.4 fL (80.0-98.0); NRBC Abs Auto 0.000 X10*3/uL (0.0-0.012); NRBC Pct Auto 0.0 /100WBC (0.0-0.2); Platelet Count 326 X10*3/uL (160-400); Red Blood Count 4.24 X10*6/uL (4.20-5.50); White Blood Count 9.9 X10*3/uL (4.8-10.8)
[2025-07-24] VITALS (7 sets, daily range): BP systolic 98–129; BP diastolic 53–73; PULSE 64–84; RESP 12–16; TEMP 36.2–37; O2SAT 95–100
[2025-07-24] MEDS: Fluorescein Sodium STRIP 1 STRIP EYE-RIGHT (00:03)
[2025-07-24 00:13] LABS: Alanine Aminotransferase 116 U/L (0-31); Albumin Level 4.7 g/dL (3.5-5.0); Alkaline Phosphatase 91 U/L (39-117); Anion Gap 13 (12-20); Aspartate Amino Transferase 40 U/L (5-31); Blood Urea Nitrogen 13 mg/dL (9-16); Calcium 9.7 mg/dL (8.4-10.2); Carbon Dioxide 24 mmol/L (22-29); Chloride 107 mmol/L (96-108); Creatinine Clr Calc Pharmacy 97.2; Estimated Glomerular Filt Rate > 60; Magnesium 1.9 mg/dL (1.6-2.6); Potassium 4.0 mmol/L (3.3-5.1); Sodium 140 mmol/L (135-145); Total Protein 7.8 g/dL (6.5-8.0)
[2025-07-24] MEDS: iohexoL 350 MG/ML 100 ML INFUS..BTL 85 ML IV (01:13)
--- NOTE | 2025-07-24 05:04 | P.HPHOSP_ITS ---
History of Present Illness Date of Service: 07/24/25 Attending physician on admission: Luis Fernandodevon Carvajalmez Blade Reyes is a 44 year old woman with a PMHx significant for migraines on galcanezumab injections presents to the ED complaining of progressive swelling of the right eye since Tuesday associated with pain and inability to open her eye. She also reported fever, nausea, photophobia and right-sided headache. She denied any chest pain, palpitations, shortness on breath or abdominal pain. She denied history of tobacco smoking, alcohol abuse or illicit drug use. She was seen in the ED several days ago and received a prescription for doxycycline which she has been taking. In the ED, she was found to have stable vital signs. Blood workup showed no leukocytosis or lactic acidosis. CRP is 0.18. Beta hCG is 6. There are no electrolyte imbalances and renal function is normal. AST [address] ALT [address] Orbit CT scan showed periorbital edema and/or cellulitis appear preseptal. No drainable abscess at this time and fluid of the paraspinal sinuses is nonspecific including air-fluid level in the maxillary sinus as can be associated with sinusitis. ED tx: Morphine 8 mg IV total, Versed 2 mg IV, Zofran 4 mg IV, tetracaine 0.5% ophthalmic solution 3 drops, ketorolac 15 mg IV Review of Systems 2 Review of Systems: All 12 systems were reviewed and normal except as noted in HPI. [facility] Medical History Hemorrhoids Menopausal disorder Hx of gastroenteritis History of depression Rectal bleeding Family History Maternal Aunt Colon cancer Father CAD (coronary artery disease) HTN (hypertension) Malignant melanoma Depression Mother Dementia Hypothyroid Depression Brother No problems noted. 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 Meds Allergies Allergy/AdvReac Type Severity Reaction Status Date / Time strawberry (STRAWBERRY) Allergy Unknown RASH Verified 07/23/25 20:24 norethindrone (From Janneth) AdvReac Unknown Verified 07/23/25 20:24 Active Medications: Current Medications Pharmacy Consult (Consult Rx Vancomycin Dosing) 1 each MISCELLANE DAILY STA Stop: 07/24/25 05:00 Home Medications ?Medication ?Instructions ?Recorded ?Confirmed ?Last Taken ?Type galcanezumab-gnlm 120 mg/mL mg subcut 11/23/24 Unknow n History subcutaneous pen injector (Emgality Pen) ketotifen fumarate 0.025 % (0.035 2 drp ophthalmic (ey e) BID 11/23/24 Unknown History %) eye drops lidocaine 5 % topical patch 1 patch topical DAILY 02/12 Unknown History multivitamin with folic acid 400 1 tab PO DAILY Unknown History mcg tablet (Daily-Cristina (with folic acid)) Physical Exam 2 Vital Signs and Narrative: Vital Signs: Last Vital Signs Temp 98.1 F 07/23/25 22:11 Pulse 69 07/24/25 04:00 Resp 12 07/24/25 04:00 BP 112/65 07/24/25 04:00 Pulse Ox 98 07/24/25 04:00 O2 Del Method Room Air 07/24/25 04:00 BMI result Body Mass Index 27.1 Constitutional - Awake and Alert, No apparent distress. Afebrile. HEENT - Right uuper eyelid is swollen, very tender to palpation but no erythema noted. No fluctuance or discharges. Unable to open eyelid which limited EOM and pupils reaction. Heart - RRR, no murmurs. Lungs - Normal lung expansion, Normal respiratory effort, No respiratory distress, CTA bilaterally Abdomen - Nontenderness Extremities - no calf tenderness bilaterally, no swelling Musculoskeletal - Normal inspection, normal ROM Skin - Warm/Dry Neurological - Alert & oriented x3. Moving all extremities spontaneously. Normal speech. Psychological - Depressed affect. Results Labs 07/23/25 23:44 07/23/25 23:44 Labs: Laboratory Results - last 24 hr 07/23/25 07/24/25 23:44 03:18 MCV 89.4 MCH 29.7 MCHC 33.2 RDW 12.0 Plt Count 326 MPV 9.4 Immature Gran % (Auto) 0.3 Neut % (Auto) 59.6 Lymph % (Auto) 34.5 Collier % (Auto) 4.1 Eos % (Auto) 0.9 Baso % (Auto) 0.6 Lymph # (Auto) 3.4 Collier # (Auto) 0.4 Eos # (Auto) 0.1 Baso # (Auto) 0.1 Abs Immat Gran (auto) 0.03 Absolute Neuts (auto) 5.9 Absolute Nucleated RBC 0.000 Nucleated RBC % (auto) 0.0 ESR 34 H Anion Gap 13 Estim Creat Clear Calc 97.2 Estimated GFR > 60 Random Glucose 90 Lactic Acid 0.7 Calcium 9.7 Magnesium 1.9 Total Bilirubin 0.7 AST 40 H ALT 116 H Alkaline Phosphatase 91 C-Reactive Protein 0.18 Total Protein 7.8 Albumin 4.7 Beta HCG, Quant 6 Assessment and Plan Plan Angelic Reyes is a 44 y/o woman presents with: Right eye pain and edema concerning for pre-septal cellulitis. Head and neck CT scan showed no acute abnormalities. Right orbital CT scan showed periorbital edema and/or cellulitis appear preseptal without drainable abscess + fluids of the paranasal sinuses. Empiric IV antibiotic therapy with Unasyn and vancomycin. Elevated transaminates. ?fatty liver. Check hepatitis panel. Will monitor for now. Chronic mild elevation of HCG. Likely due to perimenopause/menopause. History of migraines. On galcanezumab injections. Code status: Full DVT prophylaxis: Low risk, SCDs, early ambulation. Patient will need hospitalization for at least 2 midnights for concern of preseptal cellulitis management with IV antibiotics after failing p.o. and evaluation by subspecialty Quality VTE VTE Risk Level:: Medical - moderate - high VTE Device Contraindication: N/A - Device Ordered VTE Drug Contraindication: Treatment Not Indicated
[2025-07-24 07:19] LABS: Thyroid Stimulating Hormone 0.84 uIU/mL (0.32-4.0)
[2025-07-24] MEDS: Tetracaine HCl/PF 0.5% Oph Sol 4 ML DROPS 3 DROP EYE-RIGHT (07:55)
--- NOTE | 2025-07-24 08:03 | PC.NURSE ---
Assumed care of pt. c/o 08/30 R eye pain, anxious, cooperative. RR even and unlabored, denies CP or SOB. A+Ox4. Pt medicated for pain.
--- NOTE | 2025-07-24 08:30 | PC.NURSE ---
Med requested eye drops from pharmacy, awaiting meds.
[2025-07-24 08:44] LABS: HBS Num1 0.00 mIU/mL (0-7.99); HBc Num1 0.05 S/CO (0.00-0.79); HBsAGNum1 0.53 S/CO (0.00-0.99); Hepatitis B Surface Antigen Negative (Negative); ~HepC Num1 0.07 S/CO (0.00-0.79); ~Hepatitis B Surface Antibody NONREACTIVE (Nonreactive); ~Hepatitis C Antibody Nonreactive (Nonreactive)
[2025-07-24 08:58] LABS: Creatinine Clr Calc Pharmacy 91.5; Estimated Glomerular Filt Rate > 60
--- NOTE | 2025-07-24 09:13 | PHA.PROG ---
Admission Date/Time: Indication: SKIN Weight in k.2 kg Adjusted body weight in K.94 [place] body weight in K.1 Obesity Dosing Indication % IBW: 27.1 Serum Creatinine - Last 168 Hours 07/23/25 07/24/25 23:44 08:39 Creatinine 0.65 0.69 Estimated CrCl and GFR - Last 168 Hours 07/23/25 07/24/25 23:44 08:39 Estim Creat Clear Calc 97.2 91.5 Estimated GFR > 60 > 60 Vancomycin Loading Dose: 1250 Current Vancomycin Dosing Regimen: 750 Q8 Vancomycin Monitoring using AUC goal of 400 - 600 range with trough as surrogate marker: 540 Date and Time for next Vancomycin Level to be drawn: 07/25 @0600 Pharmacist Comments on Vancomycin Plan: INAPPROPRIATE LOAD OF 1250 WAS GIVEN OVERNIGHT IN THE ED. SHOULD HAVE BEEN 1500 MG. ALSO WILL BE OBTAINING LEVEL BEFORE 5TH DOSE 4TH DOSE IS BEING GIVEN OVERNIGHT. Vancomycin dosing will take advantage of [employer] as a clinical decision support tool that uses Bayesian modeling to calculate individual patient's pharmacokinetic parameters and forecast the patient's drug concentration time course with the target goal AUC 24 range of 400 - 600 mg/L/hr.
[2025-07-24 09:15] LABS: Hepatitis A Antibody IgM 0.23 Index (0-0.79); ~Hepatitis A Antibody IgM Nonreactive (Nonreactive)
[2025-07-24] MEDS: Atropine Sulfate 1 % Ophth Sol 2 ML BOTTLE 1 DROP EYE-RIGHT (09:24)
[2025-07-24] MEDS: prednisoLONE Acetate 1 % Oph Susp 5 ML DRPBTL 1 DROP EYE-RIGHT ×3 (09:24→14:19)
--- NOTE | 2025-07-24 12:25 | PC.NURSE ---
Pt is back from MRI, sts pain has decreased and not feeling nausea, feeling better. RR even and unlabored.
== END 2025-07-24 17:06 | disposition home or self-care (01) ==
PROVIDERS: Internal Medicine; Physician Assistant Medical; Emergency Provider Emergency Medicine Emergency Medical Services; PCP Internal Medicine
DX: G43.909 Migraine, unspecified, not intractable, without status migrainosus (principal); H57.11 Ocular pain, right eye; H53.149 Visual discomfort, unspecified; R11.0 Nausea; R50.9 Fever, unspecified; Z79.899 Other long term (current) drug therapy
CPT/HCPCS: 36415; 70481; 70543; 80053; 82565; 83605; 83735; 84443; 84702; 85025; 85652; 86140; 86704; 86706; 86709; 86803; 87040; 87340; 96361; 96365; 96366; 96367; 96375; 96376; 99285; 99291; A9585; J0295; J0696; J1171; J1200; J1885; J2250; J2270; J2405; J2765; J3374; Q9967

== ENCOUNTER → 2025-07-24 00:21 | Outpatient (BNV) | payer BC, SELFPAY | PROVIDERS: Emergency Provider Emergency Medicine; PCP Internal Medicine; Visit Provider Radiology Neuroradiology | DX: H04.03 Chronic enlargement of lacrimal gland (principal); L03.213 Periorbital cellulitis | CPT/HCPCS: 70481; 70543 ==

== ENCOUNTER 2025-07-25 09:47 | Outpatient (REF) | payer BC, SELFPAY ==
[2025-07-30 14:53] LABS: Atypical P-ANCA Titer 1:40 titer (<1:20); Neutrophil Cyto Ab Screen ATYP P-ANCA POS (NEGATIVE)
[2025-07-30 15:08] LABS: Anti Nuclear Antibody Screen POSITIVE (NEGATIVE); Anti Nuclear Antibody Titer 1:80 titer
[2025-08-01 18:04] LABS: Treponema pallidum Ab FTA ABS Nonreactive (Nonreactive)
== END 2025-07-25 09:48 | disposition home or self-care (01) ==
LOC: HO.LAB 09:47
PROVIDERS: PCP Internal Medicine; Visit Provider Ophthalmology
DX: Z01.84 Encounter for antibody response examination (principal); H20.011 Primary iridocyclitis, right eye
CPT/HCPCS: 36415; 82164; 86036; 86037; 86038; 86039; 86140; 86431; 86780